=== PATIENT | female | born 1955 | race Caucasian/White ===

== ENCOUNTER 2018-03-28 13:13 | Emergency (ER) | payer OTHER ==
[2018-03-28] MEDS ORDERED: Diphtheria,Pertussis(Acell),Tetanus Vaccine 0.5 ML SDV IM ONE (13:26)
--- NOTE | 2018-03-28 13:30 | EDM.PDOC ---
ED HPI GENERAL MEDICAL PROBLEM - General Chief Complaint: General Stated Complaint: LACERATION Time Seen by Provider: 03/28/18 13:25 Source of Information: Reports: Patient History Limitations: Reports: No Limitations - History of Present Illness INITIAL COMMENTS - FREE TEXT/NARRATIVE: Patient is a 63-year-old female who is seen with lacerations to the left index finger done at work with a utility knife this is a small amount 0.4 mm laceration Onset: Today Duration: Minutes:, Constant Location: Reports: Lower Extremity, Left Severity: Mild Improves with: Reports: None Worsens with: Reports: None Context: Reports: Trauma Associated Symptoms: Reports: No Other Symptoms 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 - Related Data Allergies Allergy/AdvReac Type Severity Reaction Status Date / Time No Known Allergies Allergy Verified 03/28/18 13:14 Home Meds: Home Meds Aspirin [Ecotrin] 81 mg PO DAILY 03/28/18 [History] Cyanocobalamin (Vitamin B12) [Vitamin B12] 1,000 mg PO DAILY 03/28/18 [History] Ibuprofen 200 mg PO Q6HR PRN 03/28/18 [History] Pyridoxine HCl [Vitamin B-6] 1 tab PO DAILY 03/28/18 [History] ED ROS GENERAL - Review of Systems Review Of Systems: See Below Constitutional: Reports: No Symptoms HEENT: Reports: No Symptoms Respiratory: Reports: No Symptoms, Shortness of Breath Cardiovascular: Reports: No Symptoms Endocrine: Reports: No Symptoms GI/Abdominal: Reports: No Symptoms : Reports: No Symptoms Musculoskeletal: Reports: No Symptoms Skin: Reports: No Symptoms, Other (Small laceration) Neurological: Reports: No Symptoms Psychiatric: Reports: No Symptoms Hematologic/Lymphatic: Reports: No Symptoms ED EXAM, GENERAL - Physical Exam Exam: See Below Exam Limited By: No Limitations General Appearance: Alert, WD/WN, No Apparent Distress Ears: Normal External Exam, Normal Canal, Hearing Grossly Normal, Normal TMs Ear Exam: Bilateral Ear: Auricle Normal, Canal Normal, TM normal Nose: Normal Inspection, Normal Mucosa, No Blood Throat/Mouth: Normal Inspection, Normal Lips, Normal Teeth, Normal Gums, Normal Oropharynx, Normal Voice, No Airway Compromise Head: Atraumatic, Normocephalic Neck: Normal Inspection, Supple, Non-Tender, Full Range of Motion Respiratory/Chest: No Respiratory Distress, Lungs Clear, Normal Breath Sounds, No Accessory Muscle Use, Chest Non-Tender Cardiovascular: Normal Peripheral Pulses, Regular Rate, Rhythm, No Edema, No Gallop, No JVD, No Murmur, No Rub GI/Abdominal: Normal Bowel Sounds, Soft, Non-Tender, No Organomegaly, No Distention, No Abnormal Bruit, No Mass Rectal (Female) Exam: Deferred Back Exam: Normal Inspection, Full Range of Motion, NT Extremities: Normal Inspection, Normal Range of Motion, Non-Tender, Normal Capillary Refill, No Pedal Edema Neurological: Alert, Oriented, CN II-XII Intact, Normal Cognition, Normal Gait, Normal Reflexes, No Motor/Sensory Deficits Psychiatric: Normal Affect, Normal Mood Skin Exam: Warm, Dry, Intact, Normal Color, No Rash Lymphatic: No Adenopathy Course - Orders/Labs/Meds Orders: Active Orders 24 hr Category Date Time Status Vaccines to be Administered [RC] PER UNIT ROUTINE Care 03/28/18 13:27 Active Meds: Medications Discontinued Medications Generic Name Dose Route Start Last Admin Trade Name Freq PRN Reason Stop Dose Admin Diphtheria/Tetanus/Acell Pertussis 0.5 ml 03/28/18 13:26 03/28/18 13:52 Adacel IM 03/28/18 13:27 0.5 ml .ONCE ONE Administration Departure - Departure Time of Disposition: 14:03 Disposition: Home, Self-Care 01 Condition: Good Clinical Impression: Laceration Laceration of left index finger Qualifiers: Encounter type: initial encounter Damage to nail status: without damage Foreign body presence: without foreign body Qualified Code(s): S61.211A - Laceration without foreign body of left index finger without damage to nail, initial encounter - Discharge Information Instructions: Stitches, [place], or Adhesive Wound Closure, Nonsutured Laceration Care Referrals: PCP,None [Primary Care Provider] - Forms: ED Department Discharge Care Plan Goals: Laceration repair area was prepped and draped after appropriate cleansing of wound the wound was dried and closed with Dermabond patient tolerated well the procedure sent home in satisfactory condition Patient sent home with instructions to keep it dry return if any concerns - My Orders Last 24 Hours: My Active Orders 03/28/18 13:27 Vaccines to be Administered [RC] PER UNIT ROUTINE - Assessment/Plan Last 24 Hours: My Active Orders 03/28/18 13:27 Vaccines to be Administered [RC] PER UNIT ROUTINE
== END 2018-03-28 14:15 | disposition home or self-care (01) ==
LOC: LL.ED 13:13
DX: S61.211A Laceration without foreign body of left index finger without damage to nail, initial encounter (principal); Z79.82 Long term (current) use of aspirin; Z23 Encounter for immunization; W26.0XXA Contact with knife, initial encounter
CPT/HCPCS: 12001; 90471; 90715; 99283

== ENCOUNTER 2018-05-18 13:28 | Inpatient (IN) | payer MEDICARE, OTHER ==
[2018-05-18] MEDS ORDERED: Lactated Ringers 1,000 ML IV ONE (13:39)
[2018-05-18] MEDS ORDERED: Famotidine 20 MG/2 ML SDV IVPUSH ONE (13:39)
[2018-05-18] MEDS ORDERED: Pantoprazole 40 MG Vial IVPUSH ONE (13:39)
[2018-05-18] MEDS ORDERED: Ondansetron 4 MG/2 ML SDV IVPUSH ONE (13:39)
--- NOTE | 2018-05-18 13:39 | EDM.PDOC ---
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 Priority: Medium Current Visit: Yes Onset Date: 05/18/18 Annotation/Comment:: Consider high-protein Glucerna supplements as snacks depending on her clinical course. - Problem List Review Problem List Initiated/Reviewed/Updated: Yes - My Orders Last 24 Hours: My Active Orders 05/18/18 13:39 Peripheral IV Care [RC] . DIRECTED Abdomen Series w Chest 1V [CR] Stat CULTURE URINE [RM] Stat UA W/MICROSCOPIC [URIN] Stat Sodium Chloride 0.9% [Saline Flush] 10 ml FLUSH ASDIRECTED PRN Blood Culture x2 Reflex Set [OM.PC] Urgent Obtain Past Medical Record [OM.PC] Urgent Peripheral IV Insertion Adult [OM.PC] Stat Resuscitation Status Stat 05/18/18 13:45 cefTRIAXone [Rocephin] 1 gm Sodium Chloride 0.9% [Normal Saline] 100 ml IV Q12H metroNIDAZOLE/Normal Saline [Flagyl 500 MG in NS 100 ML] 500 mg Premix Bag 1 bag IV Q8H 05/18/18 13:50 CULTURE BLOOD [BC] Stat 05/18/18 14:07 CULTURE BLOOD [BC] Stat 05/18/18 14:10 H PYLORI STOOL ANTIGEN [MREF] Urgent OCCULT BLOOD DIAGNOSTIC [OP] Stat 05/18/18 14:53 Cardiac Monitoring [RC] . DIRECTED 05/18/18 Breakfast Nothing Per Oral Diet [DIET] - Assessment/Plan Admission H&P: Please use this note as an admission H&P Last 24 Hours: My Active Orders 05/18/18 13:39 Peripheral IV Care [RC] . DIRECTED Abdomen Series w Chest 1V [CR] Stat CULTURE URINE [RM] Stat UA W/MICROSCOPIC [URIN] Stat Sodium Chloride 0.9% [Saline Flush] 10 ml FLUSH ASDIRECTED PRN Blood Culture x2 Reflex Set [OM.PC] Urgent Obtain Past Medical Record [OM.PC] Urgent Peripheral IV Insertion Adult [OM.PC] Stat Resuscitation Status Stat 05/18/18 13:45 cefTRIAXone [Rocephin] 1 gm Sodium Chloride 0.9% [Normal Saline] 100 ml IV Q12H metroNIDAZOLE/Normal Saline [Flagyl 500 MG in NS 100 ML] 500 mg Premix Bag 1 bag IV Q8H 05/18/18 13:50 CULTURE BLOOD [BC] Stat 05/18/18 14:07 CULTURE BLOOD [BC] Stat 05/18/18 14:10 H PYLORI STOOL ANTIGEN [MREF] Urgent OCCULT BLOOD DIAGNOSTIC [OP] Stat 05/18/18 14:53 Cardiac Monitoring [RC] . DIRECTED 05/18/18 Breakfast Nothing Per Oral Diet [DIET] Assessment:: As above Plan: As above. Extensive precautions were given to the patient, who is in agreement with the treatment plan. The patient will require about 3-4 days of inpatient/ acute care secondary to multiple health problems as above.
[2018-05-18] MEDS: cefTRIAXone 1 GM in Sodium Chloride 0.9% 100 ML IV SCH (14:40)
[2018-05-18] MEDS: metroNIDAZOLE/Normal Saline 500 MG in Premix Bag 1 BAG IV SCH ×2 (14:40→21:24)
[2018-05-18] MEDS: Sodium Chloride 0.9% 10 ML Syringe FLUSH PRN ×3 (14:48→21:24)
[2018-05-18] MEDS: Lactated Ringers 1,000 ML IV SCH (16:00)
[2018-05-18] MEDS: Acetaminophen 325 MG Tab PO PRN (19:43)
[2018-05-18] MEDS: Ondansetron 4 MG/2 ML SDV IVPUSH PRN (19:43)
[2018-05-18] MEDS: fentaNYL 100 MCG/2 ML SDV IVPUSH PRN (19:44)
[2018-05-18] MEDS: Sodium Chloride 0.9% 10 ML Syringe FLUSH SCH (19:44)
[2018-05-18] MEDS ORDERED: Temazepam 15 MG Cap PO PRN (20:00)
[2018-05-19] MEDS: cefTRIAXone 1 GM in Sodium Chloride 0.9% 100 ML IV SCH ×2 (00:58→13:05)
[2018-05-19] MEDS: Sodium Chloride 0.9% 10 ML Syringe FLUSH PRN ×6 (00:58→14:52)
[2018-05-19] MEDS: Pantoprazole 40 MG Vial IVPUSH SCH ×2 (00:58→13:23)
[2018-05-19] MEDS: Lactated Ringers 1,000 ML IV SCH ×2 (01:09→19:31)
[2018-05-19] MEDS: fentaNYL 100 MCG/2 ML SDV IVPUSH PRN (01:40)
[2018-05-19] MEDS: traMADol 50 MG Tab PO PRN ×3 (05:13→20:38)
[2018-05-19] MEDS: metroNIDAZOLE/Normal Saline 500 MG in Premix Bag 1 BAG IV SCH (05:13)
[2018-05-19 07:46] LABS: CHLORIDE,CL 106 mmol/L (98-107); SODIUM,NA 140 mmol/L (136-145)
[2018-05-19] MEDS: Vitamin B6-pyridOXINE 100 MG Tab PO SCH (08:35)
[2018-05-19] MEDS: Sodium Chloride 0.9% 10 ML Syringe FLUSH SCH ×2 (08:35→19:34)
[2018-05-19] MEDS: Cyanocobalamin (Vitamin B12) 1,000 MCG Tab PO SCH (08:35)
--- NOTE | 2018-05-19 08:46 | PCM.PN ---
- General Info Date of Service: 05/19/18 Admission Dx/Problem (Free Text): Diverticulitis Functional Status: Reports: Pain Controlled, Tolerating Diet, Ambulating, Urinating. Denies: New Symptoms, Incentive Spirometry Pain Score: 5 - Review of Systems General: Denies: Fever, Weakness, Fatigue, Malaise, Chills, Night Sweats, Appetite (Appetite adequate) HEENT: Reports: Headaches (Stable bilateral frontal). Denies: Ear Pain, Eye Pain, Post Nasal Drip, Sinus Congestion, Sore Throat, Rhinitis, Visual Changes Pulmonary: Reports: No Symptoms. Denies: Shortness of Breath, Pleuritic Chest Pain, Cough, Sputum, Hemoptysis, Wheezing Cardiovascular: Reports: No Symptoms. Denies: Chest Pain, Palpitations, Dyspnea on Exertion, Orthopnea, PND, Edema, Lightheadedness, Other Gastrointestinal: Reports: Abdominal Pain, Diarrhea (About 10 watery bowel movements yesterday with possible purulent component?). Denies: Constipation, Decreased Appetite, Difficulty Swallowing, Flatus, Hematochezia, Melena, Nausea , Vomiting Genitourinary: Reports: No Symptoms. Denies: Dysuria, Frequency, Burning, Pain , Urgency, Incontinence, Hematuria, Retention, Flank Pain Musculoskeletal: Reports: No Symptoms. Denies: Neck Pain, Shoulder Pain, Arm Pain, Hand Pain, Back Pain, Leg Pain, Foot Pain, Joint Pain, Joint Swelling Skin: Reports: No Symptoms. Denies: Pallor, Diaphoresis, Bruising, Pruritis Neurological: Reports: Headache. Denies: Confusion, Dizziness, Numbness, Paresthesia, Pre-Existing Deficit, Tingling, Weakness Psychiatric: Reports: No Symptoms. Denies: Confusion, Depression, Anxiety, Agitation, Cravings, Hallucinations - Patient Data Vitals - Most Recent: Last Vital Signs Temp 36.4 C 05/19/18 05:22 Pulse 65 05/19/18 05:22 Resp 16 05/19/18 05:22 BP 120/68 05/19/18 05:22 Pulse Ox 95 05/19/18 05:22 Vital Signs - 24 hr 05/18/18 05/18/18 05/18/18 13:35 13:36 14:30 Temperature [ Oral] Temperature [ 36.4 C 36.0 C Temporal] Pulse, 91 95 90 Peripheral [ Left Pulse Oximetry] Respiratory 20 18 18 Rate Blood Pressure 109/64 102/72 108/69 [Left Upper Arm ] O2 Sat by Pulse 97 96 98 Oximetry 05/18/18 05/18/18 05/18/18 15:01 15:32 19:54 Temperature [ Oral] Temperature [ 36.4 C 36.4 C 36.6 C Temporal] Pulse, 82 74 75 Peripheral [ Left Pulse Oximetry] Respiratory 18 16 Rate Blood Pressure 119/70 116/73 108/76 [Left Upper Arm ] O2 Sat by Pulse 97 98 98 Oximetry 05/19/18 05/19/18 01:06 05:22 Temperature [ 36.4 C 36.4 C Oral] Temperature [ Temporal] Pulse, 63 65 Peripheral [ Left Pulse Oximetry] Respiratory 18 16 Rate Blood Pressure 129/67 120/68 [Left Upper Arm ] O2 Sat by Pulse 94 L 95 Oximetry Weight - Most Recent: 72.665 kg I&O - Last 24 Hours: Intake & Output 05/18/18 05/19/18 05/19/18 22:59 06:59 14:59 Intake Total 290 2500 Output Total 200 200 Balance 90 2300 Imaging Impressions - Last 24 Hours: property assessment monitor shows normal sinus rhythm with heart rate in the 60s to 70s with no ectopy or arrhythmia Acute abdominal x-rays shows moderate to severe COPD changes with no cardiomegaly, CHF, pulmonary infiltrates, pneumothorax, etc. with mildly prominent proximal aortic arch and mild aortic valve calcification. Mild to moderate nonspecific increased bowel gaseous pattern including very occasional fluid levels with no evidence of free air, ileus, obstruction, etc. Mild scoliosis and mild to moderate osteophytic changes also noted. Lab Results Last 24 Hours: Laboratory Results - last 24 hr 05/18/18 05/18/18 05/18/18 Range/Units 13:50 13:50 13:50 WBC 14.7 H (4.0-10.2) K/uL RBC 5.27 H (3.77-5.09) M/uL Hgb 16.7 H (11.7-15.5) g/dL Hct 49.5 H (34.0-46.0) % MCV 93.9 (84.0-98.0) fL MCH 31.7 (28.2-33.3) pg MCHC 33.7 (31.7-36.0) g/dL RDW 13.5 (11.2-14.1) % Plt Count 242 (150-350) K/uL Neut % (Auto) 77.3 (45.0-80.0) % Lymph % (Auto) 15.3 (10.0-50.0) % [place] % (Auto) 6.7 (2.0-14.0) % Eos % (Auto) 0.4 (0.0-5.0) % Baso % (Auto) 0.3 (0.0-2.0) % Neut # (Auto) 11.39 H (1.40-7.00) K/uL Lymph # (Auto) 2.25 (0.50-3.50) K/uL [place] # (Auto) 0.99 (0.00-1.00) K/uL Eos # (Auto) 0.06 (0.00-0.50) K/uL Baso # (Auto) 0.04 (0.00-0.20) K/uL PT 10.5 (9.8-11.7) SEC INR 1.0 APTT 24.9 (22.1-29.8) SEC Sodium (136-145) mmol/L Potassium (3.5-5.1) mmol/L Chloride (98-107) mmol/L Carbon Dioxide (21.0-32.0) mmol/L BUN (7-18) mg/dL Creatinine (0.51-1.17) mg/dL Est Cr Clr Drug Dosing mL/min Estimated GFR (MDRD) mL/min Glucose (74-106) mg/dL Hemoglobin A1c (4.3-5.7) % Lactic Acid (0.4-2.0) mmol/L Uric Acid (2.6-7.2) mg/dL Calcium (8.5-10.1) mg/dL Magnesium (1.8-2.4) mg/dL Total Bilirubin (0.2-1.0) mg/dL AST (15-37) U/L ALT (12-78) U/L Alkaline Phosphatase (46-116) IU/L Total Protein (6.4-8.2) g/dL Albumin (3.4-5.0) g/dL Amylase 29 (25-115) U/L Lipase (73-393) U/L Specimen Type Urine Color Urine Appearance Urine pH (5.0-9.0) Ur Specific [place] (1.005-1.030) Urine Protein (NEGATIVE) mg/dL Urine Glucose (UA) (NEGATIVE) mg/dL Urine Ketones (NEGATIVE) mg/dL Urine Occult Blood (NEGATIVE) Urine Nitrite (NEGATIVE) Urine Bilirubin (NEGATIVE) Urine Urobilinogen (0.2-1.0) E.U./dL Ur Leukocyte Esterase (NEGATIVE) Urine RBC /HPF Urine WBC /HPF Ur Epithelial Cells /LPF Urine Bacteria (NONE TO FEW) /HPF Hyaline Casts (NEGATIVE) /LPF Granular Casts (NEGATIVE) /LPF Urine Mucus (NEGATIVE) /LPF 05/18/18 05/18/18 05/18/18 Range/Units 13:50 13:50 18:50 WBC (4.0-10.2) K/uL RBC (3.77-5.09) M/uL Hgb (11.7-15.5) g/dL Hct (34.0-46.0) % MCV (84.0-98.0) fL MCH (28.2-33.3) pg MCHC (31.7-36.0) g/dL RDW (11.2-14.1) % Plt Count (150-350) K/uL Neut % (Auto) (45.0-80.0) % Lymph % (Auto) (10.0-50.0) % [place] % (Auto) (2.0-14.0) % Eos % (Auto) (0.0-5.0) % Baso % (Auto) (0.0-2.0) % Neut # (Auto) (1.40-7.00) K/uL Lymph # (Auto) (0.50-3.50) K/uL [place] # (Auto) (0.00-1.00) K/uL Eos # (Auto) (0.00-0.50) K/uL Baso # (Auto) (0.00-0.20) K/uL PT (9.8-11.7) SEC INR APTT (22.1-29.8) SEC Sodium 139 (136-145) mmol/L Potassium 3.5 (3.5-5.1) mmol/L Chloride 102 (98-107) mmol/L Carbon Dioxide 25.3 (21.0-32.0) mmol/L BUN 19 H (7-18) mg/dL Creatinine 1.14 (0.51-1.17) mg/dL Est Cr Clr Drug Dosing 46.67 mL/min Estimated GFR (MDRD) 48 mL/min Glucose 150 H (74-106) mg/dL Hemoglobin A1c (4.3-5.7) % Lactic Acid 1.5 (0.4-2.0) mmol/L Uric Acid 7.2 (2.6-7.2) mg/dL Calcium 9.1 (8.5-10.1) mg/dL Magnesium 2.0 (1.8-2.4) mg/dL Total Bilirubin 0.4 (0.2-1.0) mg/dL AST 29 (15-37) U/L ALT 46 (12-78) U/L Alkaline Phosphatase 40 L (46-116) IU/L Total Protein 7.7 (6.4-8.2) g/dL Albumin 3.2 L (3.4-5.0) g/dL Amylase (25-115) U/L Lipase 92 (73-393) U/L Specimen Type Urinvoid Urine Color Jessica Urine Appearance Slightly cloudy Urine pH 5.0 (5.0-9.0) Ur Specific [place] >= 1.030 (1.005-1.030) Urine Protein 100 H (NEGATIVE) mg/dL Urine Glucose (UA) Negative (NEGATIVE) mg/dL Urine Ketones Trace H (NEGATIVE) mg/dL Urine Occult Blood Negative (NEGATIVE) Urine Nitrite Negative (NEGATIVE) Urine Bilirubin Small H (NEGATIVE) Urine Urobilinogen 0.2 (0.2-1.0) E.U./dL Ur Leukocyte Esterase Negative (NEGATIVE) Urine RBC 0-5 /HPF Urine WBC 10-20 H /HPF Ur Epithelial Cells Many H /LPF Urine Bacteria Moderate H (NONE TO FEW) /HPF Hyaline Casts Few H (NEGATIVE) /LPF Granular Casts Few H (NEGATIVE) /LPF Urine Mucus Few H (NEGATIVE) /LPF 05/19/18 05/19/18 05/19/18 Range/Units 07:05 07:05 07:05 WBC 8.8 (4.0-10.2) K/uL RBC 4.36 (3.77-5.09) M/uL Hgb 14.0 D (11.7-15.5) g/dL Hct 41.3 (34.0-46.0) % MCV 94.7 (84.0-98.0) fL MCH 32.1 (28.2-33.3) pg MCHC 33.9 (31.7-36.0) g/dL RDW 13.2 (11.2-14.1) % Plt Count 186 (150-350) K/uL Neut % (Auto) 63.7 (45.0-80.0) % Lymph % (Auto) 22.4 (10.0-50.0) % [place] % (Auto) 10.2 (2.0-14.0) % Eos % (Auto) 3.2 (0.0-5.0) % Baso % (Auto) 0.5 (0.0-2.0) % Neut # (Auto) 5.58 (1.40-7.00) K/uL Lymph # (Auto) 1.96 (0.50-3.50) K/uL [place] # (Auto) 0.89 (0.00-1.00) K/uL Eos # (Auto) 0.28 (0.00-0.50) K/uL Baso # (Auto) 0.04 (0.00-0.20) K/uL PT (9.8-11.7) SEC INR APTT (22.1-29.8) SEC Sodium 140 (136-145) mmol/L Potassium 3.4 L (3.5-5.1) mmol/L Chloride 106 (98-107) mmol/L Carbon Dioxide 24.7 (21.0-32.0) mmol/L BUN 14 (7-18) mg/dL Creatinine 0.84 (0.51-1.17) mg/dL Est Cr Clr Drug Dosing 63.34 mL/min Estimated GFR (MDRD) > 60 mL/min Glucose 111 H (74-106) mg/dL Hemoglobin A1c 5.8 H (4.3-5.7) % Lactic Acid (0.4-2.0) mmol/L Uric Acid (2.6-7.2) mg/dL Calcium 8.3 L (8.5-10.1) mg/dL Magnesium 1.8 (1.8-2.4) mg/dL Total Bilirubin 0.2 (0.2-1.0) mg/dL AST 25 (15-37) U/L ALT 33 (12-78) U/L Alkaline Phosphatase 27 L (46-116) IU/L Total Protein 6.0 L (6.4-8.2) g/dL Albumin 2.4 L (3.4-5.0) g/dL Amylase 28 (25-115) U/L Lipase 132 (73-393) U/L Specimen Type Urine Color Urine Appearance Urine pH (5.0-9.0) Ur Specific [place] (1.005-1.030) Urine Protein (NEGATIVE) mg/dL Urine Glucose (UA) (NEGATIVE) mg/dL Urine Ketones (NEGATIVE) mg/dL Urine Occult Blood (NEGATIVE) Urine Nitrite (NEGATIVE) Urine Bilirubin (NEGATIVE) Urine Urobilinogen (0.2-1.0) E.U./dL Ur Leukocyte Esterase (NEGATIVE) Urine RBC /HPF Urine WBC /HPF Ur Epithelial Cells /LPF Urine Bacteria (NONE TO FEW) /HPF Hyaline Casts (NEGATIVE) /LPF Granular Casts (NEGATIVE) /LPF Urine Mucus (NEGATIVE) /LPF Blood cultures 2 collected in the emergency room with results pending Ruben Results Last 24 Hours: Microbiology 05/18/18 14:10 Stool Occult Blood (RUBEN) - Final Stool / Feces Hemoccult of stools positive on admission. Stool specimens collected with stool culture and sensitivity and C. difficile toxin evaluation still pending Urine specimen sent for culture and sensitivity Med Orders - Current: Current Medications Acetaminophen (Tylenol) 650 mg PO Q4H PRN PRN Reason: Pain Last Admin: 05/18/18 19:43 Dose: 650 mg Cyanocobalamin (Vitamin B12) 1,000 mcg PO DAILY ESTER Last Admin: 05/19/18 08:35 Dose: 1,000 mcg Famotidine (Pepcid) 20 mg IVPUSH Q12H ESTER Fentanyl (Sublimaze) 50 mcg IVPUSH Q4H PRN PRN Reason: Pain (severe 7-10) Last Admin: 05/19/18 01:40 Dose: 50 mcg Ceftriaxone Sodium 1 gm/ (Sodium Chloride) 100 mls @ 200 mls/hr IV Q12H ESTER Last Admin: 05/19/18 00:58 Dose: 200 mls/hr Metronidazole 500 mg/ Premix 100 mls @ 100 mls/hr IV Q8H [facility] Last Admin: 05/19/18 05:13 Dose: 100 mls/hr Lactated Ringer's (Ringers, Lactated) 1,000 mls @ 100 mls/hr IV ASDIRECTED [facility] Last Admin: 05/19/18 01:09 Dose: 100 mls/hr Ondansetron HCl (Zofran) 4 mg IVPUSH Q6H PRN PRN Reason: Nausea/Vomiting Last Admin: 05/18/18 19:43 Dose: 4 mg Pantoprazole Sodium (Protonix Iv) 40 mg IVPUSH Q12H [facility] Last Admin: 05/19/18 00:58 Dose: 40 mg Pyridoxine HCl (Vitamin B6-Pyridoxine) 25 mg PO DAILY [facility] Last Admin: 05/19/18 08:35 Dose: 25 mg Sodium Chloride (Saline Flush) 10 ml FLUSH ASDIRECTED PRN PRN Reason: Keep Vein Open Last Admin: 05/19/18 05:14 Dose: 10 ml Sodium Chloride (Saline Flush) 10 ml FLUSH Q12HR [facility] Last Admin: 05/19/18 08:35 Dose: 10 ml Temazepam (Restoril) 15 mg PO DAILY@2000 PRN PRN Reason: Insomnia Tramadol HCl (Ultram) 50 mg PO Q6H PRN PRN Reason: Pain (moderate 4-6) Last Admin: 05/19/18 05:13 Dose: 50 mg Discontinued Medications Famotidine (Pepcid) 40 mg IVPUSH ONETIME ONE Stop: 05/18/18 13:40 Last Admin: 05/18/18 14:39 Dose: 40 mg Famotidine (Pepcid) 20 mg IVPUSH Q12H [facility] Lactated Ringer's (Ringers, Lactated) 1,000 mls @ 999 mls/hr IV .BOLUS ONE Stop: 05/18/18 14:39 Last Admin: 05/18/18 14:40 Dose: 999 mls/hr Ceftriaxone Sodium 1 gm/ (Sodium Chloride) 100 mls @ 200 mls/hr IV Q12H [facility] Ondansetron HCl (Zofran) 4 mg IVPUSH ONETIME ONE Stop: 05/18/18 13:40 Last Admin: 05/18/18 14:40 Dose: 4 mg Pantoprazole Sodium (Protonix Iv) 40 mg IVPUSH ONETIME ONE Stop: 05/18/18 13:40 Last Admin: 05/18/18 14:40 Dose: 40 mg Pantoprazole Sodium (Protonix Iv) 40 mg IVPUSH Q12H ESTER - Exam Quality Assessment: DVT Prophylaxis. No: Supplemental Oxygen, Central Line/PICC , Urine Catheter, Skin Breakdown, Restraints General: Alert, Oriented, Cooperative, No Acute Distress HEENT: Pupils Equal, Pupils Reactive, EOMI, Mucous Membr. Moist/[place]. No: Scleral Icterus Neck: Supple, Trachea Midline, No JVD, No Thyromegaly, +2 Carotid Pulse wo Bruit. No: Lymphadenopathy Lungs: Clear to Auscultation, Normal Respiratory Effort. No: Rub Cardiovascular: Regular Rate, Regular Rhythm, No Murmurs. No: Gallops, Rubs GI/Abdominal Exam: Normal Bowel Sounds, No Organomegaly, No Distention, No Abnormal Bruit, No Mass, Rebound (Mild), Tender (Somewhat increased moderate left lower quadrant palpation pain). No: Guarding, Rigid (Female) Exam: Deferred Back Exam: Normal Inspection, Full Range of Motion, Other (Mild scoliosis). No : CVA Tenderness (L), CVA Tenderness (R), Muscle Spasm Extremities: Normal Inspection, Normal Range of Motion, Non-Tender, No Pedal Edema, Normal Capillary Refill. No: Jeff's Sign Peripheral Pulses: 2+: Radial (L), Radial (R), Dorsalis Pedis (L), Dorsalis Pedis (R) Skin: Warm, Dry, Intact Neurological: No New Focal Deficit, Other (No clinical orthostasis) Psy/Mental Status: Anxious (Mild), Depressed (Mild). No: Agitated, Hallucinations, Withdrawal Symptoms - Problem List & Annotations (1) Diverticulitis SNOMED Code(s): 609862964 Code(s): K57.92 - DVTRCLI OF INTEST, PART UNSP, W/O PERF OR ABSCESS W/O BLEED Status: Acute Priority: High Current Visit: Yes Onset Date: ~05/03 Annotation/Comment:: Resolved leukocytosis with current aggressive antibiotic therapy. Note, however, development of beginning peritoneal signs. Secondary to progressive clinical findings CT scan of the abdomen and pelvis with oral and IV contrast will be conducted HERRERA to rule out possible developing bowel perforation and/or abdominal abscess. Note that patient did complete her Cipro and Flagyl on 05/11/18 with refractory symptoms for previously known diverticulitis as per emergency room note. Stool specimens have been collected for culture and sensitivity and C. difficile toxin with results pending. Note Hemoccult-positive stools on admission. High-dose IV Flagyl and IV Rocephin started in the emergency room with patient started on a 1 L IV bolus of lactated Ringer secondary to borderline sepsis criteria, although note normal lactic acid level on admission. Continue Abdominal assessments with vitals. Further GI workup depending on her clinical course with surgical consultation scheduled for later today. Patient would benefit from a colonoscopy after current infection has resolved. Her HCM is also somewhat behind schedule with update of her mammogram, etc. also advisable. Continue IV fluids and telemetry secondary to borderline sepsis criteria. Blood cultures 2 were collected. (2) COPD (chronic obstructive pulmonary disease) SNOMED Code(s): 34669985 Code(s): J44.9 - CHRONIC OBSTRUCTIVE PULMONARY DISEASE, UNSPECIFIED Status : Chronic Priority: Medium Current Visit: Yes Qualifiers: COPD type: emphysema Emphysema type: panlobular Qualified Code(s): J43.1 - Panlobular emphysema Annotation/Comment:: No recent fever or bronchitic type symptoms. Note history of sarcoidosis as above with no current medical therapy required. PFTs should be conducted on an outpatient basis. Smoking cessation HERRERA as below. (3) Hypertension SNOMED Code(s): 26325611 Code(s): I10 - ESSENTIAL (PRIMARY) HYPERTENSION Status: Chronic Priority : Medium Current Visit: Yes Qualifiers: Hypertension type: essential hypertension Qualified Code(s): I10 - Essential (primary) hypertension Annotation/Comment:: No current medical therapy required. Continue to observe blood pressures closely secondary to her borderline sepsis criteria. Blood Pressures variable during this hospitalization with no significant hypotension for now. (4) Mixed anxiety depressive disorder SNOMED Code(s): 611497092 Code(s): F41.8 - OTHER SPECIFIED ANXIETY DISORDERS Status: Chronic Priority: Medium Current Visit: Yes Annotation/Comment:: Stable by history. Moderate control at this time. Note current nonspecific headache. The patient did receive IV fentanyl yesterday with additional when necessary Ultram use for control of her abdominal pain. Continue to observe closely with no change in medical therapy for now. (5) Osteoarthritis SNOMED Code(s): 214478441 Code(s): M19.90 - UNSPECIFIED OSTEOARTHRITIS, UNSPECIFIED SITE Status: Chronic Priority: Medium Current Visit: Yes Qualifiers: Osteoarthritis location: multiple joints Osteoarthritis type: primary Qualified Code(s): M15.0 - Primary generalized (osteo)arthritis Annotation/Comment:: Stable by history (6) Peptic reflux disease SNOMED Code(s): 661636861 Code(s): K21.9 - GASTRO-ESOPHAGEAL REFLUX DISEASE WITHOUT ESOPHAGITIS Status: Chronic Priority: Medium Current Visit: Yes Annotation/Comment:: Stable by history. High-dose IV Protonix and IV Pepcid given in the emergency room. (7) Sarcoidosis SNOMED Code(s): 72795159 Code(s): D86.9 - SARCOIDOSIS, UNSPECIFIED Status: Chronic Priority: Medium Current Visit: Yes Annotation/Comment:: As above (8) Tobacco abuse counseling SNOMED Code(s): 590609366, 310883102, 258170598 Code(s): Z71.6 - TOBACCO ABUSE COUNSELING Status: Chronic Priority: Medium Current Visit: Yes Annotation/Comment:: Tobacco cessation information to be provided at discharge. She does not need a nicotine patch by her history. (9) Hypoalbuminemia SNOMED Code(s): 001096520 Code(s): E88.09 - OTH DISORDERS OF PLASMA-PROTEIN METABOLISM, NEC Status: Acute Priority: Medium Current Visit: Yes Onset Date: 05/18/18 Annotation/Comment:: Initiate high-protein Glucerna supplements as snacks (10) UTI (urinary tract infection) SNOMED Code(s): 59819021 Code(s): N39.0 - URINARY TRACT INFECTION, SITE NOT SPECIFIED Status: Acute Priority: Medium Current Visit: Yes Onset Date: 05/19/18 Qualifiers: Urinary tract infection type: acute cystitis Hematuria presence: without hematuria Qualified Code(s): N30.00 - Acute cystitis without hematuria Annotation/Comment:: Borderline UTI by yesterday's UA. Urine culture and sensitivity pending. Continue antibiotic therapy as above. - Problem List Review Problem List Initiated/Reviewed/Updated: Yes - My Orders Last 24 Hours: My Active Orders 05/18/18 13:39 Peripheral IV Care [RC] . DIRECTED Abdomen Series w Chest 1V [CR] Stat Sodium Chloride 0.9% [Saline Flush] 10 ml FLUSH ASDIRECTED PRN Blood Culture x2 Reflex Set [OM.PC] Urgent Peripheral IV Insertion Adult [OM.PC] Stat Resuscitation Status Stat 05/18/18 13:45 cefTRIAXone [Rocephin] 1 gm Sodium Chloride 0.9% [Normal Saline] 100 ml IV Q12H metroNIDAZOLE/Normal Saline [Flagyl 500 MG in NS 100 ML] 500 mg Premix Bag 1 bag IV Q8H 05/18/18 13:50 CULTURE BLOOD [BC] Stat 05/18/18 14:07 CULTURE BLOOD [BC] Stat 05/18/18 14:10 H PYLORI STOOL ANTIGEN [MREF] Urgent 05/18/18 14:53 Cardiac Monitoring [RC] Q2HR 05/18/18 15:32 Communication Order [RC] Q4HR Communication Order [RC] ROUTINE Height and Weight [RC] DAILY Intake and Output Strict [RC] ASDIRECTED Oxygen Therapy [RC] PRN Pulse Oximetry [RC] ASDIRECTED Up With Assistance [RC] ASDIRECTED Vital Signs [RC] Q4HR C DIFFICILE TOXIN BY PCR [MREF] Routine Acetaminophen [Tylenol] 650 mg PO Q4H PRN Ondansetron [Zofran] 4 mg IVPUSH Q6H PRN GM Immunization Reflex [OM.PC] Click To Edit 05/18/18 15:34 Communication, Vaccine [RC] PER UNIT ROUTINE 05/18/18 15:36 Notify Provider Consults [RC] ASDIRECTED 05/18/18 15:43 Cardiac Monitoring [RC] . DIRECTED 05/18/18 15:45 Lactated Ringers [Ringers, Lactated] 1,000 ml IV ASDIRECTED 05/18/18 16:05 STOOL CULTURE [MREF] Routine 05/18/18 18:50 CULTURE URINE [RM] Stat UA W/MICROSCOPIC [URIN] Stat 05/18/18 19:10 traMADol [Ultram] 50 mg PO Q6H PRN 05/18/18 19:12 fentaNYL [Sublimaze] 50 mcg IVPUSH Q4H PRN 05/18/18 20:00 Sodium Chloride 0.9% [Saline Flush] 10 ml FLUSH Q12HR Temazepam [Restoril] 15 mg PO DAILY@1999 PRN 05/18/18 Dinner Heart Healthy Diet [DIET] 05/19/18 01:30 Pantoprazole [ProTONIX IV] 40 mg IVPUSH Q12H 05/19/18 05:11 Consult to Physician [CONS] Routine Abdomen Series w Chest 1V [CR] Routine 05/19/18 06:48 Isolation [COMM] Routine 05/19/18 08:00 Cyanocobalamin (Vitamin B12) [Vitamin B12] 1,000 mcg PO DAILY Vitamin B6-pyridOXINE 25 mg PO DAILY 05/19/18 08:44 Abdomen Pelvis w Cont [CT] Urgent 05/19/18 15:30 Famotidine [Pepcid] 20 mg IVPUSH Q12H - Assessment Assessment:: As above - Plan Plan:: As above. Extensive precautions were given to the patient, who is in agreement with the treatment plan. Anticipate an additional 3 days of inpatient/acute care versus possible transfer to [place] for surgery, if abdominal abscesses present.
[2018-05-19] MEDS ORDERED: Iopamidol 612 MG/ML 100 ML Bottle IVPUSH ONE (08:48)
[2018-05-19] MEDS: metroNIDAZOLE 500 MG Tab PO SCH ×2 (13:04→20:46)
[2018-05-19] MEDS ORDERED: Loperamide 2 MG Tab PO ONE (14:43)
[2018-05-19] MEDS ORDERED: Loperamide 2 MG Tab PO PRN (14:43)
[2018-05-19] MEDS: Famotidine 20 MG/2 ML SDV IVPUSH SCH (14:53)
[2018-05-19] MEDS ORDERED: cefTRIAXone 1 GM in Sodium Chloride 0.9% 100 ML IV SCH (15:32)
[2018-05-19] MEDS ORDERED: Pantoprazole 40 MG Vial IVPUSH SCH (21:00)
[2018-05-19] MEDS ORDERED: Famotidine 20 MG/2 ML SDV IVPUSH SCH (21:00)
[2018-05-20] MEDS: cefTRIAXone 1 GM in Sodium Chloride 0.9% 100 ML IV SCH (02:27)
[2018-05-20] MEDS: Pantoprazole 40 MG Vial IVPUSH SCH ×2 (02:27→13:24)
[2018-05-20] MEDS: traMADol 50 MG Tab PO PRN ×2 (02:35→13:21)
[2018-05-20] MEDS: Famotidine 20 MG/2 ML SDV IVPUSH SCH ×2 (03:30→15:30)
[2018-05-20] MEDS: metroNIDAZOLE 500 MG Tab PO SCH ×3 (05:47→21:54)
[2018-05-20 07:58] LABS: CHLORIDE,CL 108 mmol/L (98-107); SODIUM,NA 142 mmol/L (136-145)
[2018-05-20] MEDS: Vitamin B6-pyridOXINE 100 MG Tab PO SCH (08:01)
[2018-05-20] MEDS: Cyanocobalamin (Vitamin B12) 1,000 MCG Tab PO SCH (08:03)
[2018-05-20] MEDS: Sodium Chloride 0.9% 10 ML Syringe FLUSH SCH ×2 (08:04→19:03)
[2018-05-20] MEDS: Acetaminophen 325 MG Tab PO PRN (08:04)
--- NOTE | 2018-05-20 08:18 | OR ---
Date of Procedure: 05/19/2018 HISTORY OF PRESENT ILLNESS: This 63-year-old female was admitted yesterday with complaints of continued abdominal pain and diarrhea. She says she has had these symptoms for about 6 weeks. Approximately 2 weeks ago, she underwent a CT scan for evaluation of her symptoms and was diagnosed with sigmoid diverticulitis. She was placed on oral antibiotics, and she says she seemed to improve slightly, but once she stopped the antibiotics, the symptoms worsened again, which prompted her admission to the hospital yesterday. She describes her pain is being mainly in the lower abdomen and it is crampy in nature. It is associated with diarrhea, and recently she saw some blood in her stool with this. Her appetite has been decreased with this. To further evaluate her symptoms, she underwent a CT scan of the abdomen today and this was interpreted as showing thickening of the bowel wall along most of the left half of the colon, although there did appear to be some improvement in the diverticulitis. These findings were felt to be worrisome for C. difficile colitis. PAST MEDICAL HISTORY: The patient's past medical history shows that she has otherwise been healthy. MEDICATIONS: She does not take any routine medications. PAST SURGICAL HISTORY: She has no previous surgery. ALLERGIES: She is allergic to sulfa. FAMILY HISTORY: Negative for any known gastrointestinal abnormalities. SOCIAL HISTORY: The patient does currently work a few hours every week. She is not currently . REVIEW OF SYSTEMS: On system review, she indicates that before this episode, her bowels worked well. She does not typically have symptoms of heartburn and has been active without shortness of breath or chest pain. She also notes that she has had some urinary discomfort with this abdominal pain. PHYSICAL EXAMINATION: VITAL SIGNS: Temperature of 97.7, pulse 62, blood pressure is 104/73. GENERAL: The patient is an alert, adult female. She is currently in no acute distress. HEENT: Her head is normocephalic. No scleral icterus. GASTROINTESTINAL: Her abdomen is mildly distended. There is tenderness with mild guarding to palpation in the left lower and mid lower abdomen. I do not feel any palpable mass. Her upper abdomen does not demonstrate any tenderness and it is soft and the right lower quadrant shows minimal tenderness. She has no CVA tenderness. EXTREMITIES: No edema. DIAGNOSTIC DATA: Serum white blood cell count this morning is normal at 8.8, which is down from 14.7 upon admission yesterday. Chemistry studies show normal kidney function and no liver enzyme elevation. IMPRESSION: 1. Clostridium difficile colitis. 2. History of sigmoid diverticulitis. RECOMMENDATIONS: Agree with current plan to convert to oral Flagyl for treating the C. difficile. Once the patient's inflammation has resolved in approximately 4 to 6 weeks, the patient will need colonoscopy. This can be scheduled through her local provider. Case was discussed with Dr. Cotter. CHRYSTAL Sebastian MD /[id number]
--- NOTE | 2018-05-20 09:00 | PCM.PN ---
- General Info Date of Service: 05/20/18 Admission Dx/Problem (Free Text): Diverticulitis Functional Status: Reports: Pain Controlled, Tolerating Diet, Ambulating, Urinating, New Symptoms. Denies: Incentive Spirometry Pain Score: 7 - Review of Systems General: Denies: Fever, Weakness, Fatigue, Malaise, Chills, Night Sweats, Appetite (Appetite good) HEENT: Reports: No Symptoms. Denies: Dysphasia, Ear Pain, Eye Pain, Glasses, Headaches, Sinus Congestion, Sore Throat, Rhinitis, Visual Changes Pulmonary: Reports: No Symptoms. Denies: Shortness of Breath, Pleuritic Chest Pain, Cough, Sputum, Wheezing Cardiovascular: Reports: No Symptoms. Denies: Chest Pain, Palpitations, Dyspnea on Exertion, Orthopnea, PND, Edema, Lightheadedness Gastrointestinal: Reports: Abdominal Pain, Diarrhea. Denies: Constipation, Decreased Appetite, Difficulty Swallowing, Flatus, Hematochezia, Melena, Nausea , Vomiting Genitourinary: Reports: No Symptoms. Denies: Dysuria, Frequency, Burning, Pain , Urgency, Incontinence, Hematuria, Retention, Flank Pain Musculoskeletal: Reports: No Symptoms. Denies: Neck Pain, Shoulder Pain, Arm Pain, Back Pain, Leg Pain Skin: Reports: No Symptoms. Denies: Pallor, Diaphoresis, Bruising Neurological: Reports: No Symptoms. Denies: Confusion, Dizziness, Headache, Numbness, Paresthesia, Tingling, Weakness Psychiatric: Reports: No Symptoms. Denies: Confusion, Depression, Agitation, Hallucinations - Patient Data Vitals - Most Recent: Last Vital Signs Temp 36.4 C 05/20/18 08:00 Pulse 65 05/20/18 08:00 Resp 13 05/20/18 08:00 BP 130/73 05/20/18 08:00 Pulse Ox 94 L 05/20/18 08:00 Vital Signs - 24 hr 05/19/18 05/19/18 05/19/18 11:56 16:00 19:04 Temperature [ 36.2 C 36.4 C Oral] Pulse, 73 73 66 Peripheral [ Left Pulse Oximetry] Respiratory 16 18 18 Rate Blood Pressure 110/59 L 113/69 115/63 [Left Upper Arm ] O2 Sat by Pulse 96 95 95 Oximetry 05/20/18 08:00 Temperature [ 36.4 C Oral] Pulse, 65 Peripheral [ Left Pulse Oximetry] Respiratory 13 Rate Blood Pressure 130/73 [Left Upper Arm ] O2 Sat by Pulse 94 L Oximetry Weight - Most Recent: 72.665 kg I&O - Last 24 Hours: Intake & Output 05/19/18 05/20/18 05/20/18 22:59 06:59 14:59 Intake Total 1837 Output Total 700 Balance 1137 Imaging Impressions - Last 24 Hours: CT scan of the abdomen and pelvis with oral and IV contrast conducted on 05/19/18 confirms suspicion of probable C. difficile colitis extending to the transverse colon. Previous sigmoid diverticulitis is actually improving. Additional moderate hiatal hernia noted. No evidence of bowel perforation, abscess, etc. quality assurance consultant shows normal sinus rhythm in the 60s with no ectopy or arrhythmia. Lab Results Last 24 Hours: Laboratory Results - last 24 hr 05/20/18 05/20/18 05/20/18 Range/Units 07:13 07:13 07:13 WBC 5.5 (4.0-10.2) K/uL RBC 4.06 (3.77-5.09) M/uL Hgb 12.8 (11.7-15.5) g/dL Hct 38.7 (34.0-46.0) % MCV 95.3 (84.0-98.0) fL MCH 31.5 (28.2-33.3) pg MCHC 33.1 (31.7-36.0) g/dL RDW 13.2 (11.2-14.1) % Plt Count 186 (150-350) K/uL Neut % (Auto) 55.3 (45.0-80.0) % Lymph % (Auto) 26.1 (10.0-50.0) % [place] % (Auto) 12.7 (2.0-14.0) % Eos % (Auto) 5.5 H (0.0-5.0) % Baso % (Auto) 0.4 (0.0-2.0) % Neut # (Auto) 3.02 (1.40-7.00) K/uL Lymph # (Auto) 1.42 (0.50-3.50) K/uL [place] # (Auto) 0.69 (0.00-1.00) K/uL Eos # (Auto) 0.30 (0.00-0.50) K/uL Baso # (Auto) 0.02 (0.00-0.20) K/uL Sodium 142 (136-145) mmol/L Potassium 3.3 L (3.5-5.1) mmol/L Chloride 108 H (98-107) mmol/L Carbon Dioxide 26.2 (21.0-32.0) mmol/L BUN 8 (7-18) mg/dL Creatinine 0.76 (0.51-1.17) mg/dL Est Cr Clr Drug Dosing 70.01 mL/min Estimated GFR (MDRD) > 60 mL/min Glucose 95 (74-106) mg/dL Lactic Acid 0.8 (0.4-2.0) mmol/L Calcium 7.9 L (8.5-10.1) mg/dL Magnesium 1.6 L (1.8-2.4) mg/dL Total Bilirubin 0.1 L (0.2-1.0) mg/dL AST 26 (15-37) U/L ALT 28 (12-78) U/L Alkaline Phosphatase 24 L (46-116) IU/L Total Protein 5.4 L (6.4-8.2) g/dL Albumin 2.2 L (3.4-5.0) g/dL Ruben Results Last 24 Hours: Microbiology 05/18/18 18:50 Urine Culture - Final Urine, Clean Catch MIXED POSITIVE DIANA DAY 2 05/18/18 14:07 Aerobic Blood Culture - Preliminary Blood - Venous - Lab Draw NO GROWTH AFTER 1 DAY Anaerobic Blood Culture - Preliminary NO GROWTH AFTER 1 DAY 05/18/18 13:50 Aerobic Blood Culture - Preliminary Blood - Venous NO GROWTH AFTER 1 DAY Anaerobic Blood Culture - Preliminary NO GROWTH AFTER 1 DAY Note previous positive Hemoccult. Stool specimens for C. difficile toxin, culture, and sensitivity are still pending. Urine culture and sensitivity still pending. Med Orders - Current: Current Medications Acetaminophen (Tylenol) 650 mg PO Q4H PRN PRN Reason: Pain Last Admin: 05/20/18 08:04 Dose: 650 mg Cyanocobalamin (Vitamin B12) 1,000 mcg PO DAILY ESTER Last Admin: 05/20/18 08:03 Dose: 1,000 mcg Famotidine (Pepcid) 20 mg IVPUSH Q12H ESTER Last Admin: 05/20/18 03:30 Dose: 20 mg Fentanyl (Sublimaze) 50 mcg IVPUSH Q4H PRN PRN Reason: Pain (severe 7-10) Last Admin: 05/19/18 01:40 Dose: 50 mcg Ceftriaxone Sodium 1 gm/ (Sodium Chloride) 100 mls @ 200 mls/hr IV Q12H COUNT INCLUDES THE [facility] Last Admin: 05/20/18 02:27 Dose: 200 mls/hr Lactated Ringer's (Ringers, Lactated) 1,000 mls @ 100 mls/hr IV ASDIRECTED COUNT INCLUDES THE [facility] Last Admin: 05/19/18 19:31 Dose: 100 mls/hr Loperamide HCl (Imodium Ad) 2 mg PO Q4H PRN PRN Reason: Diarrhea Stop: 05/21/18 08:00 Last Admin: 05/20/18 08:12 Dose: 2 mg Metronidazole (Flagyl) 500 mg PO Q8H COUNT INCLUDES THE [facility] Last Admin: 05/20/18 05:47 Dose: 500 mg Ondansetron HCl (Zofran) 4 mg IVPUSH Q6H PRN PRN Reason: Nausea/Vomiting Last Admin: 05/18/18 19:43 Dose: 4 mg Pantoprazole Sodium (Protonix Iv) 40 mg IVPUSH Q12H COUNT INCLUDES THE [facility] Last Admin: 05/20/18 02:27 Dose: 40 mg Pyridoxine HCl (Vitamin B6-Pyridoxine) 25 mg PO DAILY COUNT INCLUDES THE [facility] Last Admin: 05/20/18 08:01 Dose: 25 mg Sodium Chloride (Saline Flush) 10 ml FLUSH ASDIRECTED PRN PRN Reason: Keep Vein Open Last Admin: 05/19/18 14:52 Dose: 10 ml Sodium Chloride (Saline Flush) 10 ml FLUSH Q12HR COUNT INCLUDES THE [facility] Last Admin: 05/20/18 08:04 Dose: Not Given Temazepam (Restoril) 15 mg PO DAILY@2000 PRN PRN Reason: Insomnia Last Admin: 05/19/18 20:47 Dose: 15 mg Tramadol HCl (Ultram) 50 mg PO Q6H PRN PRN Reason: Pain (moderate 4-6) Last Admin: 05/20/18 02:35 Dose: 50 mg Discontinued Medications Famotidine (Pepcid) 40 mg IVPUSH ONETIME ONE Stop: 05/18/18 13:40 Last Admin: 05/18/18 14:39 Dose: 40 mg Famotidine (Pepcid) 20 mg IVPUSH Q12H COUNT INCLUDES THE [facility] Lactated Ringer's (Ringers, Lactated) 1,000 mls @ 999 mls/hr IV .BOLUS ONE Stop: 05/18/18 14:39 Last Admin: 05/18/18 14:40 Dose: 999 mls/hr Metronidazole 500 mg/ Premix 100 mls @ 100 mls/hr IV Q8H COUNT INCLUDES THE [facility] Last Admin: 05/19/18 05:13 Dose: 100 mls/hr Ceftriaxone Sodium 1 gm/ (Sodium Chloride) 100 mls @ 200 mls/hr IV Q12H COUNT INCLUDES THE [facility] Iopamidol (Isovue-300 (61%)) 100 ml IVPUSH ONETIME ONE Stop: 05/19/18 08:49 Last Admin: 05/19/18 10:16 Dose: 100 ml Loperamide HCl (Imodium Ad) 4 mg PO ONETIME ONE Stop: 05/19/18 14:44 Last Admin: 05/19/18 14:53 Dose: 4 mg Ondansetron HCl (Zofran) 4 mg IVPUSH ONETIME ONE Stop: 05/18/18 13:40 Last Admin: 05/18/18 14:40 Dose: 4 mg Pantoprazole Sodium (Protonix Iv) 40 mg IVPUSH ONETIME ONE Stop: 05/18/18 13:40 Last Admin: 05/18/18 14:40 Dose: 40 mg Pantoprazole Sodium (Protonix Iv) 40 mg IVPUSH Q12H COUNT INCLUDES THE [facility] - Exam Quality Assessment: DVT Prophylaxis. No: Supplemental Oxygen, Central Line/PICC , Urine Catheter, Skin Breakdown, Restraints General: Alert, Oriented, Cooperative, No Acute Distress HEENT: Pupils Equal, Pupils Reactive, EOMI, Mucous Membr. Moist/[place] Neck: Supple, Trachea Midline, No JVD, No Thyromegaly. No: Lymphadenopathy Lungs: Clear to Auscultation, Normal Respiratory Effort. No: Rub Cardiovascular: Regular Rate, Regular Rhythm, No Murmurs. No: Gallops, Rubs GI/Abdominal Exam: Normal Bowel Sounds, No Organomegaly, No Distention, No Abnormal Bruit, No Mass, Rebound (Borderline rebound much improved from yesterday), Tender (Credit Director moderate left lower quadrant palpation pain). No : Guarding (Female) Exam: Deferred Back Exam: Normal Inspection, Full Range of Motion. No: CVA Tenderness (L), CVA Tenderness (R), Muscle Spasm Extremities: Normal Inspection, Normal Range of Motion, Non-Tender, No Pedal Edema, Normal Capillary Refill Peripheral Pulses: 2+: Radial (L), Radial (R), Dorsalis Pedis (L), Dorsalis Pedis (R) Skin: Warm, Dry, Intact. No: Ecchymosis Psy/Mental Status: Alert, Normal Affect, Normal Mood. No: Agitated, Hallucinations, Withdrawal Symptoms - Problem List & Annotations (1) Diverticulitis SNOMED Code(s): 404066324 Code(s): K57.92 - DVTRCLI OF INTEST, PART UNSP, W/O PERF OR ABSCESS W/O BLEED Status: Acute Priority: High Current Visit: Yes Onset Date: ~05/03 Annotation/Comment:: WBCs continue to remain normal despite change of IV Flagyl to oral regimen for her suspected C. difficile colitis, although stool cultures are still pending as above.. IV Rocephin will be discontinued. Surgical consultation report from yesterday was reviewed. Note CT scan of the abdomen and pelvis results as above. The patient does not have any insurance with various treatment options for probable C. difficile colitis discussed. Continue oral Flagyl regimen for now with additional 2 week regimen after hospital discharge. Follow-up C. difficile toxin specimen should be collected after completion of the above therapy. The patient's sister will be provided information concerning thorough disinfection of the patient's home with bleach, including clothing, bed sheets, bathroom, and all surfaces of the home including doorknobs, etc.. This disinfection should also be repeated after completion of the Flagyl regimen as above. Probiotic intestinal support was initiated today with this to be continued until C. difficile infection has been successfully completely treated. If follow-up C. difficile toxin remains positive consideration should be given to oral vancomycin in compounded form through [facility] pharmacy, which would run about $50$80 per day for the 4 times a day regimen. Oral Dificid therapy is cost prohibitive with cost of about $5000. Follow-up colonoscopy recommended about 4 weeks after successful completion of her current infection as above. Dr. Almeida assumes care of the patient tomorrow with possible discharge to home. Borderline peritonitis today, however significantly improved from yesterday. Note that patient did complete her Cipro and Flagyl on 05/11/18 with refractory symptoms for previously known diverticulitis as per emergency room note. Note Hemoccult- positive stools on admission with iron studies to be conducted tomorrow. High- dose IV Flagyl and IV Rocephin were started in the emergency room with patient also started on a 1 L IV bolus of lactated Ringer's secondary to borderline sepsis criteria, although note normal lactic acid levels during this hospitalization. Continue Abdominal assessments with vitals. Her HCM is also somewhat behind schedule with update of her mammogram, etc. also advisable. Continue IV fluids. Telemetry to be discontinued today with previous borderline sepsis criteria. Blood cultures 2 are negative to this point. (2) COPD (chronic obstructive pulmonary disease) SNOMED Code(s): 72327873 Code(s): J44.9 - CHRONIC OBSTRUCTIVE PULMONARY DISEASE, UNSPECIFIED Status : Chronic Priority: Medium Current Visit: Yes Qualifiers: COPD type: emphysema Emphysema type: panlobular Qualified Code(s): J43.1 - Panlobular emphysema Annotation/Comment:: No recent fever or bronchitic type symptoms. Note history of sarcoidosis as above with no current medical therapy required. PFTs should be conducted on an outpatient basis. Smoking cessation HERRERA as below. (3) Hypertension SNOMED Code(s): 11247544 Code(s): I10 - ESSENTIAL (PRIMARY) HYPERTENSION Status: Chronic Priority : Medium Current Visit: Yes Qualifiers: Hypertension type: essential hypertension Qualified Code(s): I10 - Essential (primary) hypertension Annotation/Comment:: Blood pressures under good control. No current medical therapy required. Continue to observe blood pressures closely secondary to her borderline sepsis criteria. Blood Pressures variable during this hospitalization with no significant hypotension for now. (4) Mixed anxiety depressive disorder SNOMED Code(s): 841092770 Code(s): F41.8 - OTHER SPECIFIED ANXIETY DISORDERS Status: Chronic Priority: Medium Current Visit: Yes Annotation/Comment:: Stable by history. Moderate control on admission, however improved at this time. Note nonspecific headache resolved this morning. The patient did receive IV fentanyl on 05/18 with additional when necessary Ultram use for control of her abdominal pain. Continue to observe closely with no change in medical therapy for now. (5) Osteoarthritis SNOMED Code(s): 866729044 Code(s): M19.90 - UNSPECIFIED OSTEOARTHRITIS, UNSPECIFIED SITE Status: Chronic Priority: Medium Current Visit: Yes Qualifiers: Osteoarthritis location: multiple joints Osteoarthritis type: primary Qualified Code(s): M15.0 - Primary generalized (osteo)arthritis Annotation/Comment:: Stable by history (6) Peptic reflux disease SNOMED Code(s): 936584403 Code(s): K21.9 - GASTRO-ESOPHAGEAL REFLUX DISEASE WITHOUT ESOPHAGITIS Status: Chronic Priority: Medium Current Visit: Yes Annotation/Comment:: Stable by history. High-dose IV Protonix and IV Pepcid started in the emergency room and continued during this hospitalization. (7) Sarcoidosis SNOMED Code(s): 76608725 Code(s): D86.9 - SARCOIDOSIS, UNSPECIFIED Status: Chronic Priority: Medium Current Visit: Yes Annotation/Comment:: As above (8) Tobacco abuse counseling SNOMED Code(s): 270053205, 963991038, 953534617 Code(s): Z71.6 - TOBACCO ABUSE COUNSELING Status: Chronic Priority: Medium Current Visit: Yes Annotation/Comment:: Tobacco cessation information to be provided at discharge. She does not want a nicotine patch during this hospitalization. (9) Hypoalbuminemia SNOMED Code(s): 079354754 Code(s): E88.09 - OTH DISORDERS OF PLASMA-PROTEIN METABOLISM, NEC Status: Acute Priority: Medium Current Visit: Yes Onset Date: 05/18/18 Annotation/Comment:: Initiated high-protein Glucerna supplements as snacks on 05/19 with this to be continued at discharge. Close follow-up by regular provider. (10) UTI (urinary tract infection) SNOMED Code(s): 94347101 Code(s): N39.0 - URINARY TRACT INFECTION, SITE NOT SPECIFIED Status: Acute Priority: Medium Current Visit: Yes Onset Date: 05/19/18 Qualifiers: Urinary tract infection type: acute cystitis Hematuria presence: without hematuria Qualified Code(s): N30.00 - Acute cystitis without hematuria Annotation/Comment:: Borderline UTI by yesterday's UA. Urine culture and sensitivity pending. Continue antibiotic therapy as above. Additional antibiotic therapy with caution secondary to current C. difficile colitis with IV Rocephin given during this hospitalization. (11) Hypokalemia SNOMED Code(s): 99883950 Code(s): E87.6 - HYPOKALEMIA Status: Acute Priority: High Current Visit : Yes Onset Date: 05/20/18 Annotation/Comment:: Hypokalemia secondary to her diarrhea. Imodium started yesterday with improved diarrhea and only 3 stools yesterday evening. Initiate potassium chloride oral supplement. Close follow-up by regular providers. Blood work to be repeated in the a.m. (12) Hypomagnesemia SNOMED Code(s): 048174483 Code(s): E83.42 - HYPOMAGNESEMIA Status: Acute Priority: Medium Current Visit: Yes Onset Date: ~05/20/18 Annotation/Comment:: Persistent decreased magnesium levels today. IV magnesium supplementation secondary to her current diarrhea. Repeat magnesium level in the a.m. with close follow-up by her regular provider. - Problem List Review Problem List Initiated/Reviewed/Updated: Yes - My Orders Last 24 Hours: My Active Orders 05/19/18 08:00 Cyanocobalamin (Vitamin B12) [Vitamin B12] 1,000 mcg PO DAILY Vitamin B6-pyridOXINE 25 mg PO DAILY 05/19/18 08:44 Abdomen Pelvis w Cont [CT] Urgent 05/19/18 09:08 Communication Order [RC] ROUTINE 05/19/18 13:30 metroNIDAZOLE [Flagyl] 500 mg PO Q8H 05/19/18 14:43 Loperamide [Imodium AD] 2 mg PO Q4H PRN 05/19/18 15:30 Famotidine [Pepcid] 20 mg IVPUSH Q12H - Assessment Assessment:: As above - Plan Plan:: As above. Extensive precautions were given to the patient, who is in agreement with the treatment plan. Anticipate an additional 1-2 days of inpatient/acute care.
[2018-05-20] MEDS ORDERED: Magnesium Sulfate/Water 4 GM in Premix Bag 1 BAG IV ONE (09:31)
[2018-05-20] MEDS: Lactobacillus Rhamnosus GG (Probiotic) Cap PO SCH ×3 (10:16→17:49)
[2018-05-20] MEDS: Potassium Chloride 20 MEQ Tab.ER PO SCH ×2 (10:17→17:50)
[2018-05-20] MEDS: Lactated Ringers 1,000 ML IV SCH ×2 (11:11→21:54)
[2018-05-20] MEDS: fentaNYL 100 MCG/2 ML SDV IVPUSH PRN (15:48)
[2018-05-20] MEDS: Sodium Chloride 0.9% 10 ML Syringe FLUSH PRN (15:50)
[2018-05-20] MEDS: Ondansetron 4 MG/2 ML SDV IVPUSH PRN (15:51)
[2018-05-21] MEDS: Pantoprazole 40 MG Vial IVPUSH SCH (02:25)
[2018-05-21] MEDS: Sodium Chloride 0.9% 10 ML Syringe FLUSH PRN ×2 (02:25→02:30)
[2018-05-21] MEDS: Famotidine 20 MG/2 ML SDV IVPUSH SCH (02:29)
[2018-05-21] MEDS: metroNIDAZOLE 500 MG Tab PO SCH (05:53)
[2018-05-21] MEDS: Cyanocobalamin (Vitamin B12) 1,000 MCG Tab PO SCH (07:45)
[2018-05-21] MEDS: Vitamin B6-pyridOXINE 100 MG Tab PO SCH (07:45)
[2018-05-21] MEDS: Potassium Chloride 20 MEQ Tab.ER PO SCH (07:45)
[2018-05-21] MEDS: Lactobacillus Rhamnosus GG (Probiotic) Cap PO SCH (07:45)
[2018-05-21] MEDS: Sodium Chloride 0.9% 10 ML Syringe FLUSH SCH (07:46)
[2018-05-21 08:04] LABS: CHLORIDE,CL 108 mmol/L (98-107); SODIUM,NA 144 mmol/L (136-145)
--- NOTE | 2018-05-21 11:06 | PCM.DCSUM1 ---
Discharge Summary - Hospital Course Free Text/Narrative:: Patient is a 63-year-old who was admitted with abdominal pain, dehydration and diarrhea. Was diagnosed with C. difficile and started on Flagyl doing better would like to go home today. Patient will be sent home on 8 days of Flagyl 500 3 times a day for 8days Modified Ita Scale: No Signif.Disability Despite Sympt.Able to Carry Out Usual Act./Duties Modified Ita Scale Score: 1 - Discharge Data Discharge Date: 05/21/18 Discharge Disposition: Home, Self-Care 01 Condition: Good - Patient Summary/Data Consults: Consultations 05/19/18 05:11 Consult to Physician [CONS] Routine - Patient Instructions Diet: Usual Diet as Tolerated Activity: As Tolerated Driving: May Drive Today Showering/Bathing: May Shower Notify Provider of: Fever, Nausea and/or Vomiting Other/Special Instructions: Follow-up with M.D. of choice is diarrhea continue - Discharge Plan Home Medications: Home Meds Aspirin [Ecotrin] 81 mg PO DAILY 03/28/18 [History] Cyanocobalamin (Vitamin B12) [Vitamin B12] 1,000 mg PO DAILY 03/28/18 [History] Ibuprofen 200 mg PO Q6HR PRN 03/28/18 [History] Pyridoxine HCl [Vitamin B-6] 1 tab PO DAILY 03/28/18 [History] Patient Handouts: Ondansetron injection, Ceftriaxone injection, Pantoprazole injection, Diverticulitis, Famotidine injection, Metronidazole injection Forms: ED Department Discharge Referrals: PCP,None [Primary Care Provider] - - Discharge Summary/Plan Comment DC Time >30 min.: No - General Info Date of Service: 05/21/18 Admission Dx/Problem (Free Text: Diarrhea abdominal pain dehydration Functional Status: Reports: Tolerating Diet, Ambulating - Review of Systems General: Reports: Weakness HEENT: Reports: No Symptoms Pulmonary: Reports: No Symptoms Cardiovascular: Reports: No Symptoms Gastrointestinal: Reports: Diarrhea (Improving) Genitourinary: Reports: No Symptoms Musculoskeletal: Reports: No Symptoms Skin: Reports: No Symptoms Neurological: Reports: No Symptoms Psychiatric: Reports: No Symptoms - Patient Data Vitals - Most Recent: Last Vital Signs Temp 98.1 F 05/21/18 06:00 Pulse 65 05/21/18 06:00 Resp 16 05/21/18 06:00 BP 152/93 H 05/21/18 06:00 Pulse Ox 95 05/21/18 06:00 Weight - Most Recent: 146 lb 12.8 oz I&O - Last 24 hours: Intake & Output 05/20/18 05/21/18 05/21/18 22:59 06:59 14:59 Intake Total 240 2614 300 Output Total 700 600 Balance -460 2013 300 Lab Results - Last 24 hrs: Laboratory Results - last 24 hr 05/21/18 05/21/18 05/21/18 Range/Units 07:40 07:40 07:40 WBC 5.7 (4.0-10.2) K/uL RBC 4.24 (3.77-5.09) M/uL Hgb 13.4 (11.7-15.5) g/dL Hct 39.9 (34.0-46.0) % MCV 94.1 (84.0-98.0) fL MCH 31.6 (28.2-33.3) pg MCHC 33.6 (31.7-36.0) g/dL RDW 13.0 (11.2-14.1) % Plt Count 211 (150-350) K/uL Neut % (Auto) 54.7 (45.0-80.0) % Lymph % (Auto) 26.1 (10.0-50.0) % [place] % (Auto) 12.7 (2.0-14.0) % Eos % (Auto) 6.3 H (0.0-5.0) % Baso % (Auto) 0.2 (0.0-2.0) % Neut # (Auto) 3.10 (1.40-7.00) K/uL Lymph # (Auto) 1.48 (0.50-3.50) K/uL [place] # (Auto) 0.72 (0.00-1.00) K/uL Eos # (Auto) 0.36 (0.00-0.50) K/uL Baso # (Auto) 0.01 (0.00-0.20) K/uL Sodium 144 (136-145) mmol/L Potassium 3.7 (3.5-5.1) mmol/L Chloride 108 H (98-107) mmol/L Carbon Dioxide 28.0 (21.0-32.0) mmol/L BUN 5 L (7-18) mg/dL Creatinine 0.72 (0.51-1.17) mg/dL Est Cr Clr Drug Dosing 73.90 mL/min Estimated GFR (MDRD) > 60 mL/min Glucose 104 (74-106) mg/dL Calcium 8.3 L (8.5-10.1) mg/dL Magnesium 1.6 L (1.8-2.4) mg/dL Iron 78 (50-175) ug/dL TIBC 195 L (250-450) ug/dL % Saturation [id number] AARON Results - Last 24 hrs: Microbiology 05/18/18 16:05 Stool Aerobic Culture - Preliminary Stool / Feces 05/18/18 14:07 Aerobic Blood Culture - Preliminary Blood - Venous - Lab Draw NO GROWTH AFTER 2 DAYS Anaerobic Blood Culture - Preliminary NO GROWTH AFTER 2 DAYS 05/18/18 13:50 Aerobic Blood Culture - Preliminary Blood - Venous NO GROWTH AFTER 2 DAYS Anaerobic Blood Culture - Preliminary NO GROWTH AFTER 2 DAYS 05/18/18 15:32 Clostridium difficile (PCR) - Final Stool / Feces 05/18/18 14:10 Helicobacter pylori Antigen - Final Stool / Feces 05/18/18 18:50 Urine Culture - Final Urine, Clean Catch MIXED POSITIVE DIANA DAY 2 Med Orders - Current: Current Medications Acetaminophen (Tylenol) 650 mg PO Q4H PRN PRN Reason: Pain Last Admin: 05/20/18 08:04 Dose: 650 mg Cyanocobalamin (Vitamin B12) 1,000 mcg PO DAILY [facility] Last Admin: 05/21/18 07:45 Dose: 1,000 mcg Famotidine (Pepcid) 20 mg IVPUSH Q12H [facility] Last Admin: 05/21/18 02:29 Dose: 20 mg Fentanyl (Sublimaze) 50 mcg IVPUSH Q4H PRN PRN Reason: Pain (severe 7-10) Last Admin: 05/20/18 15:48 Dose: 50 mcg Lactated Ringer's (Ringers, Lactated) 1,000 mls @ 100 mls/hr IV ASDIRECTED [facility] Last Admin: 05/20/18 21:54 Dose: 100 mls/hr Lactobacillus Rhamnosus (Culturelle) 2 cap PO TID [facility] Last Admin: 05/21/18 07:45 Dose: 2 cap Metronidazole (Flagyl) 500 mg PO Q8H [facility] Last Admin: 05/21/18 05:53 Dose: 500 mg Ondansetron HCl (Zofran) 4 mg IVPUSH Q6H PRN PRN Reason: Nausea/Vomiting Last Admin: 05/20/18 15:51 Dose: 4 mg Pantoprazole Sodium (Protonix Iv) 40 mg IVPUSH Q12H [facility] Last Admin: 05/21/18 02:25 Dose: 40 mg Potassium Chloride (Klor-Con M20) 20 meq PO BID [facility] Last Admin: 05/21/18 07:45 Dose: 20 meq Pyridoxine HCl (Vitamin B6-Pyridoxine) 25 mg PO DAILY [facility] Last Admin: 05/21/18 07:45 Dose: 25 mg Sodium Chloride (Saline Flush) 10 ml FLUSH ASDIRECTED PRN PRN Reason: Keep Vein Open Last Admin: 05/21/18 02:30 Dose: 10 ml Sodium Chloride (Saline Flush) 10 ml FLUSH Q12HR [facility] Last Admin: 05/21/18 07:46 Dose: Not Given Temazepam (Restoril) 15 mg PO DAILY@2000 PRN PRN Reason: Insomnia Last Admin: 05/19/18 20:47 Dose: 15 mg Tramadol HCl (Ultram) 50 mg PO Q6H PRN PRN Reason: Pain (moderate 4-6) Last Admin: 05/20/18 13:21 Dose: 50 mg Discontinued Medications Famotidine (Pepcid) 40 mg IVPUSH ONETIME ONE Stop: 05/18/18 13:40 Last Admin: 05/18/18 14:39 Dose: 40 mg Famotidine (Pepcid) 20 mg IVPUSH Q12H [facility] Ceftriaxone Sodium 1 gm/ (Sodium Chloride) 100 mls @ 200 mls/hr IV Q12H [facility] Last Admin: 05/20/18 02:27 Dose: 200 mls/hr Lactated Ringer's (Ringers, Lactated) 1,000 mls @ 999 mls/hr IV .BOLUS ONE Stop: 05/18/18 14:39 Last Admin: 05/18/18 14:40 Dose: 999 mls/hr Metronidazole 500 mg/ Premix 100 mls @ 100 mls/hr IV Q8H [facility] Last Admin: 05/19/18 05:13 Dose: 100 mls/hr Ceftriaxone Sodium 1 gm/ (Sodium Chloride) 100 mls @ 200 mls/hr IV Q12H [facility] Magnesium Sulfate 4 gm/ Premix 100 mls @ 200 mls/hr IV ONETIME ONE Stop: 05/20/18 10:00 Last Admin: 05/20/18 10:18 Dose: 200 mls/hr Iopamidol (Isovue-300 (61%)) 100 ml IVPUSH ONETIME ONE Stop: 05/19/18 08:49 Last Admin: 05/19/18 10:16 Dose: 100 ml Loperamide HCl (Imodium Ad) 4 mg PO ONETIME ONE Stop: 05/19/18 14:44 Last Admin: 05/19/18 14:53 Dose: 4 mg Loperamide HCl (Imodium Ad) 2 mg PO Q4H PRN PRN Reason: Diarrhea Stop: 05/21/18 08:00 Last Admin: 05/20/18 08:12 Dose: 2 mg Ondansetron HCl (Zofran) 4 mg IVPUSH ONETIME ONE Stop: 05/18/18 13:40 Last Admin: 05/18/18 14:40 Dose: 4 mg Pantoprazole Sodium (Protonix Iv) 40 mg IVPUSH ONETIME ONE Stop: 05/18/18 13:40 Last Admin: 05/18/18 14:40 Dose: 40 mg Pantoprazole Sodium (Protonix Iv) 40 mg IVPUSH Q12H [facility] - Exam General: Reports: Alert, Oriented HEENT: Reports: Pupils Equal, Pupils Reactive, EOMI, Mucous Membr. Moist/[place] Neck: Reports: Supple Lungs: Reports: Clear to Auscultation, Normal Respiratory Effort Cardiovascular: Reports: Regular Rate, Regular Rhythm GI/Abdominal Exam: Normal Bowel Sounds, Other (Female) Exam: Deferred Rectal (Female) Exam: Deferred Back Exam: Reports: Normal Inspection, Full Range of Motion Extremities: Normal Inspection, Normal Range of Motion, Non-Tender, No Pedal Edema, Normal Capillary Refill Skin: Reports: Warm Neurological: Reports: No New Focal Deficit Psy/Mental Status: Reports: Alert
== END 2018-05-21 11:27 | disposition home or self-care (01) | DRG 372 ==
LOC: LL.ED 13:28 → LL.MS 15:00
PROVIDERS: ADMIT Family Medicine; ATTEND Family Medicine
DX: K57.92 Diverticulitis of intestine, part unspecified, without perforation or abscess without bleeding (principal); A04.72 Enterocolitis due to Clostridium difficile, not specified as recurrent; K57.32 Diverticulitis of large intestine without perforation or abscess without bleeding; K57.90 Diverticulosis of intestine, part unspecified, without perforation or abscess without bleeding; N30.00 Acute cystitis without hematuria; I10 Essential (primary) hypertension; J44.9 Chronic obstructive pulmonary disease, unspecified; E86.0 Dehydration; E87.6 Hypokalemia; E83.42 Hypomagnesemia; K21.9 Gastro-esophageal reflux disease without esophagitis; G89.29 Other chronic pain; M54.9 Dorsalgia, unspecified; D86.1 Sarcoidosis of lymph nodes; H54.7 Unspecified visual loss; M41.9 Scoliosis, unspecified; G43.909 Migraine, unspecified, not intractable, without status migrainosus; F43.10 Post-traumatic stress disorder, unspecified; F17.210 Nicotine dependence, cigarettes, uncomplicated; F41.8 Other specified anxiety disorders; R10.32 Left lower quadrant pain; R31.9 Hematuria, unspecified; R51 Headache; R11.2 Nausea with vomiting, unspecified; M15.9 Polyosteoarthritis, unspecified; E88.09 Other disorders of plasma-protein metabolism, not elsewhere classified; Z88.2 Allergy status to sulfonamides; Z78.0 Asymptomatic menopausal state; Z79.82 Long term (current) use of aspirin; Z79.899 Other long term (current) drug therapy
CPT/HCPCS: 36415; 74022; 80053; 82150; 82272; 83605; 83690; 83735; 84550; 85025; 85610; 85730; 87040 ×2; 87338; 96365; 96375; 99285; C9113; J0696; J2405; J7050 ×2; J7120; 74177; 80048; 81001; 83036; 83540; 83550; 87045; 87046; 87086; 87493; A9270-GY; J3010; J3475; Q9967; S0028

== ENCOUNTER → 2019-09-07 | Outpatient (CLI) | payer MEDICARE, OTHER | LOC: LL.CLIN 15:05 | PROVIDERS: ATTEND Nurse Practitioner | DX: R10.32 Left lower quadrant pain (principal); F17.200 Nicotine dependence, unspecified, uncomplicated | CPT/HCPCS: 99213 ==

== ENCOUNTER 2019-10-23 01:15 | Emergency (ER) | payer MEDICARE, OTHER ==
[2019-10-23] MEDS ORDERED: Tenecteplase 50 MG Kit ONE ×2 (01:38→02:00)
[2019-10-23] MEDS ORDERED: Ticagrelor 90 MG Tab PO ONE (01:38)
[2019-10-23] MEDS ORDERED: Ondansetron 4 MG/2 ML SDV ONE (01:38)
[2019-10-23] MEDS ORDERED: Clopidogrel 75 MG Tab ONE (01:38)
[2019-10-23] MEDS ORDERED: Heparin Sodium 5,000 Units/ML Vial ONE (01:38)
[2019-10-23] MEDS ORDERED: Nitroglycerin 0.4 MG Tab.SL ONE ×2 (01:38)
[2019-10-23] MEDS ORDERED: Morphine 2 MG/ML Syringe ONE (01:38)
[2019-10-23] MEDS ORDERED: Sodium Chloride 0.9% 1,000 ML IV ONE (01:52)
[2019-10-23] MEDS ORDERED: Tenecteplase 50 MG Kit IV ONE (02:00)
[2019-10-23] MEDS ORDERED: Sodium Chloride 0.9% 10 ML Syringe FLUSH PRN (02:03)
[2019-10-23] MEDS ORDERED: Clopidogrel 75 MG Tab PO ONE (02:06)
[2019-10-23] MEDS ORDERED: Heparin Sodium 5,000 Units/ML Vial IVPUSH ONE (02:07)
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
[2019-10-23 02:27] LABS: CHLORIDE,CL 105 mmol/L (98-107); SODIUM,NA 143 mmol/L (136-145)
[2019-10-23] MEDS ORDERED: Heparin Sodium/D5W 25,000 UNITS/500 ML BAG IV SCH (02:30)
--- OUTSIDE RECORDS SUMMARY | 2019-10-26 11:35 | XMSREPORT ---
:1955 Author Organization [facility] Address [address] [place] [address] Care Team Providers Name Role Phone Provider, No Attributed RESOURCE Attributed Provider Unavailable Neda Kuhn APRN-STUDENT WORKER Primary Care Provider Reason for Visit Auth/Cert Status Reason Specialty Diagnoses / Procedures Referred By Contact Referred To Contact Encounter Details Date Type Department Care Team Description 10/23/2019 - Hospital Encounter [facility] Provider, Generic Hosp Procedure STEMI (ST elevation 10/25/2019 CENTER 6CD [facility] Eric Harvey MD [address] [place] [address] [phone] myocardial 5225 23 Rosetta Montoya, DO [address] [place] [id number] infarction) ([facility] [place] [address] Allergies Active Allergy Reactions Severity Noted Date Comments Sulfa Drugs Unknown/Not Verified 10/23/2019 documented as of this encounter (statuses as of 10/25/2019) Medications Medication Sig Dispensed Refills Start Date End Date Status pyridoxine (VITAMIN Take 100 mg by 0 Active B-6) 100 MG tablet mouth 1 time per day cyanocobalamin Take 500 mcg by 0 Active (VITAMIN B-12) 500 mouth 1 time per mcg tablet day VITAMIN A PO Take 1 capsule 0 Active by mouth 1 time per day calcium carbonate Take 1,000 mg by 0 Active (TUMS) 500 MG mouth 4 times a chewable tablet day as needed for heartburn aspirin 81 mg Take 1 tablet 90 tablet 4 10/26/2019 Active chewable (81 mg) by mouth tabletIndications: ST 1 time per day elevation myocardial infarction (STEMI), unspecified artery (HCC) atorvaSTATin calcium Take 1 tablet 90 tablet 4 10/25/2019 10/29/2020 Active (LIPITOR) 80 mg (80 mg) by mouth tabletIndications: ST every night at elevation myocardial bedtime infarction (STEMI), unspecified artery (HCC) carVEDilol (COREG) Take 1 tablet 180 tablet 4 10/25/2019 10/29/2020 Active 3.125 mg (3.125 mg) by tabletIndications: ST mouth 2 times a elevation myocardial day after meals infarction (STEMI), unspecified artery (HCC) colchicine 0.6 mg Take 1 tablet 30 tablet 0 10/26/2019 11/25/2019 Active TABS (0.6 mg) by tabletIndications: ST mouth 1 time per elevation myocardial day infarction (STEMI), unspecified artery (HCC) ramipril (ALTACE) 5 Take 1 capsule 90 capsule 4 10/25/2019 10/29/2020 Active mg (5 mg) by mouth capsuleIndications: 1 time a day in ST elevation the evening myocardial infarction (STEMI), unspecified artery (HCC) ticagrelor (BRILINTA) Take 1 tablet 60 tablet 11 10/25/2019 Active 90 mg (90 mg) by mouth tabletIndications: ST 2 times a day elevation myocardial infarction (STEMI), unspecified artery (HCC) furosemide (LASIX) 40 Take 1 tablet 30 tablet 0 10/25/2019 10/29/2020 Active mg tabletIndications: (40 mg) by mouth ST elevation 1 time per day myocardial infarction (STEMI), unspecified artery (HCC) nicotine (NICODERM) Apply 1 patch 30 patch 1 10/26/2019 11/25/2019 Active 21 mg/24hr (21 mg) to the [id number]: ST skin 1 time per elevation myocardial day infarction (STEMI), unspecified artery (HCC) documented as of this encounter (statuses as of 10/25/2019) Active Problems Problem Noted Date Ischemic cardiomyopathy 10/24/2019 Tobacco use 10/24/2019 STEMI (ST elevation myocardial infarction) 10/23/2019 documented as of this encounter (statuses as of 10/25/2019) Social History Tobacco Use Types Packs/Day Years Used Date Current Every Day Smoker Cigarettes 0.5 Smokeless Tobacco: Never Used Tobacco Cessation: Ready to Quit: Yes; Counseling Given: Yes Alcohol Use Drinks/Week oz/Week Comments Yes Alcohol Habits Answer Date Recorded How often do you have a drink containing alcohol? 2-4 times a month 2018 How many drinks containing alcohol do you have on a 1 or 2 10/23/2019 typical day when you are drinking? How often do you have six or more drinks on one Never 10/23/2019 occasion? Sexually Active Control Partners Comments Not Currently Sex Assigned at Date Recorded Not on file Job Start Date Occupation Industry Not on file Not on file Not on file Travel History Travel Start Travel End No recent travel history available. documented as of this encounter Last Filed Vital Signs Vital Sign Reading Time Taken Comments Blood Pressure 127/78 10/25/2019 11:45 AM CEREAL MAKER Pulse 74 10/25/2019 11:45 AM CEREAL MAKER Temperature 37.1 C (98.7 F) 10/25/2019 11:45 AM CEREAL MAKER Respiratory Rate 16 10/25/2019 11:45 AM CEREAL MAKER Oxygen Saturation 99% 10/25/2019 11:45 AM CEREAL MAKER Inhaled Oxygen Concentration - - Weight 71.8 kg (158 lb 4.6 oz) 10/23/2019 6:00 AM CEREAL MAKER Height 162.6 cm (5' 4") 10/23/2019 6:00 AM CEREAL MAKER Body Mass Index 27.17 10/23/2019 6:00 AM CEREAL MAKER documented in this encounter Functional Status Functional Status Response Date of Assessment Is the person deaf or does he/she have serious difficulty No 10/23/2019 hearing? Is this person blind or does he/she have difficulty No 10/23/2019 seeing even when wearing glasses? Do you have difficulty with walking, balance, climbing No 10/23/2019 stairs, or had a fall in the last 3 months? Does the patient have difficulty dressing or bathing? No 10/23/2019 Because of a physical, mental, or emotional condition; No 10/23/2019 does this person have difficulty doing errands alone such as visiting a doctor's office or shopping? Cognitive Status Response Date of Assessment Because of a physical, mental, or emotional condition; No 10/23/2019 does this person have serious difficulty concentrating, remembering, or making decisions? documented as of this encounter Discharge Summaries Jenna Gannon PA-C - 10/25/2019 9:53 AM CST Cardiology Discharge Summary Discharging Physician: Dr. Yoshi Wood Admit Date: 10/23/2019 Discharge Date: 10/25/2019 Primary Care Physician: Neda Kuhn, LAUNCH STEWARD-STUDENT WORKER Discharge Diagnoses Patient Active Problem List Diagnosis STEMI (ST elevation myocardial infarction) (HCC) Ischemic cardiomyopathy Tobacco use Hospital Course Nithya Lewsi is a 64yr old female who was admitted for STEMI. After experiencing significant chest pain off and on she went to her local ER to be evaluated, it had progressively gotten worse. Her initial EKG showed ST elevation in the anterior leads, she was transferred to [place] for further management. She underwent an angiogram and received stenting to her first diagonal. She has residual disease (50%) in her RCA. Her EF was thought to be about 40% during her angiogram, she was started on Brilinta and transferred to the floor. She had post-operative chest pain, she was treated with colchicine as well as one dose of Tordal anddid have relief. Today she denies any significant chest pain. Her troponins have started to come down. Should follow up with cardiology in 4-6 weeks. She was started on GDMT as well as furosemide (LASIX) due to her decreased EF. She should continue colchicine for 1 month. Patient is stable for discharge. Discussed the importance of continuing DAP; she should continue ASA indefinitely and Brilinta for atleast 1 year. Missing of doses could lead to possible stent closure. Patient is agreeable with continuing medications. We also discussed the importance of routine exercise, heart healthy diet, maintaining adequate BP/blood sugars and limiting/avoiding substances such as alcohol and tobacco. Preliminary Discharge Medications This list of medications is preliminary and tentative. Please see the After Visit Summary for the final and accurate medication list. Discharge Medication List START taking these medications START: aspirin 81 mg chewable tablet Dose: 81 mg Take 1 tablet (81 mg) by mouth 1 time per day Start taking on: 10/26/2019 START: atorvaSTATin calcium 80 mg tablet Commonly known as: LIPITOR Dose: 80 mg Take 1 tablet (80 mg) by mouth every night at bedtime START: carVEDilol 3.125 mg tablet Commonly known as: COREG Dose: 3.125 mg Take 1 tablet (3.125 mg) by mouth 2 times a day after meals START: colchicine 0.6 mg Tabs tablet Dose: 0.6 mg Take 1 tablet (0.6 mg) by mouth 1 time per day Start taking on: 10/26/2019 START: furosemide 40 mg tablet Commonly known as: LASIX Dose: 40 mg Take 1 tablet (40 mg) by mouth 1 time per day START: nicotine 21 mg/24hr Pt24 Commonly known as: NICODERM Dose: 1 patch Apply 1 patch (21 mg) to the skin 1 time per day Start taking on: 10/26/2019 START: ramipril 5 mg capsule Commonly known as: ALTACE Dose: 5 mg Take 1 capsule (5 mg) by mouth 1 time a day in the evening START: ticagrelor 90 mg tablet Commonly known as: BRILINTA Dose: 90 mg Take 1 tablet (90 mg) by mouth 2 times a day CONTINUE taking these medications which have NOT CHANGED CONTINUE: calcium carbonate 500 MG chewable tablet Commonly known as: TUMS Dose: 1,000 mg Take 1,000 mg by mouth 4 times a day as needed for heartburn CONTINUE: cyanocobalamin 500 mcg tablet Commonly known as: Vitamin B-12 Dose: 500 mcg Take 500 mcg by mouth 1 time per day CONTINUE: pyridoxine 100 MG tablet Commonly known as: vitamin B-6 Dose: 100 mg Take 100 mg by mouth 1 time per day CONTINUE: VITAMIN A PO Dose: 1 capsule Take 1 capsule by mouth 1 time per day You might also be taking other medications not listed above. If you have questions about any of your other medications, talk to the person who prescribed them or your Primary Care Provider. Where to Get Your Medications These medications were sent to [facility] [address] [place] [id number] Hours: M-F 8am-9pm, Sat-Sun 9am-9pm aspirin 81 mg chewable tablet atorvaSTATin calcium 80 mg tablet carVEDilol 3.125 mg tablet colchicine 0.6 mg Tabs tablet furosemide 40 mg tablet nicotine 21 mg/24hr Pt24 ramipril 5 mg capsule ticagrelor 90 mg tablet Procedures Performed and Findings * No surgery found * 10/23/2019: angiogram - Selective left coronary angiogram - Selective right coronary angiogram - Left heart cath - Left ventriculogram - Succesful PCI of proximal 1st Diagonal coronary artery with 2.75 by 22mm Resolute Aryan MARY LOU postdilated with 3.0 NC balloon - Application of radial compression device Consultations Obtained TOBACCO CESSATION REFERRAL HEART FAILURE REFERRAL Discharge Disposition ADULT Discharge Planning: Home (1, 2) Activity on Discharge Limit strenuous activity for 1 week Recommend cardiac rehab Discharge Instructions: Discharge Instructions Discharge Instructions Radial Cardiac Cath/Angioplasty Discharge Instructions ? Do not subject your hand/or arm to any forceful movements for 24 hours. This would include thingslike supporting your weight when rising from a chair or bed. ? For two days following discharge: o Do not operate a motor vehicle, tractor, lawnmower, motorcycle or all terrain vehicles. o Do not life anything heavier than one pound with affected arm. o Avoid a lot of wrist movement (extension/flexion). ? Avoid lifting heavy items with your affected arm for three days after your discharge. ? Do not take part in brisk exercise (i.e. Tennis) using your affected arm for five days after your discharge. ? If bleeding should occur while in the hospital, apply firm pressure to the site and call your nurse. ? If bleeding should occur after your discharge: o Sit down and apply firm pressure to site with your fingers for 10 minutes. o If the bleeding stops, continue to sit quietly, keeping your wrist straight for two hours. Call your doctor as soon as possible o If bleeding does not stop after 10 minutes or if there is a large amount of bleeding or spurting, call [address] yourself to the hospital. ? Remove band-aid 24 hours following application. ? You may shower on the day following your procedure. Do not take a tub bath for three days after your discharge. ? Expect mild tingling of hand and tenderness at the puncture site for up to three days. If this persists or other symptoms develop, please call your nurse or doctor. Heart Failure Discharge Instructions Diet: Low sodium (low salt) diet Fluid intake 2-3 liters daily unless otherwise advised Follow instructions from our dietitian if one visited you Activity: Plan time every day for walking or other activity. If you feel tired and short of breath, stop and rest. Continue activity when ready. Follow guidelines given by cardiac rehab and nursing staff. Treatments/Self Care: Weigh yourself daily at the same time of the day and with the same amount of clothing. Write down your weight every day and keep this record. Avoid NSAIDs or Non-Steroidal Anti-Inflammatory Drugs (ie: Advil, Ibuprofen, Motrin, etc.) Contact Your Doctor If You Have Any of These Symptoms: Sudden weight gain of 2 to 3 pounds in a day or 5 pounds in a week. This is a sign of fluid build-up. Swelling in feet , ankles, legs, or stomach area Shortness of breath or trouble breathing at rest Having to sleep with more pillows or sitting up Frequent or worsening cough A decrease in amount of urination Chest pain Confusion Questions about medications or other problems Review the Living Well with Heart Failure booklet for more information on caring for yourself or your loved one at home. Tests Pending at Discharge Follow-Up Scheduled PCP In 1-2 weeks Cardiology 4-6 weeks Cardiac rehab recommended documented in this encounter Discharge Instructions Heather Melgoza RN - 10/25/2019For any of the following symptoms of heart failure: Rapid weight gain of 2 or more pounds overnight or 5 pounds in a week Extreme fatigue or weakness Swelling of the legs, ankles, abdomen, and/or neck Rapid or irregular heartbeat Shortness of breath Please call the Heart Failure Program nurse navigator line at: [phone] during clinic hours Radial Cardiac Cath/Angioplasty Discharge Instructions ? Do not subject your hand/or arm to any forceful movements for 24 hours. This would include thingslike supporting your weight when rising from a chair or bed. ? For two days following discharge: o Do not operate a motor vehicle, tractor, lawnmower, motorcycle or all terrain vehicles. o Do not life anything heavier than one pound with affected arm. o Avoid a lot of wrist movement (extension/flexion). ? Avoid lifting heavy items with your affected arm for three days after your discharge. ? Do not take part in brisk exercise (i.e. Tennis) using your affected arm for five days after your discharge. ? If bleeding should occur while in the hospital, apply firm pressure to the site and call your nurse. ? If bleeding should occur after your discharge: o Sit down and apply firm pressure to site with your fingers for 10 minutes. o If the bleeding stops, continue to sit quietly, keeping your wrist straight for two hours. Call your doctor as soon as possible o If bleeding does not stop after 10 minutes or if there is a large amount of bleeding or spurting, call [address] not [address] yourself to the hospital. ? Remove band-aid 24 hours following application. ? You may shower on the day following your procedure. Do not take a tub bath for three days after your discharge. ? Expect mild tingling of hand and tenderness at the puncture site for up to three days. If this persists or other symptoms develop, please call your nurse or doctor. Radial Cardiac Cath/Angioplasty Discharge Instructions ? Do not subject your hand/or arm to any forceful movements for 24 hours. This would include thingslike supporting your weight when rising from a chair or bed. ? For two days following discharge: o Do not operate a motor vehicle, tractor, lawnmower, motorcycle or all terrain vehicles. o Do not life anything heavier than one pound with affected arm. o Avoid a lot of wrist movement (extension/flexion). ? Avoid lifting heavy items with your affected arm for three days after your discharge. ? Do not take part in brisk exercise (i.e. Tennis) using your affected arm for five days after your discharge. ? If bleeding should occur while in the hospital, apply firm pressure to the site and call your nurse. ? If bleeding should occur after your discharge: o Sit down and apply firm pressure to site with your fingers for 10 minutes. o If the bleeding stops, continue to sit quietly, keeping your wrist straight for two hours. Call your doctor as soon as possible o If bleeding does not stop after 10 minutes or if there is a large amount of bleeding or spurting, call [address] not [address] yourself to the hospital. ? Remove band-aid 24 hours following application. ? You may shower on the day following your procedure. Do not take a tub bath for three days after your discharge. ? Expect mild tingling of hand and tenderness at the puncture site for up to three days. If this persists or other symptoms develop, please call your nurse or doctor. Heart Failure Discharge Instructions Diet: Low sodium (low salt) diet Fluid intake 2-3 liters daily unless otherwise advised Follow instructions from our dietitian if one visited you Activity: Plan time every day for walking or other activity. If you feel tired and short of breath, stop and rest. Continue activity when ready. Follow guidelines given by cardiac rehab and nursing staff. Treatments/Self Care: Weigh yourself daily at the same time of the day and with the same amount of clothing. Write down your weight every day and keep this record. Avoid NSAIDs or Non-Steroidal Anti-Inflammatory Drugs (ie: Advil, Ibuprofen, Motrin, etc.) Contact Your Doctor If You Have Any of These Symptoms: Sudden weight gain of 2 to 3 pounds in a day or 5 pounds in a week. This is a sign of fluid build-up. Swelling in feet , ankles, legs, or stomach area Shortness of breath or trouble breathing at rest Having to sleep with more pillows or sitting up Frequent or worsening cough A decrease in amount of urination Chest pain Confusion Questions about medications or other problems Review the Living Well with Heart Failure booklet for more information on caring for yourself or your loved one at home. documented in this encounter Medications at Time of Discharge Medication Sig Dispensed Refills Start Date End Date aspirin 81 mg chewable Take 1 tablet (81 90 tablet 4 10/26/2019 tabletIndications: ST mg) by mouth 1 time elevation myocardial per day infarction (STEMI), unspecified artery (HCC) atorvaSTATin calcium Take 1 tablet (80 90 tablet 4 10/25/2019 10/29/2020 (LIPITOR) 80 mg mg) by mouth every tabletIndications: ST night at bedtime elevation myocardial infarction (STEMI), unspecified artery (HCC) carVEDilol (COREG) 3.125 Take 1 tablet 180 tablet 4 10/25/2019 10/29/2020 mg tabletIndications: ST (3.125 mg) by mouth elevation myocardial 2 times a day after infarction (STEMI), meals unspecified artery (HCC) colchicine 0.6 mg TABS Take 1 tablet (0.6 30 tablet 0 10/26/20192019 tabletIndications: ST mg) by mouth 1 time elevation myocardial per day infarction (STEMI), unspecified artery (HCC) ramipril (ALTACE) 5 mg Take 1 capsule (5 90 capsule 4 10/25/20192019 capsuleIndications: ST mg) by mouth 1 time elevation myocardial a day in the infarction (STEMI), evening unspecified artery (HCC) ticagrelor (BRILINTA) 90 Take 1 tablet (90 60 tablet 11 10/25/2019 mg tabletIndications: ST mg) by mouth 2 elevation myocardial times a day infarction (STEMI), unspecified artery (HCC) nicotine (NICODERM) 21 Apply 1 patch (21 30 patch 1 10/26/2019 11/25/2019 mg/24hr [id number]: mg) to the skin 1 ST elevation myocardial time per day infarction (STEMI), unspecified artery (HCC) pyridoxine (VITAMIN B-6) Take 100 mg by 0 100 MG tablet mouth 1 time per day cyanocobalamin (VITAMIN Take 500 mcg by 0 B-12) 500 mcg tablet mouth 1 time per day VITAMIN A PO Take 1 capsule by 0 mouth 1 time per day calcium carbonate (TUMS) Take 1,000 mg by 0 500 MG chewable tablet mouth 4 times a day as needed for heartburn furosemide (LASIX) 40 mg Take 1 tablet (40 30 tablet 0 10/25/20192019 tabletIndications: ST mg) by mouth 1 time elevation myocardial per day infarction (STEMI), unspecified artery (HCC) documented as of this encounter Progress Notes Jenna Gannon PA-C - 10/24/2019 1:08 PM CST Cardiology Progress Note Patient Name: Nithya Issa- Admit Date: 10/23/2019 CSN: [id number] Assessment and Plan Active Problems: STEMI (ST elevation myocardial infarction) (HCC) Ischemic cardiomyopathy Tobacco use Resolved Problems: * No resolved hospital problems. * Plan: Pt was interviewed/examined and a plan was developed along with Dr. Wood . Coronary artery disease/STEMI 10/23/2019: angiogram (NSTEMI), MARY LOU to the 1st diagonal, EF 40% with negro- lateral hypokinesis Troponins: 436.275-->128.445; will continue to trend EKG: ST elevation in the anterolateral leads On: ASA, ticagrelor (BRILINTA), beta krupa and statin Cardiomyopathy - ischemic asymptomatic; appears euvolemic on exam 10/24/2019: echocardiogram, EF 30% (preliminary report) On beta krupa. Will add low dose ramipril (ALTACE) in the evening due to lower BP's Order placed for HF nurse edna Probable pericarditis On colchicine Tobacco dependence Tobacco cessation encouraged -Cardiac Medications (continue): ASA 81 mg/day Ticagrelor (BRILINTA) 90 mg/BID Carvedilol (COREG) 3.125 mg/BID Atorvastatin calcium (LIPITOR) 80 mg/day PRN nitroglycerin (NITROSTAT) Will start: Ramipril (ALTACE) 2.5 mg/evening Code Status: Full Code I appreciate the opportunity to be involved in this patient's care. Cardiology will continue to follow. Jenna Gannon PA-C Cardiology Pager #: [phone] [facility], [place] 10/24/2019 Interval History Nithya Lewis is a [id number] patient admitted for STEMI. After experiencing significant chest pain off and on she went to her local ER to be evaluated, it had progressively gotten worse. Her initial EKG showed ST elevation in the anterior leads, she was transferred to [place] for further management. She underwent an angiogram and received stenting to her first diagonal. She has residual disease (50%) in her RCA. Her EF was thought to be about 40% during her angiogram, she was started on Brilinta and transferred to the floor. She had post-operative chest pain, she was treated with colchicine as well as one dose of Tordal anddid have relief. Today she denies any significant chest pain. Her troponins are still markedly elevated, will plan on trending this. Earliest discharge would be 10/25, however, will wait to see her troponins normalize and see how she tolerates GDMT. She denies any chest pain or shortness of breath with rest or activity. She denies palpitations, fatigue, orthopnea or lower extremity swelling. She denies any significant dizziness, pre-syncope or syncope. ROS All pertinent ROS reviewed in the HPI. Current Vital Signs Temp: 98.1 F (36.7 C) BP: 104/67 Pulse: 75 O2 Device: Room Air Resp: 16 Pain Ratin (out of 10) Weight: 71.8 kg (158 lb 4.6 oz) SpO2: 96 % Physical Exam General Appearance: alert, well appearing, and in no distress Mental Status: alert, oriented to person, place, and time Neck: supple, no bruits heard on exam Chest: clear to auscultation, no wheezes, rales or rhonchi, symmetric air entry Heart: normal rate, regular rhythm, normal S1, S2, no murmurs, rubs, clicks or gallops Neurological: alert, oriented, normal speech Extremities: no lower extremity edema bilaterally Skin: warm, dry Telemetry reviewed: NSR Labs I have reviewed all labs, and pertinent positives and negatives are discussed in the Assessment and Plan. Jacqueline Mike PHARM D - 10/23/2019 8:32 PM CST10/23/2019 20:32 Patient was seen by pharmacy for medication reconciliation. Home medications have been reconciled and updated on the home medication list to match the patient's home usage. Jacqueline Santizo PharmD, BCCCP documented in this encounter Plan of Treatment Date Type Specialty Care Team Description 11/02/2019 Office Visit CARDIOLOGY Kelly Jorgensen, LAUNCH STEWARD-STUDENT WORKER [address] [place] [id number] [phone] Name Type Priority Associated Diagnoses Date/Time EKG CVS STAT 10/23/2019 7:14 AM CEREAL MAKER EKG to be done 3 hours post CVS Routine 10/23/2019 10:19 AM CEREAL MAKER coronary intervention ECHO ADULT COMPLETE CVS Routine 10/23/2019 8:00 PM CEREAL MAKER EKG CVS Routine 10/23/2019 8:39 AM CEREAL MAKER documented as of this encounter Procedures Procedure Name Priority Date/Time Associated Comments Diagnosis LAB ONLY-COMPLETE Routine 10/25/2019 6:43 Results for this BLOOD COUNT WITH AM CEREAL MAKER procedure are in DIFFERENTIAL the results section. TROPONIN I Routine 10/25/2019 6:43 Results for this AM CEREAL MAKER procedure are in the results section. BASIC METABOLIC PANEL Routine 10/25/2019 6:43 Results for this AM CEREAL MAKER procedure are in the results section. LAB ONLY-COMPLETE Routine 10/25/2019 6:43 Results for this BLOOD COUNT WITH AM CEREAL MAKER procedure are in DIFFERENTIAL the results section. TROPONIN I Routine 10/24/2019 6:41 Results for this AM CEREAL MAKER procedure are in the results section. CREATININE Routine 10/24/2019 6:41 Results for this AM CEREAL MAKER procedure are in the results section. BASIC METABOLIC PANEL Routine 10/24/2019 6:41 Results for this AM CEREAL MAKER procedure are in the results section. LIPID PANEL Routine 10/23/2019 8:18 Results for this AM CEREAL MAKER procedure are in the results section. TROPONIN I Routine 10/23/2019 8:18 Results for this AM CEREAL MAKER procedure are in the results section. COMPREHENSIVE Routine 10/23/2019 8:18 Results for this METABOLIC PANEL AM CEREAL MAKER procedure are in the results section. ACTIVATED CLOTTING Routine 10/23/2019 5:57 Results for this TIME POCT AM CEREAL MAKER procedure are in the results section. documented in this encounter Results LAB ONLY-COMPLETE BLOOD COUNT WITH DIFFERENTIAL (10/25/2019 6:43 AM CEREAL MAKER) WBC 8.5 4.0 - 11.0 K/uL [address] RBC 4.30 3.80 - 5.30 M/uL [address] Hemoglobin 13.1 11.5 - 15.8 g/dL [address] Hematocrit 39.7 35.0 - 45.0 % [address] MCV 92.3 80.0 - 98.[address] MCH 30.5 25.5 - 34.[address] MCHC 33.0 31.5 - 36.5 g/dL [address] RDW-CV 13.4 11.5 - 15.5 % [address] RDW-SD 45.4 35.5 - 50.[address] Platelet Count 228 140 - 400 K/uL [address] MPV 10.5 8.5 - 12.[address] Seg Neut Absolute 4.0 1.8 - 8.0 K/uL [address] Lymphocytes Absolute 3.4 0.8 - 4.1 K/uL [place] [address] [facility] Monocytes Absolute 0.8 0.0 - 1.0 K/uL [place] [address] [facility] Eosinophils Absolute 0.2 0.0 - 0.7 K/uL [place] [facility] [address] [facility] Basophil Absolute 0.1 0.0 - 0.2 K/uL [address] Immature Granulocyte 0.04 0.00 - 0.06 K/uL [address] Absolute Neutrophils Abs. (Segs 4,000 /uL [place] [address] [facility] and Bands) Neutrophils Percent 46.7 % [address] Lymphocytes Percent 40.1 % [address] Monocytes Percent 9.1 % [address] Immature Granulocyte 0.5 % [place] [address] [facility] Percent Eosinophils Percent 2.7 % [place] [facility] [address] [facility] Basophil Percent 0.9 % [place] [address] [facility] Nucleated RBC 0 /[address] Specimen Blood Performing Organization Address [facility] Phone Number [address] [place] [address] BASIC METABOLIC PANEL WITH GFR (10/25/2019 6:43 AM CEREAL MAKER) Glucose 105 (H) 70 - 100 mg/dL [address] BUN 13 6 - 22 mg/dL [address] Creatinine 0.76 0.60 - 1.[address] mg/dL BUN/Creatinine Ratio 17.1 10.0 - 25.[address] Sodium 142 135 - 145 meq/L [address] Potassium 3.8 3.5 - 5.3 meq/L [address] Chloride 110 99 - 110 meq/L [address] CO2 23 20 - 29 meq/L [address] Anion Gap with K 13 6 - 20 meq/L [address] Calcium 9.2 8.5 - 10.5 mg/dL [address] Age [address] eGFR Non- 76 >=[address] [place] mL/min/1.73m2 eGFR >90 >=[address] mL/min/1.73m2 Specimen Blood Performing Organization Address [facility] Phone Number [address] [place] [address], [place] [address] TROPONIN I (10/25/2019 6:43 AM CEREAL MAKER) Troponin I 36.275 (H) 0.000 - 0.028 ng/mL [place] [address] [facility] Specimen Blood Performing Organization Address [facility] Phone Number [place] [address] [facility] [address] [place] [address] BASIC METABOLIC PANEL WITH GFR (10/24/2019 6:41 AM CEREAL MAKER) Glucose 125 (H) 70 - 100 mg/dL [address] BUN 12 6 - 22 mg/dL [address] Creatinine 0.85 0.60 - 1.[address] mg/dL BUN/Creatinine Ratio 14.1 10.0 - 25.[address] Sodium 142 135 - 145 meq/L [address] Potassium 3.8 3.5 - 5.3 meq/L [address] Chloride 111 (H) 99 - 110 meq/L [address] CO2 21 20 - 29 meq/L [address] Anion Gap with K 14 6 - 20 meq/L [address] Calcium 9.9 8.5 - 10.5 mg/dL [address] Age [address] eGFR Non- 67 >=[address] [place] mL/min/1.73m2 eGFR 81 >=[address] mL/min/1.73m2 Specimen Blood Performing Organization Address [facility] Phone Number [address] [place] [phone] TROPONIN I (10/24/2019 6:41 AM CEREAL MAKER) Troponin I 128.445 (H) 0.000 - 0.028 ng/mL [address] Specimen Blood Performing Organization Address [facility] Phone Number [address] [place] [address] CREATININE (10/24/2019 6:41 AM CEREAL MAKER) Creatinine 0.84 0.60 - 1.[address] mg/dL Age [address] eGFR Non- 68 >=[address] [place] mL/min/1.73m2 eGFR 82 >=[address] mL/min/1.73m2 Specimen Blood Performing Organization Address [facility] Phone Number [address], [place] [address] COMPREHENSIVE METABOLIC PANEL (10/23/2019 8:18 AM CEREAL MAKER) Glucose 152 (H) 70 - 100 mg/dL [address] BUN 14 6 - 22 mg/dL [address] Creatinine 0.84 0.60 - 1.[address] mg/dL BUN/Creatinine Ratio 16.7 10.0 - 25.[address] Sodium 139 135 - 145 meq/L [address] Potassium 4.2 3.5 - 5.3 meq/L [address] Chloride 108 99 - 110 meq/L [address] CO2 23 20 - 29 meq/L [address] Anion Gap with K 12 6 - 20 meq/L [address] Calcium 8.8 8.5 - 10.[address] mg/dL Protein Total 6.7 6.0 - 8.2 g/dL [address] Albumin 3.6 3.5 - 5.0 g/dL [address] Alkaline Phosphatase 46 30 - 150 U/L [address] AST - SGOT 470 (H) 0 - 35 U/L [address] ALT - SGPT 107 (H) 0 - 55 U/L [address] Bilirubin Total 0.5 0.2 - 1.2 mg/dL [address] Corrected Calcium 9.1 8.5 - 10.[address] mg/dL Age [address] eGFR Non- 68 >=[address] [place] mL/min/1.73m2 eGFR 82 >=[address] mL/min/1.73m2 Specimen Blood Performing Organization Address [facility]/Zipcode Phone Number [address] [place] [phone] LIPID PANEL (10/23/2019 8:18 AM CEREAL MAKER) Cholesterol 198 100 - 200 mg/dL [facility] Triglyceride 80 50 - 150 mg/dL [facility] HDL 48 40 - 80 mg/dL [facility] LDL 134 (H) 0 - 129 mg/dL [facility] Specimen Blood Performing Organization Address City/[facility] Phone Number [facility] [address] [place] [address] TROPONIN I (10/23/2019 8:18 AM CEREAL MAKER) Troponin I 436.275 (H) 0.000 - 0.028 ng/mL [address] Specimen Blood Performing Organization Address [facility] Phone Number [facility] [address] [place] [address] ACTIVATED CLOTTING TIME POCT (10/23/2019 5:57 AM CEREAL MAKER) Activated Clotting 230 (H) 100 - 150 Secs [facility] POINT OF CARE TESTING Specimen Blood Narrative Performed At DEVICE: [email or web address] [facility] POINT OF CARE TESTING Performing Organization Address [facility] Phone Number [facility] POINT OF [address] [place] [phone] CARE TESTING documented in this encounter Visit Diagnoses Diagnosis ST elevation myocardial infarction (STEMI), unspecified artery (HCC) Ischemic cardiomyopathy Other specified forms of chronic ischemic heart disease Tobacco use Tobacco use disorder documented in this encounter Discharge Diagnoses Not on filedocumented in this encounter Administered Medications Medication Order MAR Action Action Date Dose Rate Site acetaminophen (TYLENOL) tablet Given 10/25/2019 5:02 AM CEREAL MAKER 650 mg 650 mg 650 mg, Oral, Every four hours prn, Starting Wed10/23/19 at 0629, Until Discontinued, mild pain, fever, for pain Scale 3 or less, Given 10/24/2019 7:23 PM CEREAL MAKER 650 mg Given 10/24/2019 1:19 PM CEREAL MAKER 650 mg aspirin chewable tablet 81 mg Given 10/25/2019 9:19 AM CEREAL MAKER 81 mg 81 mg, Oral, Daily, First dose on Wed10/24/19 at 0900, Until Discontinued, Post-Procedure (Cath) Given 10/24/2019 8:40 AM CEREAL MAKER 81 mg atorvaSTATin (LIPITOR) tablet 80 mg Given 10/24/2019 7:22 PM CEREAL MAKER 80 mg 80 mg, Oral, Bedtime, First dose on Wed10/23/19 at 2100, Until Discontinued, Post-Procedure (Cath) Given 10/23/2019 8:51 PM CEREAL MAKER 80 mg carVEDilol (COREG) tablet 3.125 mg Given 10/25/2019 9:19 AM CEREAL MAKER 3.125 mg 3.125 mg, Oral, Two times a day after meals, First dose on Wed10/23/19 at 0700, Until Discontinued, Post-Procedure (Cath), Take with food., , , Given 10/24/2019 5:13 PM CEREAL MAKER 3.125 mg Given 10/24/2019 8:40 AM CEREAL MAKER 3.125 mg colchicine tablet 0.6 mg Given 10/25/2019 9:19 AM CEREAL MAKER 0.6 mg 0.6 mg, Oral, Daily, 14 doses, First dose on Wed10/23/19 at 0900, Last dose on Wed11/05/19 at 0900, This medication is a low risk cytotoxic drug. Wear 2 pairs of chemo gloves for administration. If unable to administer dose intact - contact pharmacy for other administration options. Dispose of empty packages in the yellow cytotoxic waste. Dispose of unused or partial packages in the black waste containers., Given 10/24/2019 8:42 AM CEREAL MAKER 0.6 mg Given 10/23/2019 9:48 AM CEREAL MAKER 0.6 mg haloperidol lactate (HALDOL) injection solution 2.5 mg 2.5 mg, IV, Every six hours prn, Starting Wed10/23/19 at 0629, Until Discontinued, other (Specify), nausea/vomiting, 1 mL, Use SECOND for nausea/vomiting. If ineffective and ondansetron used, call physician for alternative Do not further dilute with 0.9% sodium chloride. If preference is to further dilute for IV administration: first draw up patient-specific dose, then dilute to 10ml with dextrose 5% water. Ok to flush with 0.9% Sodium Chloride., heparin (porcine) injection solution Given 10/25/2019 5:02 AM CEREAL MAKER 5,000 Units 5,000 Units 5,000 Units, Subcutaneous, Every eight hours, First dose on Wed10/23/19 at 0635, Until Discontinued, 1 mL Given 10/24/2019 10:10 PM CEREAL MAKER 5,000 Units Given 10/24/2019 1:16 PM CEREAL MAKER 5,000 Units hydrALAZINE (APRESOLINE) injection solution Given 10/23/2019 11:00 AM CEREAL MAKER 10 mg 10 mg 10 mg, IV, Every six hours prn, Starting Wed10/23/19 at 0657, Until Discontinued, specified parameter, to keep SBP less than 150 mmHg, 1 mL, Post-Procedure (Cath), Repeat in 20 minutes if needed. If not successful after two doses, contact the interventional cardiology team., morphine injection solution (conc: 2 mg/mL) 2 Given 10/23/2019 9:10 AM CEREAL MAKER 2 mg mg 2 mg, IV, Every twelve hours prn, Starting Wed10/23/19 at 0830, Until Discontinued, chest pain, 1 mL nicotine (NICODERM) Applied 10/25/2019 9:24 AM CEREAL MAKER 21 mg Arm Right Right 21mg/24hr patch Upper TD 21 mg (1 patch), Transdermal, Daily, First dose on Wed10/23/19 at 1310, Until Discontinued, Administer over 24 Hours Applied 10/24/2019 8:42 AM CEREAL MAKER 21 mg Arm Left Upper TD Applied 10/23/2019 2:48 PM CEREAL MAKER 21 mg Right Arm nicotine polacrilex (COMMIT) lozenge 2 mg 2 mg (1 lozenge), Mouth/Throat, Every one hour prn, Starting Wed10/23/19 at 1307, Until Discontinued, smoking cessation, tobacco cravings, Should not be crushed or chewed, nitroglycerin (NITRO-DUR) Applied 10/25/2019 9:24 AM CEREAL MAKER 0.4 mg Chest Upper Left 0.4mg/hr patch TD 0.4 mg (1 patch), Transdermal, Daily, First dose on Wed10/23/19 at 0900, Until Discontinued, Administer over 12 Hours Applied 10/24/2019 8:42 AM CEREAL MAKER 0.4 mg Chest Upper Left TD Applied 10/23/2019 9:49 AM CEREAL MAKER 0.4 mg Right Shoulder nitroglycerin (NITROSTAT) sublingual tablet 0.4 mg 0.4 mg, Sublingual, Every five minutes prn, Starting Wed10/23/19 at 0657, Until Discontinued, chest pain, Post-Procedure (Cath), At onset of chest pain, dissolve one tablet under tongue. May repeat every 5 minutes for 3 doses. Do not crush or chew., ondansetron (ZOFRAN) injection solution 4 mg Given 10/23/2019 12:06 PM CEREAL MAKER 4 mg 4 mg, IV, Every four hours prn, Starting Wed10/23/19 at 0629, Until Discontinued, nausea, vomiting, 2 mL, Use FIRST. If ineffective after 15 minutes use haloperidol if ordered for nausea/vomiting If preference is to further dilute for IV administration: First draw up patient-specific dose, then dilute to 10 mL with 0.9% sodium chloride., ramipril (ALTACE) capsule 5 mg 5 mg, Oral, Every evening, First dose on Wed10/25/19 at 2100, Until Discontinued sodium chloride 0.9% flush (adult) 10 mL Given 10/25/2019 9:19 AM CEREAL MAKER 10 mL 10 mL, IV, Two times a day and prn, First dose on Wed10/23/19 at 0900, Until Discontinued, 10 mL, Flush IV line as scheduled and as often as necessary before and after meds., Given 10/24/2019 7:25 PM CEREAL MAKER 10 mL Given 10/24/2019 8:43 AM CEREAL MAKER 10 mL ticagrelor (BRILINTA) tablet 90 mg Given 10/25/2019 9:19 AM CEREAL MAKER 90 mg 90 mg, Oral, Two times a day, 730 doses, First dose on Wed10/23/19 at 0900, Last dose on Wed10/21/20 at 2100, Post-Procedure (Cath), If medication is crushed, must be mixed with water for administration., Given 10/24/2019 7:23 PM CEREAL MAKER 90 mg Given 10/24/2019 8:40 AM CEREAL MAKER 90 mg Medication Order MAR Action Action Date Dose Rate Site fentaNYL 100 mcg/2 mL Given 10/23/2019 5:46 AM CEREAL MAKER 25 mcg preservative free injection solution 12.5-300 mcg 12.5-300 mcg, IV, Administer in Cardiac Program Schedule Clerk, 1 dose, Wed10/23/19 at 0540, 6 mL, Under the direction of the provider in CCL. Do not give on the floor. For cardiac catheterization sedation under direction provider privileged to perform sedation., Given 10/23/2019 5:35 AM CEREAL MAKER 25 mcg Given 10/23/2019 5:32 AM CEREAL MAKER 25 mcg heparin (porcine) injection solution Given 10/23/2019 6:02 AM CEREAL MAKER 2,000 Units 0-12,000 Units 0-12,000 Units, IV, Administer in Cardiac Program Schedule Clerk, 1 dose, Wed10/23/19 at 0540, 12 mL, Under the direction of the provider in CCL. Do not give on the floor., iohexol (OMNIPAQUE) 350 mg/mL solution 120 Given 10/23/2019 6:32 AM CEREAL MAKER 120 mL mL 120 mL, Intra-arterial, One time, 1 dose, Wed10/23/19 at 0635, 150 mL ketorolac (TORADOL) intravenous injection 30 Given 10/23/2019 4:26 PM CEREAL MAKER 30 mg mg 30 mg, IV, One time, 1 dose, Wed10/23/19 at 1705, 1 mL, If preference is to further dilute for IV administration: First draw up patient-specific dose, then dilute to 10 mL with 0.9% sodium chloride., lidocaine PF (XYLOCAINE-MPF) 1 % preservative Given 10/23/2019 5:31 AM CEREAL MAKER 1 mL free injection solution 0-40 mL 0-40 mL, Subcutaneous, Administer in Cardiac Program Schedule Clerk, 1 dose, Wed10/23/19 at 0540, 60 mL, Given by provider in CCL. Do not give on the floor., midazolam (VERSED) injection solution 0.5-10 Given 10/23/2019 5:46 AM CEREAL MAKER 1 mg mg 0.5-10 mg, IV, Administer in Cardiac Program Schedule Clerk, 1 dose, Wed10/23/19 at 0540, 10 mL, For cardiac catheterization sedation under direction provider privileged to perform sedation. Do not give on the floor., Given 10/23/2019 5:35 AM CEREAL MAKER 1 mg Given 10/23/2019 5:32 AM CEREAL MAKER 1 mg nitroglycerin (100 mcg/mL) in NS Given 10/23/2019 5:52 AM CEREAL MAKER 4 mL 0-6 mL (0-600 mcg), Intra-arterial, Administer in Cardiac Program Schedule Clerk, 1 dose, Wed10/23/19 at 0555, 10 mL, Given by provider in CCL. Do not give on the floor., nitroglycerin (100 mcg/mL) in NS Given 10/23/2019 6:22 AM CEREAL MAKER 5 mL 0-6 mL (0-600 mcg), Intra-arterial, Administer in Cardiac Program Schedule Clerk, 1 dose, Wed10/23/19 at 0625, 10 mL, Given by provider in CCL. Do not give on the floor., ramipril (ALTACE) capsule 2.5 mg Given 10/24/2019 11:27 PM CEREAL MAKER 2.5 mg 2.5 mg, Oral, Every evening, First dose on Wed10/24/19 at 2100, Until Discontinued sodium chloride 0.9% IV solution New Bag 10/23/2019 9:20 AM CEREAL MAKER 100 mL/hr IV, at 100 mL/hr, Continuous, Starting Wed10/23/19 at 0735, Until Wed10/23/19 at 1534, 1,000 mL, Post-Procedure (Cath) verapamil-hEParin in normal saline (radial Given 10/23/2019 5:32 AM CEREAL MAKER cocktail) Intra-arterial, Administer in Cardiac Program Schedule Clerk, 1 dose, Wed10/23/19 at 0540, 10 mL, Under the direction of the provider in CCL. Do not give on the floor., documented in this encounter
== END 2019-10-23 03:05 ==
LOC: LL.ED 01:15
DX: I21.3 ST elevation (STEMI) myocardial infarction of unspecified site (principal); E87.6 Hypokalemia; I10 Essential (primary) hypertension; J44.9 Chronic obstructive pulmonary disease, unspecified; F17.200 Nicotine dependence, unspecified, uncomplicated; Z88.2 Allergy status to sulfonamides
CPT/HCPCS: 36415; 71045; 80053; 83735; 83880; 84484; 85025; 85379; 85610; 93005; 96374; 96375; 96376; 99284; 99285-25; A9270-GY; J1644; J2270; J2405; J3101; J7030

== ENCOUNTER 2019-11-16 11:02 | Emergency (ER) | payer MEDICARE, OTHER ==
[2019-11-16] MEDS ORDERED: Nitroglycerin 0.4 MG Tab.SL ONE (11:05)
[2019-11-16] MEDS ORDERED: Sodium Chloride 0.9% 10 ML Syringe FLUSH PRN (11:27)
[2019-11-16] MEDS ORDERED: Aspirin 81 MG Tab.Chew PO ONE (11:29)
[2019-11-16] MEDS ORDERED: Sodium Chloride 0.9% 1,000 ML IV SCH (11:30)
[2019-11-16] MEDS ORDERED: Nitroglycerin/D5W 25 MG/250 ML BOTTLE IV SCH (11:30)
[2019-11-16 11:44] LABS: CHLORIDE,CL 105 mmol/L (98-107); SODIUM,NA 142 mmol/L (136-145)
[2019-11-16] MEDS ORDERED: Heparin Sodium 5,000 Units/ML Vial IVPUSH ONE (11:54)
[2019-11-16] MEDS ORDERED: Heparin Sodium/D5W 25,000 UNITS/500 ML BAG IV SCH (12:00)
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
== END 2019-11-16 13:50 ==
LOC: LL.ED 11:02
DX: I25.110 Atherosclerotic heart disease of native coronary artery with unstable angina pectoris (principal); I10 Essential (primary) hypertension; M19.90 Unspecified osteoarthritis, unspecified site; Z88.2 Allergy status to sulfonamides; Z79.899 Other long term (current) drug therapy
CPT/HCPCS: 36415; 71045; 80053; 84484; 85025; 85730; 93005; 96365; 96366; 96368; 99285-25; A9270-GY; J1644; J3490; J7030

== ENCOUNTER 2019-11-23 16:51 | Emergency (ER) | payer MEDICARE, OTHER ==
--- NOTE | 2019-11-23 17:11 | EDM.PDOC ---
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 (primary) hypertension (9) Mixed anxiety depressive disorder SNOMED Code(s): 882819588 Code(s): F41.8 - OTHER SPECIFIED ANXIETY DISORDERS Status: Chronic Priority: Medium Current Visit: Yes Annotation/Comment:: Stable by history. Continue to observe closely with no current medical therapy. (10) Osteoarthritis SNOMED Code(s): 404400482 Code(s): M19.90 - UNSPECIFIED OSTEOARTHRITIS, UNSPECIFIED SITE Status: Chronic Priority: Medium Current Visit: Yes Annotation/Comment:: Stable by history Qualifiers: Osteoarthritis location: multiple joints Osteoarthritis type: primary Qualified Code(s): M15.0 - Primary generalized (osteo)arthritis (11) Peptic reflux disease SNOMED Code(s): 055424088 Code(s): K21.9 - GASTRO-ESOPHAGEAL REFLUX DISEASE WITHOUT ESOPHAGITIS Status: Chronic Priority: Medium Current Visit: Yes Annotation/Comment:: Stable by history with no current medical therapy required and only very occasional Tums use (12) Right middle lobe pulmonary nodule SNOMED Code(s): 010375730 Code(s): R91.1 - SOLITARY PULMONARY NODULE Status: Acute Priority: Medium Current Visit: Yes Onset Date: ~11/23/19 Annotation/Comment:: 3 mm right middle lobe pulmonary nodule with history of sarcoidosis. Observe for now with follow-up by her regular providers - Problem List Review Problem List Initiated/Reviewed/Updated: Yes - My Orders Last 24 Hours: My Active Orders 11/23/19 17:05 CULTURE BLOOD [BC] Stat 11/23/19 17:11 Blood Culture x2 Reflex Set [OM.PC] Urgent 11/23/19 17:12 CULTURE BLOOD [BC] Stat 11/23/19 17:13 Obtain Past Medical Record [OM.PC] Routine 11/23/19 17:14 EKG Documentation Completion [RC] ASDIRECTED 11/23/19 17:15 Cardiac Monitoring [RC] . DIRECTED 11/23/19 17:30 Lactated Ringers [Ringers, Lactated] 1,000 ml IV ASDIRECTED - Assessment/Plan Last 24 Hours: My Active Orders 11/23/19 17:05 CULTURE BLOOD [BC] Stat 11/23/19 17:11 Blood Culture x2 Reflex Set [OM.PC] Urgent 11/23/19 17:12 CULTURE BLOOD [BC] Stat 11/23/19 17:13 Obtain Past Medical Record [OM.PC] Routine 11/23/19 17:14 EKG Documentation Completion [RC] ASDIRECTED 11/23/19 17:15 Cardiac Monitoring [RC] . DIRECTED 11/23/19 17:30 Lactated Ringers [Ringers, Lactated] 1,000 ml IV ASDIRECTED Assessment:: As above. Plan: As above. Extensive precautions were given to the patient and her sister, who are in agreement with the treatment plan. Ambulance transfer to [facility] via ambulance with train system operator accompaniment.
[2019-11-23] MEDS ORDERED: cefTRIAXone 2 GM Vial IVPUSH ONE (17:18)
[2019-11-23] MEDS ORDERED: Lactated Ringers 1,000 ML IV SCH (17:30)
== END 2019-11-23 18:30 ==
LOC: LL.ED 16:51
DX: K65.9 Peritonitis, unspecified (principal); K21.9 Gastro-esophageal reflux disease without esophagitis; I25.10 Atherosclerotic heart disease of native coronary artery without angina pectoris; I11.0 Hypertensive heart disease with heart failure; I50.9 Heart failure, unspecified; E78.00 Pure hypercholesterolemia, unspecified; J44.9 Chronic obstructive pulmonary disease, unspecified; E83.42 Hypomagnesemia; F41.8 Other specified anxiety disorders; M19.90 Unspecified osteoarthritis, unspecified site; E88.09 Other disorders of plasma-protein metabolism, not elsewhere classified; R58 Hemorrhage, not elsewhere classified; Z88.2 Allergy status to sulfonamides; Z79.82 Long term (current) use of aspirin; Z79.899 Other long term (current) drug therapy; Z79.02 Long term (current) use of antithrombotics/antiplatelets; Z95.5 Presence of coronary angioplasty implant and graft; Z87.891 Personal history of nicotine dependence
CPT/HCPCS: 36415; 82550; 82553; 83880; 84484; 85610; 85730; 87040; 93005; 96361; 96374; 99285-25; J0696; J7120

== ENCOUNTER 2020-01-04 12:29 | Observation (INO) | payer MEDICARE, OTHER ==
[2020-01-04] MEDS ORDERED: Ticagrelor 90 MG Tab PO ONE (12:32)
[2020-01-04] MEDS ORDERED: Aspirin 81 MG Tab.Chew CHEW ONE (12:32)
[2020-01-04] MEDS ORDERED: Famotidine 20 MG/2 ML SDV IVPUSH ONE (12:32)
--- NOTE | 2020-01-04 12:32 | EDM.PDOC ---
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 rehabilitation program at this time. Chest pain protocol was initiated in the emergency room with almost complete resolution of patient's chest pain with aggressive treatment as above. Possible GI component. Note recent PTCA/ stent on 10/23/19 and 11/16/18 as above. EKG is persistent probable lateral wall artery ischemia somewhat increased from last EKG on 11/23/19, although improved anterior wall ischemia. Low threshold for cardiology consultation and/or transfer. Note complications from last heart catheterization including right- sided retroperitoneal hematoma, which is improving by last CT scan of the abdomen and pelvis on 11/30/19. No evidence of significant hematoma, ecchymosis, etc. by today's clinical exam. Cardiac enzymes are normal with exception of mild change in troponin I and elevated BNP. D-dimer is normal with no clinical evidence of PE or DVT. Qualifiers: Coronary Disease-Associated Artery/Lesion type: [place] artery [place] vs. transplanted heart: [place] heart Associated angina: without angina Qualified Code(s): I25.10 - Atherosclerotic heart disease of [place] coronary artery without angina pectoris (2) CHF (congestive heart failure) SNOMED Code(s): 99181880 Code(s): I50.9 - HEART FAILURE, UNSPECIFIED Status: Acute Priority: Medium Current Visit: No Onset Date: ~11/23/19 Annotation/Comment:: Initiate IV Lasix therapy with caution. Note recent echocardiogram on 11/16/19 did show some ischemic cardiomyopathy with consideration of ADOLPH inhibitor therapy at discharge and/or shortly thereafter, however no initial aggressive treatment secondary to newly initiated Imdur as above. By patient history her electrician manager is apparently considering possible pacemaker as cardiac augmentation. Close follow-up by electrician manager and regular provider. Qualifiers: Heart failure type: unspecified Heart failure chronicity: acute Qualified Code(s): I50.9 - Heart failure, unspecified (3) Hypertension SNOMED Code(s): 56245646 Code(s): I10 - ESSENTIAL (PRIMARY) HYPERTENSION Status: Chronic Priority : Medium Current Visit: Yes Annotation/Comment:: Blood pressures have been somewhat elevated recently as above, including in the emergency room today. Blood pressures improved with sublingual nitroglycerin tablet 2. Initiate Imdur therapy both for treatment of her hypertension and as cardiac prophylaxis. Sublingual nitroglycerin tablets should also be prescribed at discharge with the patient not having a prescription for this medication at this time. Previous Coreg therapy has been reinitiated by her electrician manager and regular provider. Continue to observe blood pressures closely. Qualifiers: Hypertension type: essential hypertension Qualified Code(s): I10 - Essential (primary) hypertension (4) Elevated LFTs SNOMED Code(s): 007916377, 988849279 Code(s): R94.5 - ABNORMAL RESULTS OF LIVER FUNCTION STUDIES Status: Acute Priority: High Current Visit: Yes Onset Date: 01/04/20 Annotation/ Comment:: Possibly secondary to CHF and/or fatty liver. Consider abdominal ultrasound depending on her clinical course. Note current Lipitor therapy. (5) COPD (chronic obstructive pulmonary disease) SNOMED Code(s): 16046579 Code(s): J44.9 - CHRONIC OBSTRUCTIVE PULMONARY DISEASE, UNSPECIFIED Status : Chronic Priority: Medium Current Visit: Yes Annotation/Comment:: No recent bronchitic type symptoms, fever, etc.. Note history of sarcoidosis as above with no current medical therapy required. PFTs should be conducted on an outpatient basis. Patient was congratulated about her tobacco cessation after her recent LA on 10/23/19. Qualifiers: COPD type: emphysema Emphysema type: panlobular Qualified Code(s): J43.1 - Panlobular emphysema (6) Mixed anxiety depressive disorder SNOMED Code(s): 080757423 Code(s): F41.8 - OTHER SPECIFIED ANXIETY DISORDERS Status: Chronic Priority: Medium Current Visit: Yes Annotation/Comment:: Stable by history. Continue to observe closely with no current medical therapy. (7) Osteoarthritis SNOMED Code(s): 432127269 Code(s): M19.90 - UNSPECIFIED OSTEOARTHRITIS, UNSPECIFIED SITE Status: Chronic Priority: Medium Current Visit: Yes Annotation/Comment:: Stable by history Qualifiers: Osteoarthritis location: multiple joints Osteoarthritis type: primary Qualified Code(s): M15.0 - Primary generalized (osteo)arthritis (8) Peptic reflux disease SNOMED Code(s): 368110986 Code(s): K21.9 - GASTRO-ESOPHAGEAL REFLUX DISEASE WITHOUT ESOPHAGITIS Status: Chronic Priority: Medium Current Visit: Yes Annotation/Comment:: Frequent recent heartburn requiring OTC antacids as above. High-dose IV Pepcid given in the emergency room with continuation of high-dose oral Pepcid recommended at discharge. Attempt to obtain H. pylori stool antigen. Possible GI component to her cardiac symptoms as above. Consider EGD and/or colonoscopy once her cardiac status has stabilized. Note history of diverticulitis in the past with no other current symptoms. - Problem List Review Problem List Initiated/Reviewed/Updated: Yes - My Orders Last 24 Hours: My Active Orders 01/04/20 12:32 Sodium Chloride 0.9% [Saline Flush] 10 ml FLUSH ASDIRECTED PRN Resuscitation Status Stat 01/04/20 12:33 Cardiac Monitoring [RC] . DIRECTED EKG Documentation Completion [RC] ASDIRECTED Oxygen Therapy, ED [RC] PRN Peripheral IV Care [RC] . DIRECTED Pulse Oximetry [RC] CONTINUOUS Up With Assistance [RC] PFP Vital Signs [RC] PFP Chest 1V Frontal [CR] Stat Obtain Past Medical Record [OM.PC] Urgent Peripheral IV Insertion Adult [OM.PC] Stat 01/04/20 12:37 Nitroglycerin [Nitrostat] 0.4 mg SL ONETIME STA 01/04/20 13:06 Nitroglycerin [Nitrostat] 0.4 mg SL ONETIME STA 01/04/20 Breakfast Nothing per Oral Now Diet [DIET] - Assessment/Plan Admission H&P: Please use this note as an admission H&P Last 24 Hours: My Active Orders 01/04/20 12:32 Sodium Chloride 0.9% [Saline Flush] 10 ml FLUSH ASDIRECTED PRN Resuscitation Status Stat 01/04/20 12:33 Cardiac Monitoring [RC] . DIRECTED EKG Documentation Completion [RC] ASDIRECTED Oxygen Therapy, ED [RC] PRN Peripheral IV Care [RC] . DIRECTED Pulse Oximetry [RC] CONTINUOUS Up With Assistance [RC] PFP Vital Signs [RC] PFP Chest 1V Frontal [CR] Stat Obtain Past Medical Record [OM.PC] Urgent Peripheral IV Insertion Adult [OM.PC] Stat 01/04/20 12:37 Nitroglycerin [Nitrostat] 0.4 mg SL ONETIME STA 01/04/20 13:06 Nitroglycerin [Nitrostat] 0.4 mg SL ONETIME STA 01/04/20 Breakfast Nothing per Oral Now Diet [DIET] Assessment:: As above Plan: As above. Extensive precautions were given to the patient, who is in agreement with the treatment plan. The patient's condition is stable enough for observation status and general supervision. Dr. Wallis assumes care in the a.m.
[2020-01-04] MEDS ORDERED: Nitroglycerin 0.4 MG Tab.SL SL STA ×2 (12:37→13:06)
[2020-01-04] MEDS: Sodium Chloride 0.9% 10 ML Syringe FLUSH PRN ×3 (12:48→23:15)
[2020-01-04] MEDS ORDERED: Ondansetron 4 MG/2 ML SDV IVPUSH ONE (13:06)
[2020-01-04] MEDS ORDERED: Morphine 2 MG/ML Syringe IVPUSH ONE (13:07)
[2020-01-04 13:09] LABS: CHLORIDE,CL 107 mmol/L (98-107); SODIUM,NA 144 mmol/L (136-145)
[2020-01-04] MEDS ORDERED: Acetaminophen 325 MG Tab PO PRN (14:34)
[2020-01-04] MEDS ORDERED: Temazepam 15 MG Cap PO PRN (14:34)
[2020-01-04] MEDS ORDERED: GI Cocktail Oral Solution 30 ML PO ONE (15:12)
[2020-01-04] MEDS: Furosemide 40 MG/4 ML VIAL IVPUSH SCH ×2 (15:42→23:14)
[2020-01-04] MEDS ORDERED: Ondansetron 4 MG/2 ML SDV IVPUSH PRN (17:27)
[2020-01-04] MEDS ORDERED: Morphine 2 MG/ML Syringe IVPUSH PRN (17:27)
[2020-01-04] MEDS ORDERED: Nitroglycerin/D5W 25 MG/250 ML BOTTLE IV SCH (17:30)
[2020-01-04] MEDS ORDERED: Sodium Chloride 0.9% 1,000 ML IV SCH (17:45)
[2020-01-04] MEDS ORDERED: Potassium Chloride 20 MEQ Tab.ER PO SCH (18:00)
[2020-01-04] MEDS ORDERED: Metoprolol Tartrate 50 MG Tab PO SCH (18:00)
[2020-01-04] MEDS ORDERED: Isosorbide Mononitrate 30 MG Tab.ER PO SCH (18:00)
[2020-01-04] MEDS ORDERED: atorvaSTATin 40 MG Tab PO SCH (20:00)
[2020-01-05] MEDS: Sodium Chloride 0.9% 10 ML Syringe FLUSH PRN (04:11)
[2020-01-05 05:37] LABS: HEMOGLOBIN A1C 5.2 % (4.3-5.7)
--- NOTE | 2020-01-05 05:52 | PCM.DCSUM1 ---
Discharge Summary - Hospital Course HPI Initial Comments: See emergency room note/admission H&P Brief History: See emergency room note/admission H&P Diagnosis: Stroke: No Modified Cedar Scale: No Symptoms at All Modified Cedar Scale Score: 0 - Discharge Data Discharge Date: 01/05/20 Discharge Disposition: Home, Self-Care 01 Condition: Good - Referral to Home Health Primary Care Physician: Cate Ma PA-C - Discharge Diagnosis/Problem(s) (1) CAD (coronary artery disease) SNOMED Code(s): 80120698 ICD Code: I25.10 - ATHSCL HEART DISEASE OF [place] CORONARY ARTERY W/O ANG PCTRS Status: Acute Priority: High Current Visit: Yes Problem Details: Patient with breakthrough nonspecific chest pain at about 16:30 hours on 01/04 with actual improvement of her EKG at that time. IV nitroglycerin infusion was started with overall improvement of her symptoms. At about 02:45 hours this morning the patient became hypotensive and diaphoretic with systolic blood pressures in the 70s with moderate dizziness and blurred vision bilaterally, however no fall, injury, etc.. Her chest pain had actually improved with no other anginal-type symptoms. Hypotension likely secondary to her aggressive IV Lasix therapy and IV nitroglycerin infusion, which were discontinued. Patient was given a total of three 250 mL IV boluses of normal saline with improvement of her systolic blood pressures in the 90s and complete resolution of her symptoms. She did continue to have 2/10 nonspecific sharp left-sided discomfort , which has been present since 11/16/19 as per emergency room note, with no worsening chest discomfort since discontinuation of her nitroglycerin infusion. Telephone consultation at 05:[address] Garcia, hospitalist at [facility], who does accept the patient for direct admission. Per his recommendations we did start IV heparin non-STEMI protocol, including initial 4000 unit IV bolus and subsequent 1000 unit per hour infusion. Ambulance transfer with plaster mechanic accompaniment. Patient is in our cardiac rehabilitation program at this time. Chest pain protocol was initiated in the emergency room with almost complete resolution of patient's chest pain with aggressive treatment as per that now. Possible GI component. Note recent PTCA/ stent on 10/23/19 and 11/16/18. EKG on admission showed persistent probable lateral wall artery ischemia somewhat increased from last EKG on 11/23/19, although improved anterior wall ischemia. EKG this morning showed increased/ returned lateral wall cardiac ischemia since EKG taken at the [facility] in [place] shortly prior to transfer to our emergency room. She will likely need further cardiac workup, including repeat echocardiogram, probable Cardiolite evaluation, etc. Note complications from last heart catheterization, including right-sided retroperitoneal hematoma, which is improving by last CT scan of the abdomen and pelvis on 11/30/19. No evidence of significant hematoma, ecchymosis, etc. by clinical exam. Serial cardiac enzymes 4 have been normal with exception of mild change in troponin I and elevated BNP. D-dimer was normal on admission with no clinical evidence of PE or DVT. Qualifiers: Coronary Disease-Associated Artery/Lesion type: [place] artery [place] vs. transplanted heart: [place] heart Associated angina: without angina Qualified Code(s): I25.10 - Atherosclerotic heart disease of [place] coronary artery without angina pectoris (2) CHF (congestive heart failure) SNOMED Code(s): 74903077 ICD Code: I50.9 - HEART FAILURE, UNSPECIFIED Status: Acute Priority: Medium Current Visit: No Onset Date: ~11/23/19 Problem Details: Initiated IV Lasix therapy with caution shortly after admission, however note hypotensive episode as above. Note recent echocardiogram on 11/16/19 did show some ischemic cardiomyopathy with consideration of ADOLPH inhibitor therapy, however no initial aggressive treatment secondary to previously planned Imdur and sensitivity to nitroglycerin infusion as above. By patient history her dairy store manager is apparently considering possible pacemaker as cardiac augmentation. Close follow- up by dairy store manager and regular provider after discharge from [facility]. Qualifiers: Heart failure type: unspecified Heart failure chronicity: acute Qualified Code(s): I50.9 - Heart failure, unspecified (3) Hypertension SNOMED Code(s): 85886281 ICD Code: I10 - ESSENTIAL (PRIMARY) HYPERTENSION Status: Chronic Priority : Medium Current Visit: Yes Problem Details: Hypotensive episode above. Previous to that blood pressures had improved significantly after admission. Blood pressures have been somewhat elevated recently, including in the emergency room. Blood pressures improved with sublingual nitroglycerin tablet 2 in the emergency room. Sublingual nitroglycerin tablets should also be prescribed at discharge with the patient not having a prescription for this medication at this time. Previous Coreg therapy has been reinitiated by her dairy store manager and regular provider prior to admission, however note sensitivity to this medication in the past. Low-dose Lopressor was initiated on 11/03 p.m.. Continue to observe blood pressures closely. Qualifiers: Hypertension type: essential hypertension Qualified Code(s): I10 - Essential (primary) hypertension (4) Elevated LFTs SNOMED Code(s): 367368510, 814250210 ICD Code: R94.5 - ABNORMAL RESULTS OF LIVER FUNCTION STUDIES Status: Acute Priority: High Current Visit: Yes Onset Date: 01/04/20 Problem Details : Possibly secondary to CHF and/or fatty liver. Consider abdominal ultrasound depending on her clinical course. Note current Lipitor therapy. (5) COPD (chronic obstructive pulmonary disease) SNOMED Code(s): 06897714 ICD Code: J44.9 - CHRONIC OBSTRUCTIVE PULMONARY DISEASE, UNSPECIFIED Status : Chronic Priority: Medium Current Visit: Yes Problem Details: No recent bronchitic type symptoms, fever, etc.. Note history of sarcoidosis as above with no current medical therapy required. PFTs should be conducted on an outpatient basis. Patient was congratulated about her tobacco cessation after her recent PA on 10/23/19. Qualifiers: COPD type: emphysema Emphysema type: panlobular Qualified Code(s): J43.1 - Panlobular emphysema (6) Mixed anxiety depressive disorder SNOMED Code(s): 950113335 ICD Code: F41.8 - OTHER SPECIFIED ANXIETY DISORDERS Status: Chronic Priority: Medium Current Visit: Yes Problem Details: Stable by history. Continue to observe closely with no current medical therapy. (7) Osteoarthritis SNOMED Code(s): 551439872 ICD Code: M19.90 - UNSPECIFIED OSTEOARTHRITIS, UNSPECIFIED SITE Status: Chronic Priority: Medium Current Visit: Yes Problem Details: Stable by history Qualifiers: Osteoarthritis location: multiple joints Osteoarthritis type: primary Qualified Code(s): M15.0 - Primary generalized (osteo)arthritis (8) Peptic reflux disease SNOMED Code(s): 940917683 ICD Code: K21.9 - GASTRO-ESOPHAGEAL REFLUX DISEASE WITHOUT ESOPHAGITIS Status: Chronic Priority: Medium Current Visit: Yes Problem Details: Frequent recent heartburn requiring OTC antacids as above. High-dose IV Pepcid given in the emergency room with continuation of high-dose oral Pepcid recommended at discharge. Unable to obtain H. pylori stool antigen. Possible GI component to her cardiac symptoms as above. Consider EGD and/or colonoscopy once her cardiac status has stabilized. Note history of diverticulitis in the past with no other current symptoms. (9) Hypoalbuminemia SNOMED Code(s): 166230010 ICD Code: E88.09 - OTH DISORDERS OF PLASMA-PROTEIN METABOLISM, NEC Status: Chronic Priority: Medium Current Visit: No Onset Date: 05/18/18 Problem Details: She has been noncompliant with her high-protein Glucerna supplements. Consider reinitiation by accepting providers. Close follow-up by regular provider. - Patient Summary/Data Operative Procedure(s) Performed: None Complications: None Consults: Hospitalist as above Labs Pending at D/C: None Recommended Follow-up Testing/Procedures: As above Planned Operative Procedure(s) after DC: Per accepting provider and/or dairy store manager Hospital Course: The patient was placed in observation status on telemetry with negative workup for acute PA, however evidence of labile lateral wall cardiac ischemia by serial EKGs as above. Aggressive treatment of her chest pain, including IV nitroglycerin infusion and IV Lasix for her CHF with secondary hypotension, however no significant sequelae. Further cardiac workup is needed with hospital transfer required as above. - Patient Instructions Diet: NPO Activity: Bedrest Driving: Do Not Drive Showering/Bathing: No Showering Notify Provider of: Increased Pain, Nausea and/or Vomiting Other/Special Instructions: Ambulance transfer to [place] - Discharge Plan *PRESCRIPTION DRUG MONITORING PROGRAM REVIEWED*: Not Applicable *COPY OF PRESCRIPTION DRUG MONITORING REPORT IN PATIENT PANCHO: Not Applicable Home Medications: Home Meds Aspirin 81 mg PO DAILY 11/16/19 [History] Calcium Carbonate [Tums] 1,000 mg PO QID PRN 11/16/19 [History] Clopidogrel [Plavix] 75 mg PO DAILY 11/16/19 [History] Cyanocobalamin (Vitamin B-12) [B-12] 500 mcg PO DAILY 11/16/19 [History] Pyridoxine HCl (Vitamin B6) [Vitamin B-6] 100 mg PO DAILY 11/16/19 [History] Vitamin A 8,000 unit PO DAILY 11/16/19 [History] atorvaSTATin Calcium [Lipitor] 80 mg PO BEDTIME 11/16/19 [History] Calcium Carb/Magnesium Hydrox [Rolaids Chewable Tablet] 1 tab PO ASDIRECTED [History] Oxygen Therapy Mode: Room Air Forms: ED Department Discharge, Interfacility Transfer EMTALA Referrals: Cate Ma PA-C [Primary Care Provider] - - Discharge Summary/Plan Comment DC Time >30 min.: Yes (Coordination of care ) Discharge Summary/Plan Comment: As above. Extensive precautions were given to the patient, who is in agreement with the treatment plan. - General Info Date of Service: 01/05/20 Admission Dx/Problem (Free Text: 1. Chest pain 2. Coronary artery disease with ischemic cardiomyopathy 3. CHF 4. Hypertension Functional Status: Reports: Pain Controlled, Tolerating Diet, Ambulating, Urinating, New Symptoms (Hypotension as above) Numeric/FACES Score: 2 - Review of Systems General: Reports: No Symptoms. Denies: Fever, Weakness, Chills, Night Sweats, Appetite (Good) HEENT: Reports: Glasses. Denies: Ear Pain, Eye Pain, Post Nasal Drip, Sinus Congestion, Sore Throat, Rhinitis, Visual Changes (Resolved at transfer) Pulmonary: Reports: No Symptoms. Denies: Shortness of Breath, Pleuritic Chest Pain, Cough, Sputum, Hemoptysis Cardiovascular: Reports: Chest Pain, Dyspnea on Exertion. Denies: Palpitations , Orthopnea, PND, Edema, Lightheadedness Gastrointestinal: Reports: No Symptoms, Other (No bowel movement since admission ). Denies: Abdominal Pain, Constipation, Decreased Appetite, Diarrhea, Difficulty Swallowing, Flatus, Hematochezia, Melena, Nausea, Vomiting Genitourinary: Reports: No Symptoms. Denies: Dysuria, Frequency, Burning, Urgency, Incontinence, Hematuria, Retention, Flank Pain Musculoskeletal: Reports: No Symptoms. Denies: Neck Pain, Shoulder Pain, Arm Pain, Back Pain, Leg Pain Skin: Reports: No Symptoms. Denies: Diaphoresis (Resolved at transfer), Bruising Neurological: Reports: No Symptoms. Denies: Confusion, Dizziness, Paresthesia, Syncope, Tingling, Weakness Psychiatric: Reports: No Symptoms. Denies: Confusion, Depression, Anxiety, Agitation, Hallucinations - Patient Data Vitals - Most Recent: Last Vital Signs Temp 36.4 C 01/05/20 00:00 Pulse 60 01/05/20 04:41 Resp 16 01/05/20 04:00 BP 91/45 L 01/05/20 04:41 Pulse Ox 96 01/05/20 04:00 Vital Signs - 24 hr 01/04/20 01/04/20 01/04/20 12:30 12:33 12:41 Temperature [ 36.1 C Temporal] Pulse, Peripheral Pulse, 71 Peripheral [ Pulse Oximetry] Respiratory 16 Rate Blood Pressure 142/102 H Blood Pressure 142/102 H [Right Upper Arm] O2 Sat by Pulse 100 Oximetry O2 Sat by Pulse 100 Oximetry [Room Air] 01/04/20 01/04/20 01/04/20 12:42 13:00 13:08 Temperature [ Temporal] Pulse, Peripheral Pulse, 68 69 Peripheral [ Pulse Oximetry] Respiratory 24 H 24 H Rate Blood Pressure 149/88 H Blood Pressure 146/96 H 149/88 H [Right Upper Arm] O2 Sat by Pulse 100 100 Oximetry O2 Sat by Pulse Oximetry [Room Air] 01/04/20 01/04/20 01/04/20 13:12 13:27 13:45 Temperature [ Temporal] Pulse, Peripheral Pulse, 72 67 68 Peripheral [ Pulse Oximetry] Respiratory 16 16 Rate Blood Pressure Blood Pressure 133/87 148/80 H 155/90 H [Right Upper Arm] O2 Sat by Pulse 97 98 98 Oximetry O2 Sat by Pulse Oximetry [Room Air] 01/04/20 01/04/20 01/04/20 16:00 17:46 20:00 Temperature [ 36.2 C 36.6 C Temporal] Pulse, 73 Peripheral Pulse, 72 70 Peripheral [ Pulse Oximetry] Respiratory 16 16 Rate Blood Pressure 144/82 H Blood Pressure 158/93 H 111/63 [Right Upper Arm] O2 Sat by Pulse 94 L 95 Oximetry O2 Sat by Pulse Oximetry [Room Air] 01/04/20 01/05/20 01/05/20 21:43 00:00 02:50 Temperature [ 36.4 C 36.4 C Temporal] Pulse, Peripheral Pulse, 60 66 Peripheral [ Pulse Oximetry] Respiratory 16 16 Rate Blood Pressure Blood Pressure 113/59 L 103/56 L 75/50 L [Right Upper Arm] O2 Sat by Pulse 96 97 Oximetry O2 Sat by Pulse Oximetry [Room Air] 01/05/20 01/05/20 01/05/20 03:22 04:00 04:41 Temperature [ Temporal] Pulse, Peripheral Pulse, 64 60 Peripheral [ Pulse Oximetry] Respiratory 16 Rate Blood Pressure Blood Pressure 92/44 L 84/46 L 91/45 L [Right Upper Arm] O2 Sat by Pulse 96 Oximetry O2 Sat by Pulse Oximetry [Room Air] Weight - Most Recent: 70.307 kg I&O - Last 24 hours: Intake & Output 01/04/20 01/04/20 01/05/20 14:59 22:59 06:59 Intake Total 120 38 Output Total 1100 300 Balance -980 -262 Imaging Impressions - Last 24 hrs: Personal Care Aide showed normal sinus rhythm with heart rate in the 60s with no ectopy or arrhythmia. Chest x-ray, portable, on 01/04/20 shows moderate COPD changes with mild pulmonary hypertension and/or centralized CHF. No pulmonary infiltrates, pneumothorax, cardiomegaly, etc. Lab Results - Last 24 hrs: Laboratory Results - last 24 hr 01/04/20 01/04/20 01/04/20 Range/Units 12:39 12:39 12:39 WBC 6.8 (4.0-10.2) K/uL RBC 4.28 (3.77-5.09) M/uL Hgb 13.4 D (11.7-15.5) g/dL Hct 41.0 (34.0-46.0) % MCV 95.8 (84.0-98.0) fL MCH 31.3 (28.2-33.3) pg MCHC 32.7 (31.7-36.0) g/dL RDW 14.0 (11.2-14.1) % Plt Count 269 (150-350) K/uL Neut % (Auto) 38.3 L (45.0-80.0) % Lymph % (Auto) 46.5 (10.0-50.0) % [place] % (Auto) 9.7 (2.0-14.0) % Eos % (Auto) 4.9 (0.0-5.0) % Baso % (Auto) 0.6 (0.0-2.0) % Neut # (Auto) 2.60 (1.40-7.00) K/uL Lymph # (Auto) 3.16 (0.50-3.50) K/uL [place] # (Auto) 0.66 (0.00-1.00) K/uL Eos # (Auto) 0.33 (0.00-0.50) K/uL Baso # (Auto) 0.04 (0.00-0.20) K/uL PT 10.6 (9.5-12.0) SEC INR 1.0 APTT 25.3 (21.0-31.3) SEC D-Dimer, Quantitative 298 (0-400) ng/mL Sodium (136-145) mmol/L Potassium (3.5-5.1) mmol/L Chloride (98-107) mmol/L Carbon Dioxide (21.0-32.0) mmol/L BUN (7-18) mg/dL Creatinine (0.51-1.17) mg/dL Est Cr Clr Drug Dosing mL/min Estimated GFR (MDRD) mL/min Glucose (74-106) mg/dL Hemoglobin A1c (4.3-5.7) % Lactic Acid (0.4-2.0) mmol/L Uric Acid (2.6-7.2) mg/dL Calcium (8.5-10.1) mg/dL Magnesium (1.8-2.4) mg/dL Total Bilirubin (0.2-1.0) mg/dL AST (15-37) U/L ALT (12-78) U/L Alkaline Phosphatase (46-116) IU/L Creatine Kinase (26-308) U/L Creatine Kinase Index (0.0-2.5) % CK-MB (CK-2) (0.00-3.60) ng/mL Troponin I (0.000-0.056) ng/mL NT-Pro-B Natriuret Pep (0-125) pg/mL Total Protein (6.4-8.2) g/dL Albumin (3.4-5.0) g/dL Triglycerides (30-150) mg/dL Cholesterol (100-200) mg/dL LDL Cholesterol, Calc (0-100) mg/dL HDL Cholesterol (40-60) mg/dL TSH, Ultra Sensitive (0.358-3.740) mIU/mL 01/04/20 01/04/20 01/04/20 Range/Units 12:39 12:39 16:55 WBC (4.0-10.2) K/uL RBC (3.77-5.09) M/uL Hgb (11.7-15.5) g/dL Hct (34.0-46.0) % MCV (84.0-98.0) fL MCH (28.2-33.3) pg MCHC (31.7-36.0) g/dL RDW (11.2-14.1) % Plt Count (150-350) K/uL Neut % (Auto) (45.0-80.0) % Lymph % (Auto) (10.0-50.0) % [place] % (Auto) (2.0-14.0) % Eos % (Auto) (0.0-5.0) % Baso % (Auto) (0.0-2.0) % Neut # (Auto) (1.40-7.00) K/uL Lymph # (Auto) (0.50-3.50) K/uL [place] # (Auto) (0.00-1.00) K/uL Eos # (Auto) (0.00-0.50) K/uL Baso # (Auto) (0.00-0.20) K/uL PT (9.5-12.0) SEC INR APTT (21.0-31.3) SEC D-Dimer, Quantitative (0-400) ng/mL Sodium 144 (136-145) mmol/L Potassium 4.0 (3.5-5.1) mmol/L Chloride 107 (98-107) mmol/L Carbon Dioxide 28.6 (21.0-32.0) mmol/L BUN 14 (7-18) mg/dL Creatinine 0.75 (0.51-1.17) mg/dL Est Cr Clr Drug Dosing 70.01 mL/min Estimated GFR (MDRD) > 60 mL/min Glucose 91 (74-106) mg/dL Hemoglobin A1c (4.3-5.7) % Lactic Acid 1.1 (0.4-2.0) mmol/L Uric Acid 5.9 (2.6-7.2) mg/dL Calcium 9.3 (8.5-10.1) mg/dL Magnesium 1.8 (1.8-2.4) mg/dL Total Bilirubin 0.4 (0.2-1.0) mg/dL AST 62 H (15-37) U/L ALT 99 H (12-78) U/L Alkaline Phosphatase 55 (46-116) IU/L Creatine Kinase 51 53 (26-308) U/L Creatine Kinase Index 1.8 2.1 (0.0-2.5) % CK-MB (CK-2) 0.90 1.10 (0.00-3.60) ng/mL Troponin I 0.004 0.005 (0.000-0.056) ng/mL NT-Pro-B Natriuret Pep 2124 H (0-125) pg/mL Total Protein 7.7 (6.4-8.2) g/dL Albumin 3.8 (3.4-5.0) g/dL Triglycerides (30-150) mg/dL Cholesterol (100-200) mg/dL LDL Cholesterol, Calc (0-100) mg/dL HDL Cholesterol (40-60) mg/dL TSH, Ultra Sensitive 1.669 (0.358-3.740) mIU/mL 01/04/20 01/05/20 01/05/20 Range/Units 22:55 04:45 04:45 WBC 6.1 (4.0-10.2) K/uL RBC 3.89 (3.77-5.09) M/uL Hgb 12.2 (11.7-15.5) g/dL Hct 37.1 (34.0-46.0) % MCV 95.4 (84.0-98.0) fL MCH 31.4 (28.2-33.3) pg MCHC 32.9 (31.7-36.0) g/dL RDW 14.0 (11.2-14.1) % Plt Count 247 (150-350) K/uL Neut % (Auto) 58.6 (45.0-80.0) % Lymph % (Auto) 28.2 (10.0-50.0) % [place] % (Auto) 9.4 (2.0-14.0) % Eos % (Auto) 3.1 (0.0-5.0) % Baso % (Auto) 0.7 (0.0-2.0) % Neut # (Auto) 3.57 (1.40-7.00) K/uL Lymph # (Auto) 1.72 (0.50-3.50) K/uL [place] # (Auto) 0.57 (0.00-1.00) K/uL Eos # (Auto) 0.19 (0.00-0.50) K/uL Baso # (Auto) 0.04 (0.00-0.20) K/uL PT (9.5-12.0) SEC INR APTT (21.0-31.3) SEC D-Dimer, Quantitative (0-400) ng/mL Sodium 146 H (136-145) mmol/L Potassium 4.2 (3.5-5.1) mmol/L Chloride 109 H (98-107) mmol/L Carbon Dioxide 26.6 (21.0-32.0) mmol/L BUN 15 (7-18) mg/dL Creatinine 0.97 (0.51-1.17) mg/dL Est Cr Clr Drug Dosing 54.13 mL/min Estimated GFR (MDRD) 58 mL/min Glucose 117 H (74-106) mg/dL Hemoglobin A1c (4.3-5.7) % Lactic Acid (0.4-2.0) mmol/L Uric Acid (2.6-7.2) mg/dL Calcium 8.8 (8.5-10.1) mg/dL Magnesium (1.8-2.4) mg/dL Total Bilirubin 0.5 (0.2-1.0) mg/dL AST 56 H (15-37) U/L ALT 86 H (12-78) U/L Alkaline Phosphatase 45 L (46-116) IU/L Creatine Kinase 42 36 (26-308) U/L Creatine Kinase Index 1.7 1.9 (0.0-2.5) % CK-MB (CK-2) 0.70 0.70 (0.00-3.60) ng/mL Troponin I 0.006 0.002 (0.000-0.056) ng/mL NT-Pro-B Natriuret Pep 1942 H (0-125) pg/mL Total Protein 6.7 (6.4-8.2) g/dL Albumin 3.3 L (3.4-5.0) g/dL Triglycerides 90 (30-150) mg/dL Cholesterol 152 (100-200) mg/dL LDL Cholesterol, Calc 87 (0-100) mg/dL HDL Cholesterol 47 (40-60) mg/dL TSH, Ultra Sensitive (0.358-3.740) mIU/mL 01/05/20 Range/Units 04:45 WBC (4.0-10.2) K/uL RBC (3.77-5.09) M/uL Hgb (11.7-15.5) g/dL Hct (34.0-46.0) % MCV (84.0-98.0) fL MCH (28.2-33.3) pg MCHC (31.7-36.0) g/dL RDW (11.2-14.1) % Plt Count (150-350) K/uL Neut % (Auto) (45.0-80.0) % Lymph % (Auto) (10.0-50.0) % [place] % (Auto) (2.0-14.0) % Eos % (Auto) (0.0-5.0) % Baso % (Auto) (0.0-2.0) % Neut # (Auto) (1.40-7.00) K/uL Lymph # (Auto) (0.50-3.50) K/uL [place] # (Auto) (0.00-1.00) K/uL Eos # (Auto) (0.00-0.50) K/uL Baso # (Auto) (0.00-0.20) K/uL PT (9.5-12.0) SEC INR APTT (21.0-31.3) SEC D-Dimer, Quantitative (0-400) ng/mL Sodium (136-145) mmol/L Potassium (3.5-5.1) mmol/L Chloride (98-107) mmol/L Carbon Dioxide (21.0-32.0) mmol/L BUN (7-18) mg/dL Creatinine (0.51-1.17) mg/dL Est Cr Clr Drug Dosing mL/min Estimated GFR (MDRD) mL/min Glucose (74-106) mg/dL Hemoglobin A1c 5.2 (4.3-5.7) % Lactic Acid (0.4-2.0) mmol/L Uric Acid (2.6-7.2) mg/dL Calcium (8.5-10.1) mg/dL Magnesium (1.8-2.4) mg/dL Total Bilirubin (0.2-1.0) mg/dL AST (15-37) U/L ALT (12-78) U/L Alkaline Phosphatase (46-116) IU/L Creatine Kinase (26-308) U/L Creatine Kinase Index (0.0-2.5) % CK-MB (CK-2) (0.00-3.60) ng/mL Troponin I (0.000-0.056) ng/mL NT-Pro-B Natriuret Pep (0-125) pg/mL Total Protein (6.4-8.2) g/dL Albumin (3.4-5.0) g/dL Triglycerides (30-150) mg/dL Cholesterol (100-200) mg/dL LDL Cholesterol, Calc (0-100) mg/dL HDL Cholesterol (40-60) mg/dL TSH, Ultra Sensitive (0.358-3.740) mIU/mL Laboratory Tests 01/04/20 01/04/20 01/04/20 Range/Units 12:39 12:39 12:39 WBC 6.8 (4.0-10.2) K/uL RBC 4.28 (3.77-5.09) M/uL Hgb 13.4 D (11.7-15.5) g/dL Hct 41.0 (34.0-46.0) % MCV 95.8 (84.0-98.0) fL MCH 31.3 (28.2-33.3) pg MCHC 32.7 (31.7-36.0) g/dL RDW 14.0 (11.2-14.1) % Plt Count 269 (150-350) K/uL Neut % (Auto) 38.3 L (45.0-80.0) % Lymph % (Auto) 46.5 (10.0-50.0) % [place] % (Auto) 9.7 (2.0-14.0) % Eos % (Auto) 4.9 (0.0-5.0) % Baso % (Auto) 0.6 (0.0-2.0) % Neut # (Auto) 2.60 (1.40-7.00) K/uL Lymph # (Auto) 3.16 (0.50-3.50) K/uL [place] # (Auto) 0.66 (0.00-1.00) K/uL Eos # (Auto) 0.33 (0.00-0.50) K/uL Baso # (Auto) 0.04 (0.00-0.20) K/uL PT 10.6 (9.5-12.0) SEC INR 1.0 APTT 25.3 (21.0-31.3) SEC D-Dimer, Quantitative 298 (0-400) ng/mL Sodium (136-145) mmol/L Potassium (3.5-5.1) mmol/L Chloride (98-107) mmol/L Carbon Dioxide (21.0-32.0) mmol/L BUN (7-18) mg/dL Creatinine (0.51-1.17) mg/dL Est Cr Clr Drug Dosing mL/min Estimated GFR (MDRD) mL/min Glucose (74-106) mg/dL Hemoglobin A1c (4.3-5.7) % Lactic Acid (0.4-2.0) mmol/L Uric Acid (2.6-7.2) mg/dL Calcium (8.5-10.1) mg/dL Magnesium (1.8-2.4) mg/dL Total Bilirubin (0.2-1.0) mg/dL AST (15-37) U/L ALT (12-78) U/L Alkaline Phosphatase (46-116) IU/L Creatine Kinase (26-308) U/L Creatine Kinase Index (0.0-2.5) % CK-MB (CK-2) (0.00-3.60) ng/mL Troponin I (0.000-0.056) ng/mL NT-Pro-B Natriuret Pep (0-125) pg/mL Total Protein (6.4-8.2) g/dL Albumin (3.4-5.0) g/dL Triglycerides (30-150) mg/dL Cholesterol (100-200) mg/dL LDL Cholesterol, Calc (0-100) mg/dL HDL Cholesterol (40-60) mg/dL TSH, Ultra Sensitive (0.358-3.740) mIU/mL 02/20/20 02/20/20 02/20/20 Range/Units 12:39 12:39 16:55 WBC (4.0-10.2) K/uL RBC (3.77-5.09) M/uL Hgb (11.7-15.5) g/dL Hct (34.0-46.0) % MCV (84.0-98.0) fL MCH (28.2-33.3) pg MCHC (31.7-36.0) g/dL RDW (11.2-14.1) % Plt Count (150-350) K/uL Neut % (Auto) (45.0-80.0) % Lymph % (Auto) (10.0-50.0) % [place] % (Auto) (2.0-14.0) % Eos % (Auto) (0.0-5.0) % Baso % (Auto) (0.0-2.0) % Neut # (Auto) (1.40-7.00) K/uL Lymph # (Auto) (0.50-3.50) K/uL [place] # (Auto) (0.00-1.00) K/uL Eos # (Auto) (0.00-0.50) K/uL Baso # (Auto) (0.00-0.20) K/uL PT (9.5-12.0) SEC INR APTT (21.0-31.3) SEC D-Dimer, Quantitative (0-400) ng/mL Sodium 144 (136-145) mmol/L Potassium 4.0 (3.5-5.1) mmol/L Chloride 107 (98-107) mmol/L Carbon Dioxide 28.6 (21.0-32.0) mmol/L BUN 14 (7-18) mg/dL Creatinine 0.75 (0.51-1.17) mg/dL Est Cr Clr Drug Dosing 70.01 mL/min Estimated GFR (MDRD) > 60 mL/min Glucose 91 (74-106) mg/dL Hemoglobin A1c (4.3-5.7) % Lactic Acid 1.1 (0.4-2.0) mmol/L Uric Acid 5.9 (2.6-7.2) mg/dL Calcium 9.3 (8.5-10.1) mg/dL Magnesium 1.8 (1.8-2.4) mg/dL Total Bilirubin 0.4 (0.2-1.0) mg/dL AST 62 H (15-37) U/L ALT 99 H (12-78) U/L Alkaline Phosphatase 55 (46-116) IU/L Creatine Kinase 51 53 (26-308) U/L Creatine Kinase Index 1.8 2.1 (0.0-2.5) % CK-MB (CK-2) 0.90 1.10 (0.00-3.60) ng/mL Troponin I 0.004 0.005 (0.000-0.056) ng/mL NT-Pro-B Natriuret Pep 2124 H (0-125) pg/mL Total Protein 7.7 (6.4-8.2) g/dL Albumin 3.8 (3.4-5.0) g/dL Triglycerides (30-150) mg/dL Cholesterol (100-200) mg/dL LDL Cholesterol, Calc (0-100) mg/dL HDL Cholesterol (40-60) mg/dL TSH, Ultra Sensitive 1.669 (0.358-3.740) mIU/mL 01/04/20 01/05/20 01/05/20 Range/Units 22:55 04:45 04:45 WBC 6.1 (4.0-10.2) K/uL RBC 3.89 (3.77-5.09) M/uL Hgb 12.2 (11.7-15.5) g/dL Hct 37.1 (34.0-46.0) % MCV 95.4 (84.0-98.0) fL MCH 31.4 (28.2-33.3) pg MCHC 32.9 (31.7-36.0) g/dL RDW 14.0 (11.2-14.1) % Plt Count 247 (150-350) K/uL Neut % (Auto) 58.6 (45.0-80.0) % Lymph % (Auto) 28.2 (10.0-50.0) % [place] % (Auto) 9.4 (2.0-14.0) % Eos % (Auto) 3.1 (0.0-5.0) % Baso % (Auto) 0.7 (0.0-2.0) % Neut # (Auto) 3.57 (1.40-7.00) K/uL Lymph # (Auto) 1.72 (0.50-3.50) K/uL [place] # (Auto) 0.57 (0.00-1.00) K/uL Eos # (Auto) 0.19 (0.00-0.50) K/uL Baso # (Auto) 0.04 (0.00-0.20) K/uL PT (9.5-12.0) SEC INR APTT (21.0-31.3) SEC D-Dimer, Quantitative (0-400) ng/mL Sodium 146 H (136-145) mmol/L Potassium 4.2 (3.5-5.1) mmol/L Chloride 109 H (98-107) mmol/L Carbon Dioxide 26.6 (21.0-32.0) mmol/L BUN 15 (7-18) mg/dL Creatinine 0.97 (0.51-1.17) mg/dL Est Cr Clr Drug Dosing 54.13 mL/min Estimated GFR (MDRD) 58 mL/min Glucose 117 H (74-106) mg/dL Hemoglobin A1c (4.3-5.7) % Lactic Acid (0.4-2.0) mmol/L Uric Acid (2.6-7.2) mg/dL Calcium 8.8 (8.5-10.1) mg/dL Magnesium (1.8-2.4) mg/dL Total Bilirubin 0.5 (0.2-1.0) mg/dL AST 56 H (15-37) U/L ALT 86 H (12-78) U/L Alkaline Phosphatase 45 L (46-116) IU/L Creatine Kinase 42 36 (26-308) U/L Creatine Kinase Index 1.7 1.9 (0.0-2.5) % CK-MB (CK-2) 0.70 0.70 (0.00-3.60) ng/mL Troponin I 0.006 0.002 (0.000-0.056) ng/mL NT-Pro-B Natriuret Pep 1942 H (0-125) pg/mL Total Protein 6.7 (6.4-8.2) g/dL Albumin 3.3 L (3.4-5.0) g/dL Triglycerides 90 (30-150) mg/dL Cholesterol 152 (100-200) mg/dL LDL Cholesterol, Calc 87 (0-100) mg/dL HDL Cholesterol 47 (40-60) mg/dL TSH, Ultra Sensitive (0.358-3.740) mIU/mL 01/05/20 Range/Units 04:45 WBC (4.0-10.2) K/uL RBC (3.77-5.09) M/uL Hgb (11.7-15.5) g/dL Hct (34.0-46.0) % MCV (84.0-98.0) fL MCH (28.2-33.3) pg MCHC (31.7-36.0) g/dL RDW (11.2-14.1) % Plt Count (150-350) K/uL Neut % (Auto) (45.0-80.0) % Lymph % (Auto) (10.0-50.0) % [place] % (Auto) (2.0-14.0) % Eos % (Auto) (0.0-5.0) % Baso % (Auto) (0.0-2.0) % Neut # (Auto) (1.40-7.00) K/uL Lymph # (Auto) (0.50-3.50) K/uL [place] # (Auto) (0.00-1.00) K/uL Eos # (Auto) (0.00-0.50) K/uL Baso # (Auto) (0.00-0.20) K/uL PT (9.5-12.0) SEC INR APTT (21.0-31.3) SEC D-Dimer, Quantitative (0-400) ng/mL Sodium (136-145) mmol/L Potassium (3.5-5.1) mmol/L Chloride (98-107) mmol/L Carbon Dioxide (21.0-32.0) mmol/L BUN (7-18) mg/dL Creatinine (0.51-1.17) mg/dL Est Cr Clr Drug Dosing mL/min Estimated GFR (MDRD) mL/min Glucose (74-106) mg/dL Hemoglobin A1c 5.2 (4.3-5.7) % Lactic Acid (0.4-2.0) mmol/L Uric Acid (2.6-7.2) mg/dL Calcium (8.5-10.1) mg/dL Magnesium (1.8-2.4) mg/dL Total Bilirubin (0.2-1.0) mg/dL AST (15-37) U/L ALT (12-78) U/L Alkaline Phosphatase (46-116) IU/L Creatine Kinase (26-308) U/L Creatine Kinase Index (0.0-2.5) % CK-MB (CK-2) (0.00-3.60) ng/mL Troponin I (0.000-0.056) ng/mL NT-Pro-B Natriuret Pep (0-125) pg/mL Total Protein (6.4-8.2) g/dL Albumin (3.4-5.0) g/dL Triglycerides (30-150) mg/dL Cholesterol (100-200) mg/dL LDL Cholesterol, Calc (0-100) mg/dL HDL Cholesterol (40-60) mg/dL TSH, Ultra Sensitive (0.358-3.740) mIU/mL AARON Results - Last 24 hrs: None Med Orders - Current: Current Medications Acetaminophen (Tylenol) 650 mg PO Q4H PRN PRN Reason: Pain Aspirin (Aspirin) 81 mg PO DAILY [facility] Atorvastatin Calcium (Lipitor) 80 mg PO BEDTIME [facility] Last Admin: 01/04/20 19:27 Dose: 80 mg Clopidogrel Bisulfate (Plavix) 75 mg PO DAILY [facility] Furosemide (Lasix) 40 mg IVPUSH Q8H [facility] Last Admin: 01/04/20 23:14 Dose: 40 mg Sodium Chloride (Normal Saline) 1,000 mls @ 999 mls/hr IV ASDIRECTED [facility] Last Admin: 01/04/20 17:52 Dose: 30 mls/hr Metoprolol Tartrate (Lopressor) 12.5 mg PO BID [facility] Last Admin: 01/04/20 17:46 Dose: 12.5 mg Morphine Sulfate (Morphine) 2 mg IVPUSH Q4H PRN PRN Reason: Chest Pain Last Admin: 01/04/20 17:49 Dose: 2 mg Nitroglycerin (Nitrostat) 0.4 mg SL ONETIME STA Stop: 01/05/20 12:38 Last Admin: 01/04/20 12:41 Dose: 0.4 mg Nitroglycerin (Nitrostat) 0.4 mg SL ONETIME STA Stop: 01/05/20 13:07 Last Admin: 01/04/20 13:08 Dose: 0.4 mg Ondansetron HCl (Zofran) 4 mg IVPUSH Q6H PRN PRN Reason: Nausea/Vomiting Potassium Chloride (Klor-Con M20) 20 meq PO TID [facility] Last Admin: 01/04/20 17:49 Dose: 20 meq Sodium Chloride (Saline Flush) 10 ml FLUSH Q12HR PRN PRN Reason: Keep Vein Open Last Admin: 01/05/20 04:11 Dose: 10 ml Temazepam (Restoril) 15 mg PO BEDTIME PRN PRN Reason: Insomnia Discontinued Medications Al Hydroxide/Mg Hydroxide (Gi Cocktail) 30 ml PO ONETIME ONE Stop: 01/04/20 15:13 Last Admin: 01/04/20 15:41 Dose: 30 ml Aspirin (Aspirin) 324 mg CHEW ONETIME ONE Stop: 01/04/20 12:33 Last Admin: 01/04/20 12:44 Dose: 324 mg Famotidine (Pepcid) 40 mg IVPUSH ONETIME ONE Stop: 01/04/20 12:33 Last Admin: 01/04/20 12:48 Dose: 40 mg Nitroglycerin/Dextrose (Nitroglycerin 25 Mg/D5w 250 Ml) 25 mg in 250 mls @ 3 mls/hr IV TITRATE [facility] Last Infusion: 01/04/20 23:12 Dose: 5 mcg/min, 3 mls/hr Isosorbide Mononitrate (Imdur) 30 mg PO QPM [facility] Morphine Sulfate (Morphine) 2 mg IVPUSH ONETIME ONE Stop: 01/04/20 13:08 Last Admin: 01/04/20 13:11 Dose: 2 mg Ondansetron HCl (Zofran) 4 mg IVPUSH ONETIME ONE Stop: 01/04/20 13:07 Last Admin: 01/04/20 13:10 Dose: 4 mg Sodium Chloride (Saline Flush) 10 ml FLUSH ASDIRECTED PRN PRN Reason: Keep Vein Open Last Admin: 01/04/20 13:12 Dose: 10 ml Ticagrelor (Brilinta) 180 mg PO ONETIME ONE Stop: 01/04/20 12:33 Last Admin: 01/04/20 12:45 Dose: 180 mg - Exam Quality Assessment: Reports: DVT Prophylaxis. Denies: Supplemental Oxygen, Central Line/PICC, Urine Catheter, Skin Breakdown, Restraints General: Reports: Alert, Oriented, Cooperative, No Acute Distress HEENT: Reports: Pupils Equal, Pupils Reactive, EOMI, Mucous Membr. Moist/[place], Other (She is wearing glasses) Neck: Reports: Supple, Trachea Midline, No JVD, No Thyromegaly, +2 Carotid Pulse wo Bruit. Denies: Lymphadenopathy Lungs: Reports: Normal Respiratory Effort, Rales (Mild bilateral basilar). Denies: Rhonchi, Rub, Wheezing Cardiovascular: Reports: Regular Rate, Regular Rhythm, No Murmurs. Denies: Gallops, Rubs GI/Abdominal Exam: Normal Bowel Sounds, Soft, Non-Tender, No Organomegaly, No Distention, No Abnormal Bruit, No Mass, Pelvis Stable. No: Guarding (Female) Exam: Deferred Rectal (Female) Exam: Deferred Back Exam: Reports: Normal Inspection, Full Range of Motion. Denies: CVA Tenderness (L), CVA Tenderness (R), Muscle Spasm Extremities: Normal Inspection, Normal Range of Motion, Non-Tender, No Pedal Edema, Normal Capillary Refill. No: Jeff's Sign Skin: Reports: Warm, Dry, Intact. Denies: Ecchymosis Neurological: Reports: No New Focal Deficit Psy/Mental Status: Reports: Alert, Normal Affect, Normal Mood. Denies: Agitated , Hallucinations, Withdrawal Symptoms EKG INTERPRETATION EKG Date: 01/05/20 Time: 04:26 Rhythm: NSR (Mild bradycardia) Rate (Beats/Min): 57 [place]: Normal (Neutral) P-Wave: Enlarged (Mild diffuse biphasic P waves and poor R-wave progression in the anterior leads) QRS: Normal (0.07 seconds) ST-T: Other (Stable T-wave inversion in leads 1 and aVL with returned T-wave inversions in leads V4 through V6 and new T wave inversion in lead V3 since last EKG on 01/04/20 at 16:49 hours) QT: Prolonged RI/PQ Interval: 0.16 seconds Comparison: Change From Previous EKG (As above) EKG Interpretation Comments: 1. Variable lateral wall cardiac ischemia 2. Sinus bradycardia
[2020-01-05] MEDS ORDERED: Heparin Sodium 5,000 Units/ML Vial IVPUSH ONE (05:57)
[2020-01-05] MEDS ORDERED: Heparin Sodium/D5W 25,000 UNITS/500 ML BAG IV SCH (06:00)
[2020-01-05] MEDS ORDERED: Aspirin 81 MG Tab.Chew PO SCH (08:00)
[2020-01-05] MEDS ORDERED: Clopidogrel 75 MG Tab PO SCH (08:00)
== END 2020-01-05 06:35 ==
LOC: LL.ED 12:29 → LL.MS 14:07 → UNDOADMOB 14:07 → LL.MS 14:41
PROVIDERS: ADMIT Family Medicine; ATTEND Family Medicine
DX: I25.10 Atherosclerotic heart disease of native coronary artery without angina pectoris (principal); I11.0 Hypertensive heart disease with heart failure; I50.9 Heart failure, unspecified; I25.5 Ischemic cardiomyopathy; R94.5 Abnormal results of liver function studies; J43.1 Panlobular emphysema; M15.0 Primary generalized (osteo)arthritis; K21.9 Gastro-esophageal reflux disease without esophagitis; E78.00 Pure hypercholesterolemia, unspecified; I25.2 Old myocardial infarction; K44.9 Diaphragmatic hernia without obstruction or gangrene; F41.8 Other specified anxiety disorders; E53.8 Deficiency of other specified B group vitamins; Z87.891 Personal history of nicotine dependence; Z79.82 Long term (current) use of aspirin; Z79.899 Other long term (current) drug therapy; Z98.61 Coronary angioplasty status; I95.9 Hypotension, unspecified
CPT/HCPCS: 36415; 71045; 80053; 80061; 82550; 82553; 83036; 83605; 83735; 83880; 84443; 84484; 84550; 85025; 85379; 85610; 85730; 93005; 96365; 96366; 96374; 96375; 96376; 99285-25; A9270-GY; G0378; J1644; J1940; J2270; J2405; J3490; J7030

== ENCOUNTER 2020-04-25 11:38 | Emergency (ER) | payer MEDICARE, OTHER ==
[2020-04-25] MEDS ORDERED: Nitroglycerin 0.4 MG Tab.SL SL PRN (11:47)
[2020-04-25 12:14] LABS: CHLORIDE,CL 106 mmol/L (98-107); SODIUM,NA 145 mmol/L (136-145)
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
== END 2020-04-25 13:07 | disposition home or self-care (01) ==
LOC: LL.ED 11:38
DX: I25.118 Atherosclerotic heart disease of native coronary artery with other forms of angina pectoris (principal); I25.10 Atherosclerotic heart disease of native coronary artery without angina pectoris; E78.00 Pure hypercholesterolemia, unspecified; I11.0 Hypertensive heart disease with heart failure; I50.9 Heart failure, unspecified; Z95.5 Presence of coronary angioplasty implant and graft; J44.9 Chronic obstructive pulmonary disease, unspecified; K21.9 Gastro-esophageal reflux disease without esophagitis; M19.90 Unspecified osteoarthritis, unspecified site; M41.9 Scoliosis, unspecified; F41.9 Anxiety disorder, unspecified; F32.9 Major depressive disorder, single episode, unspecified; Z88.2 Allergy status to sulfonamides; Z88.8 Allergy status to other drugs, medicaments and biological substances; Z79.82 Long term (current) use of aspirin; Z79.02 Long term (current) use of antithrombotics/antiplatelets; Z79.899 Other long term (current) drug therapy
CPT/HCPCS: 36415; 71045; 80053; 84484; 85025; 93005; 99285; A9270

== ENCOUNTER 2020-08-07 15:05 | Emergency (ER) | payer MEDICARE, OTHER ==
[2020-08-07] MEDS ORDERED: Nitroglycerin 0.4 MG Tab.SL SL ONE (15:10)
[2020-08-07] MEDS ORDERED: Nitroglycerin 0.4 MG Tab.SL ONE (15:12)
[2020-08-07] MEDS ORDERED: Sodium Chloride 0.9% 10 ML Syringe FLUSH PRN (15:14)
[2020-08-07 15:37] LABS: CHLORIDE,CL 103 mmol/L (98-107); SODIUM,NA 139 mmol/L (136-145)
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
== END 2020-08-07 17:05 | disposition home or self-care (01) ==
LOC: LL.ED 15:05
DX: I25.119 Atherosclerotic heart disease of native coronary artery with unspecified angina pectoris (principal); I25.10 Atherosclerotic heart disease of native coronary artery without angina pectoris; E78.00 Pure hypercholesterolemia, unspecified; I11.0 Hypertensive heart disease with heart failure; I50.9 Heart failure, unspecified; J44.9 Chronic obstructive pulmonary disease, unspecified; M19.90 Unspecified osteoarthritis, unspecified site; F41.9 Anxiety disorder, unspecified; F32.9 Major depressive disorder, single episode, unspecified; Z87.891 Personal history of nicotine dependence; Z88.2 Allergy status to sulfonamides; Z88.8 Allergy status to other drugs, medicaments and biological substances; Z79.82 Long term (current) use of aspirin; Z79.02 Long term (current) use of antithrombotics/antiplatelets; Z79.899 Other long term (current) drug therapy; Z95.5 Presence of coronary angioplasty implant and graft
CPT/HCPCS: 36415; 80053; 84484; 85025; 93005; 99283; 99285-25; A9270-GY

== ENCOUNTER 2020-12-27 07:10 | Emergency (ER) | payer MEDICARE, OTHER ==
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
== END 2020-12-27 08:40 | disposition home or self-care (01) ==
LOC: LL.ED 07:10
DX: R04.2 Hemoptysis (principal); I25.10 Atherosclerotic heart disease of native coronary artery without angina pectoris; E78.00 Pure hypercholesterolemia, unspecified; I11.0 Hypertensive heart disease with heart failure; I50.9 Heart failure, unspecified; J44.9 Chronic obstructive pulmonary disease, unspecified; K21.9 Gastro-esophageal reflux disease without esophagitis; M19.90 Unspecified osteoarthritis, unspecified site; M41.9 Scoliosis, unspecified; Z87.891 Personal history of nicotine dependence; Z95.5 Presence of coronary angioplasty implant and graft; Z79.899 Other long term (current) drug therapy; Z79.82 Long term (current) use of aspirin; Z98.890 Other specified postprocedural states; Z91.030 Bee allergy status; Z88.2 Allergy status to sulfonamides; Z88.8 Allergy status to other drugs, medicaments and biological substances; Z79.02 Long term (current) use of antithrombotics/antiplatelets
CPT/HCPCS: 36415; 71045; 85025; 99283; 99283-25

== ENCOUNTER 2021-05-10 11:28 | Observation (INO) | payer MEDICARE, OTHER ==
[2021-05-10] MEDS ORDERED: Aspirin 81 MG Tab.Chew ONE (11:32)
[2021-05-10] MEDS ORDERED: Nitroglycerin 0.4 MG Tab.SL ONE (11:33)
[2021-05-10] MEDS: Nitroglycerin 0.4 MG Tab.SL SL PRN ×3 (11:35→12:31)
[2021-05-10] MEDS ORDERED: Aspirin 81 MG Tab.Chew PO ONE (11:47)
[2021-05-10] MEDS ORDERED: Sodium Chloride 0.9% 10 ML Syringe FLUSH PRN (11:48)
[2021-05-10] MEDS ORDERED: Morphine 2 MG/ML SYRINGE IVPUSH ONE (13:24)
[2021-05-10] MEDS ORDERED: Ondansetron 4 MG/2 ML SDV IVPUSH ONE (13:25)
[2021-05-10] MEDS ORDERED: Acetaminophen 325 MG Tab PO PRN (14:55)
[2021-05-10] MEDS ORDERED: Gabapentin 100 MG Cap PO PRN (14:58)
[2021-05-10] MEDS ORDERED: Nitroglycerin 0.4 MG Tab.SL SL PRN (14:58)
[2021-05-10] MEDS ORDERED: oxyCODONE 5 MG Tab PO PRN (14:58)
[2021-05-10] MEDS ORDERED: Ketorolac 15 MG/ML SDV IM ONE (15:02)
[2021-05-10] MEDS ORDERED: Ketorolac 15 MG/ML SDV IVPUSH ONE (15:50)
[2021-05-10] MEDS ORDERED: LORazepam 2 MG/ML SDV IVPUSH ONE (15:59)
--- NOTE | 2021-05-10 16:15 | EDM.PDOC ---
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 Follow up with [facility] Cardiology [phone] needed if there [id number]
[2021-05-10] MEDS ORDERED: Non-Formulary Medication 1 Each (Losartan [Cozaar] 25 MG Tablet) PO SCH (20:00)
[2021-05-10] MEDS: atorvaSTATin 40 MG Tab PO SCH (20:11)
[2021-05-10] MEDS: Losartan 50 MG Tab PO SCH (20:12)
[2021-05-11] MEDS ORDERED: GI Cocktail Oral Solution 30 ML PO ONE (08:18)
[2021-05-11] MEDS: Pantoprazole 40 MG Tab.CR PO SCH (08:21)
[2021-05-11] MEDS: Clopidogrel 75 MG Tab PO SCH (08:21)
[2021-05-11] MEDS: Furosemide 40 MG Tab PO SCH (08:21)
[2021-05-11] MEDS: Fluticasone Propionate Nasal Spray 16 GM Bottle NASBOTH SCH (08:23)
[2021-05-11 09:28] LABS: HEMOGLOBIN A1C 6.1 % (4.3-5.7)
--- NOTE | 2021-05-11 10:50 | PCM.PN ---
- General Info Date of Service: 05/11/21 Admission Dx/Problem (Free Text): Admitted for continued workup of chest pain, bradycardia, intermittent SOB associated with bradycardia. Subjective Update: Patient feeling better. Says she is not feeling any 'fluttering' in left lower chest. She did not complain of that yesterday during ROS. Still with intermittent discomfort left lower chest/left upper abdomen border. SOB sensation resolved. Functional Status: Reports: Pain Controlled, Tolerating Diet, Ambulating, Urinating - Review of Systems General: Reports: No Symptoms HEENT: Reports: No Symptoms Pulmonary: Reports: No Symptoms Cardiovascular: Reports: Other (left lower chest discomfort at lower rib border. ) Gastrointestinal: Denies: Constipation, Decreased Appetite, Diarrhea, Difficulty Swallowing, Flatus, Hematochezia, Melena, Nausea, Vomiting Genitourinary: Reports: No Symptoms Musculoskeletal: Reports: Other (no acute changes from baseline) Skin: Reports: No Symptoms Neurological: Reports: No Symptoms Psychiatric: Reports: No Symptoms - Patient Data Vitals - Most Recent: Last Vital Signs Temp 36.3 C 05/11/21 07:58 Pulse 60 05/11/21 07:58 Resp 18 05/11/21 07:58 BP 120/76 05/11/21 07:58 Pulse Ox 99 05/11/21 07:58 Weight - Most Recent: 78.471 kg I&O - Last 24 Hours: Intake & Output 05/10/21 05/11/21 05/11/21 22:59 06:59 14:59 Intake Total 720 Output Total 350 Balance 370 Lab Results Last 24 Hours: Laboratory Results - last 24 hr 05/10/21 05/10/21 05/10/21 Range/Units 11:40 11:40 11:40 WBC 7.5 (4.0-10.2) K/uL RBC 4.51 (3.77-5.09) M/uL Hgb 14.0 (11.7-15.5) g/dL Hct 42.3 (34.0-46.0) % MCV 93.8 (84.0-98.0) fL MCH 31.0 (28.2-33.3) pg MCHC 33.1 (31.7-36.0) g/dL RDW 13.1 (11.2-14.1) % Plt Count 254 (150-350) K/uL Neut % (Auto) 43.8 L (45.0-80.0) % Lymph % (Auto) 44.9 (10.0-50.0) % Spencer % (Auto) 7.4 (2.0-14.0) % Eos % (Auto) 3.6 (0.0-5.0) % Baso % (Auto) 0.3 (0.0-2.0) % Neut # (Auto) 3.29 (1.40-7.00) K/uL Lymph # (Auto) 3.38 (0.50-3.50) K/uL Spencer # (Auto) 0.56 (0.00-1.00) K/uL Eos # (Auto) 0.27 (0.00-0.50) K/uL Baso # (Auto) 0.02 (0.00-0.20) K/uL D-Dimer, Quantitative (0-400) ng/mL Sodium 143 (136-145) mmol/L Potassium 4.3 (3.5-5.1) mmol/L Chloride 108 H (98-107) mmol/L Carbon Dioxide 25.8 (21.0-32.0) mmol/L BUN 13 (7-18) mg/dL Creatinine 0.95 (0.51-1.17) mg/dL Est Cr Clr Drug Dosing 49.62 mL/min Estimated GFR (MDRD) 59 mL/min Glucose 100 H (70-99) mg/dL Hemoglobin A1c (4.3-5.7) % Lactic Acid 1.2 (0.4-2.0) mmol/L Calcium 9.0 (8.5-10.1) mg/dL Magnesium 1.9 (1.8-2.4) mg/dL Total Bilirubin 0.5 (0.2-1.0) mg/dL AST 65 H (15-37) U/L ALT 88 H (12-78) U/L Alkaline Phosphatase 57 (46-116) IU/L Troponin I 0.000 (0.000-0.056) ng/mL NT-Pro-B Natriuret Pep 1020 H (0-125) pg/mL Total Protein 7.1 (6.4-8.2) g/dL Albumin 3.4 (3.4-5.0) g/dL TSH, Ultra Sensitive (0.358-3.740) mIU/mL Specimen Type Urine Color Urine Appearance Urine pH (5.0-9.0) Ur Specific [place] (1.005-1.030) Urine Protein (NEGATIVE) mg/dL Urine Glucose (UA) (NEGATIVE) mg/dL Urine Ketones (NEGATIVE) mg/dL Urine Occult Blood (NEGATIVE) Urine Nitrite (NEGATIVE) Urine Bilirubin (NEGATIVE) Urine Urobilinogen (0.2-1.0) E.U./dL Ur Leukocyte Esterase (NEGATIVE) Urine RBC /HPF Urine WBC /HPF Ur Epithelial Cells /LPF Urine Bacteria (NONE TO FEW) /HPF 05/10/21 05/10/21 05/10/21 Range/Units 11:40 11:40 12:05 WBC (4.0-10.2) K/uL RBC (3.77-5.09) M/uL Hgb (11.7-15.5) g/dL Hct (34.0-46.0) % MCV (84.0-98.0) fL MCH (28.2-33.3) pg MCHC (31.7-36.0) g/dL RDW (11.2-14.1) % Plt Count (150-350) K/uL Neut % (Auto) (45.0-80.0) % Lymph % (Auto) (10.0-50.0) % Spencer % (Auto) (2.0-14.0) % Eos % (Auto) (0.0-5.0) % Baso % (Auto) (0.0-2.0) % Neut # (Auto) (1.40-7.00) K/uL Lymph # (Auto) (0.50-3.50) K/uL [place] # (Auto) (0.00-1.00) K/uL Eos # (Auto) (0.00-0.50) K/uL Baso # (Auto) (0.00-0.20) K/uL D-Dimer, Quantitative 198 (0-400) ng/mL Sodium (136-145) mmol/L Potassium (3.5-5.1) mmol/L Chloride (98-107) mmol/L Carbon Dioxide (21.0-32.0) mmol/L BUN (7-18) mg/dL Creatinine (0.51-1.17) mg/dL Est Cr Clr Drug Dosing mL/min Estimated GFR (MDRD) mL/min Glucose (70-99) mg/dL Hemoglobin A1c (4.3-5.7) % Lactic Acid (0.4-2.0) mmol/L Calcium (8.5-10.1) mg/dL Magnesium (1.8-2.4) mg/dL Total Bilirubin (0.2-1.0) mg/dL AST (15-37) U/L ALT (12-78) U/L Alkaline Phosphatase (46-116) IU/L Troponin I (0.000-0.056) ng/mL NT-Pro-B Natriuret Pep (0-125) pg/mL Total Protein (6.4-8.2) g/dL Albumin (3.4-5.0) g/dL TSH, Ultra Sensitive 1.740 (0.358-3.740) mIU/mL Specimen Type Urinblad Urine Color Yellow Urine Appearance Clear Urine pH 5.5 (5.0-9.0) Ur Specific [place] 1.010 (1.005-1.030) Urine Protein Negative (NEGATIVE) mg/dL Urine Glucose (UA) Negative (NEGATIVE) mg/dL Urine Ketones Negative (NEGATIVE) mg/dL Urine Occult Blood Negative (NEGATIVE) Urine Nitrite Negative (NEGATIVE) Urine Bilirubin Negative (NEGATIVE) Urine Urobilinogen 0.2 (0.2-1.0) E.U./dL Ur Leukocyte Esterase Negative (NEGATIVE) Urine RBC Not seen /HPF Urine WBC Not seen /HPF Ur Epithelial Cells Rare /LPF Urine Bacteria Not seen (NONE TO FEW) /HPF 05/10/21 05/11/21 05/11/21 Range/Units 17:43 08:00 08:00 WBC 5.6 (4.0-10.2) K/uL RBC 4.17 (3.77-5.09) M/uL Hgb 12.9 (11.7-15.5) g/dL Hct 39.8 (34.0-46.0) % MCV 95.4 (84.0-98.0) fL MCH 30.9 (28.2-33.3) pg MCHC 32.4 (31.7-36.0) g/dL RDW 13.1 (11.2-14.1) % Plt Count 208 (150-350) K/uL Neut % (Auto) 45.7 (45.0-80.0) % Lymph % (Auto) 42.5 (10.0-50.0) % Spencer % (Auto) 8.4 (2.0-14.0) % Eos % (Auto) 3.0 (0.0-5.0) % Baso % (Auto) 0.4 (0.0-2.0) % Neut # (Auto) 2.57 (1.40-7.00) K/uL Lymph # (Auto) 2.39 (0.50-3.50) K/uL Spencer # (Auto) 0.47 (0.00-1.00) K/uL Eos # (Auto) 0.17 (0.00-0.50) K/uL Baso # (Auto) 0.02 (0.00-0.20) K/uL D-Dimer, Quantitative (0-400) ng/mL Sodium 145 (136-145) mmol/L Potassium 4.2 (3.5-5.1) mmol/L Chloride 109 H (98-107) mmol/L Carbon Dioxide 26.5 (21.0-32.0) mmol/L BUN 18 (7-18) mg/dL Creatinine 1.05 (0.51-1.17) mg/dL Est Cr Clr Drug Dosing 44.90 mL/min Estimated GFR (MDRD) 52 mL/min Glucose 113 H (70-99) mg/dL Hemoglobin A1c (4.3-5.7) % Lactic Acid (0.4-2.0) mmol/L Calcium 8.7 (8.5-10.1) mg/dL Magnesium (1.8-2.4) mg/dL Total Bilirubin 0.5 (0.2-1.0) mg/dL AST 59 H (15-37) U/L ALT 80 H (12-78) U/L Alkaline Phosphatase 48 (46-116) IU/L Troponin I 0.000 0.013 (0.000-0.056) ng/mL NT-Pro-B Natriuret Pep (0-125) pg/mL Total Protein 6.2 L (6.4-8.2) g/dL Albumin 2.9 L (3.4-5.0) g/dL TSH, Ultra Sensitive (0.358-3.740) mIU/mL Specimen Type Urine Color Urine Appearance Urine pH (5.0-9.0) Ur Specific [place] (1.005-1.030) Urine Protein (NEGATIVE) mg/dL Urine Glucose (UA) (NEGATIVE) mg/dL Urine Ketones (NEGATIVE) mg/dL Urine Occult Blood (NEGATIVE) Urine Nitrite (NEGATIVE) Urine Bilirubin (NEGATIVE) Urine Urobilinogen (0.2-1.0) E.U./dL Ur Leukocyte Esterase (NEGATIVE) Urine RBC /HPF Urine WBC /HPF Ur Epithelial Cells /LPF Urine Bacteria (NONE TO FEW) /HPF 05/11/21 Range/Units 08:00 WBC (4.0-10.2) K/uL RBC (3.77-5.09) M/uL Hgb (11.7-15.5) g/dL Hct (34.0-46.0) % MCV (84.0-98.0) fL MCH (28.2-33.3) pg MCHC (31.7-36.0) g/dL RDW (11.2-14.1) % Plt Count (150-350) K/uL Neut % (Auto) (45.0-80.0) % Lymph % (Auto) (10.0-50.0) % [place] % (Auto) (2.0-14.0) % Eos % (Auto) (0.0-5.0) % Baso % (Auto) (0.0-2.0) % Neut # (Auto) (1.40-7.00) K/uL Lymph # (Auto) (0.50-3.50) K/uL [place] # (Auto) (0.00-1.00) K/uL Eos # (Auto) (0.00-0.50) K/uL Baso # (Auto) (0.00-0.20) K/uL D-Dimer, Quantitative (0-400) ng/mL Sodium (136-145) mmol/L Potassium (3.5-5.1) mmol/L Chloride (98-107) mmol/L Carbon Dioxide (21.0-32.0) mmol/L BUN (7-18) mg/dL Creatinine (0.51-1.17) mg/dL Est Cr Clr Drug Dosing mL/min Estimated GFR (MDRD) mL/min Glucose (70-99) mg/dL Hemoglobin A1c 6.1 H (4.3-5.7) % Lactic Acid (0.4-2.0) mmol/L Calcium (8.5-10.1) mg/dL Magnesium (1.8-2.4) mg/dL Total Bilirubin (0.2-1.0) mg/dL AST (15-37) U/L ALT (12-78) U/L Alkaline Phosphatase (46-116) IU/L Troponin I (0.000-0.056) ng/mL NT-Pro-B Natriuret Pep (0-125) pg/mL Total Protein (6.4-8.2) g/dL Albumin (3.4-5.0) g/dL TSH, Ultra Sensitive (0.358-3.740) mIU/mL Specimen Type Urine Color Urine Appearance Urine pH (5.0-9.0) Ur Specific [place] (1.005-1.030) Urine Protein (NEGATIVE) mg/dL Urine Glucose (UA) (NEGATIVE) mg/dL Urine Ketones (NEGATIVE) mg/dL Urine Occult Blood (NEGATIVE) Urine Nitrite (NEGATIVE) Urine Bilirubin (NEGATIVE) Urine Urobilinogen (0.2-1.0) E.U./dL Ur Leukocyte Esterase (NEGATIVE) Urine RBC /HPF Urine WBC /HPF Ur Epithelial Cells /LPF Urine Bacteria (NONE TO FEW) /HPF Med Orders - Current: Current Medications Acetaminophen (Acetaminophen 325 Mg Tab) 650 mg PO Q4H PRN PRN Reason: Pain (Mild 1-3)/fever Atorvastatin Calcium (Atorvastatin 40 Mg Tab) 80 mg PO BEDTIME [facility] Last Admin: 05/10/21 20:11 Dose: 80 mg Documented by: Clopidogrel Bisulfate (Clopidogrel 75 Mg Tab) 75 mg PO DAILY [facility] Last Admin: 05/11/21 08:21 Dose: 75 mg Documented by: Fluticasone Propionate (Fluticasone Propionate Nasal [place] 16 Gm Bottle) 0 gm NASBOTH DAILY [facility] Last Admin: 05/11/21 08:23 Dose: 1 spray Documented by: Furosemide (Furosemide 40 Mg Tab) 20 mg PO DAILY [facility] Last Admin: 05/11/21 08:21 Dose: 20 mg Documented by: Gabapentin (Gabapentin 100 Mg Cap) 200 mg PO BID PRN PRN Reason: Pain Losartan Potassium (Losartan 50 Mg Tab) 125 mg PO BEDTIME [facility] Last Admin: 05/10/21 20:12 Dose: 125 mg Documented by: Nitroglycerin (Nitroglycerin 0.4 Mg Tab.Sl) 0.4 mg SL ASDIRECTED PRN PRN Reason: Chest Pain Oxycodone HCl (Oxycodone 5 Mg Tab) 5 mg PO Q6HR PRN PRN Reason: pain Pantoprazole Sodium (Pantoprazole 40 Mg Tab.Cr) 40 mg PO DAILY [facility] Last Admin: 05/11/21 08:21 Dose: 40 mg Documented by: Senna/Docusate Sodium (Docusate Sodium/Sennosides 50-8.6 Mg Tab) 1 tab PO DAILY PRN PRN Reason: constipation Sodium Chloride (Sodium Chloride 0.9% 10 Ml Syringe) 10 ml FLUSH ASDIRECTED PRN PRN Reason: Keep Vein Open Last Admin: 05/10/21 13:50 Dose: 10 ml Documented by: Discontinued Medications Al Hydroxide/Mg Hydroxide (Gi Cocktail Oral Solution 30 Ml) 30 ml PO ONETIME ONE Stop: 05/11/21 08:19 Last Admin: 05/11/21 08:51 Dose: 30 ml Documented by: Aspirin (Aspirin 81 Mg Tab.Chew) Confirm Administered Dose 324 mg .ROUTE .STK- MED ONE Stop: 05/10/21 11:33 Last Admin: 05/10/21 11:47 Dose: Not Given Documented by: Aspirin (Aspirin 81 Mg Tab.Chew) 324 mg PO ONETIME ONE Stop: 05/10/21 11:48 Last Admin: 05/10/21 11:52 Dose: Not Given Documented by: Ketorolac Tromethamine (Ketorolac 15 Mg/Ml Sdv) 15 mg IM ONETIME ONE Stop: 05/10/21 15:03 Last Admin: 05/10/21 19:47 Dose: Not Given Documented by: Ketorolac Tromethamine (Ketorolac 15 Mg/Ml Sdv) 15 mg IVPUSH ONETIME ONE Stop: 05/10/21 15:51 Last Admin: 05/10/21 15:51 Dose: 15 mg Documented by: Lorazepam (Lorazepam 2 Mg/Ml Sdv) 0.5 mg IVPUSH ONETIME ONE Stop: 05/10/21 16:00 Last Admin: 05/10/21 17:35 Dose: 0.5 mg Documented by: Morphine Sulfate (Morphine 2 Mg/Ml Syringe) 2 mg IVPUSH ONETIME ONE Stop: 05/10/21 13:25 Last Admin: 05/10/21 13:48 Dose: 2 mg Documented by: Nitroglycerin (Nitroglycerin 0.4 Mg Tab.Sl) Confirm Administered Dose 0.4 mg .ROUTE .STK-MED ONE Stop: 05/10/21 11:34 Last Admin: 05/10/21 11:53 Dose: Not Given Documented by: Nitroglycerin (Nitroglycerin 0.4 Mg Tab.Sl) 0.4 mg SL Q5M PRN PRN Reason: Chest Pain Last Admin: 05/10/21 12:31 Dose: 0.4 mg Documented by: Non-Formulary Medication (Losartan [Cozaar]) 25 mg PO BEDTIME ESTER Ondansetron HCl (Ondansetron 4 Mg/2 Ml Sdv) 4 mg IVPUSH ONETIME ONE Stop: 05/10/21 13:26 Last Admin: 05/10/21 13:48 Dose: 4 mg Documented by: - Exam General: Alert, Oriented, Cooperative, No Acute Distress HEENT: Pupils Equal, Pupils Reactive, EOMI, Mucous Membr. Moist/[employer] Neck: Supple Lungs: Clear to Auscultation, Normal Respiratory Effort Cardiovascular: Regular Rate, Regular Rhythm GI/Abdominal Exam: Normal Bowel Sounds, Soft, Non-Tender, No Distention, No Abnormal Bruit (Female) Exam: Deferred Back Exam: No: CVA Tenderness (L), CVA Tenderness (R), Muscle Spasm Extremities: Normal Inspection, Normal Capillary Refill Skin: Warm, Dry, Intact Neurological: No New Focal Deficit Psy/Mental Status: Alert, Normal Affect, Normal Mood #1 Interpretation EKG Date: 05/11/21 Time: 07:14 Rhythm: NSR Rate (Beats/Min): 63 [place]: Normal P-Wave: Present QRS: Normal ST-T: Normal QT: Normal Comparison: No Change - Patient Data Lab Results Last 24 hrs: Laboratory Results - last 24 hr 05/10/21 05/10/2121 Range/Units 11:40 11:40 11:40 WBC 7.5 (4.0-10.2) K/uL RBC 4.51 (3.77-5.09) M/uL Hgb 14.0 (11.7-15.5) g/dL Hct 42.3 (34.0-46.0) % MCV 93.8 (84.0-98.0) fL MCH 31.0 (28.2-33.3) pg MCHC 33.1 (31.7-36.0) g/dL RDW 13.1 (11.2-14.1) % Plt Count 254 (150-350) K/uL Neut % (Auto) 43.8 L (45.0-80.0) % Lymph % (Auto) 44.9 (10.0-50.0) % [place] % (Auto) 7.4 (2.0-14.0) % Eos % (Auto) 3.6 (0.0-5.0) % Baso % (Auto) 0.3 (0.0-2.0) % Neut # (Auto) 3.29 (1.40-7.00) K/uL Lymph # (Auto) 3.38 (0.50-3.50) K/uL [place] # (Auto) 0.56 (0.00-1.00) K/uL Eos # (Auto) 0.27 (0.00-0.50) K/uL Baso # (Auto) 0.02 (0.00-0.20) K/uL D-Dimer, Quantitative (0-400) ng/mL Sodium 143 (136-145) mmol/L Potassium 4.3 (3.5-5.1) mmol/L Chloride 108 H (98-107) mmol/L Carbon Dioxide 25.8 (21.0-32.0) mmol/L BUN 13 (7-18) mg/dL Creatinine 0.95 (0.51-1.17) mg/dL Est Cr Clr Drug Dosing 49.62 mL/min Estimated GFR (MDRD) 59 mL/min Glucose 100 H (70-99) mg/dL Hemoglobin A1c (4.3-5.7) % Lactic Acid 1.2 (0.4-2.0) mmol/L Calcium 9.0 (8.5-10.1) mg/dL Magnesium 1.9 (1.8-2.4) mg/dL Total Bilirubin 0.5 (0.2-1.0) mg/dL AST 65 H (15-37) U/L ALT 88 H (12-78) U/L Alkaline Phosphatase 57 (46-116) IU/L Troponin I 0.000 (0.000-0.056) ng/mL NT-Pro-B Natriuret Pep 1020 H (0-125) pg/mL Total Protein 7.1 (6.4-8.2) g/dL Albumin 3.4 (3.4-5.0) g/dL TSH, Ultra Sensitive (0.358-3.740) mIU/mL Specimen Type Urine Color Urine Appearance Urine pH (5.0-9.0) Ur Specific [place] (1.005-1.030) Urine Protein (NEGATIVE) mg/dL Urine Glucose (UA) (NEGATIVE) mg/dL Urine Ketones (NEGATIVE) mg/dL Urine Occult Blood (NEGATIVE) Urine Nitrite (NEGATIVE) Urine Bilirubin (NEGATIVE) Urine Urobilinogen (0.2-1.0) E.U./dL Ur Leukocyte Esterase (NEGATIVE) Urine RBC /HPF Urine WBC /HPF Ur Epithelial Cells /LPF Urine Bacteria (NONE TO FEW) /HPF 05/10/21 05/10/21 05/10/21 Range/Units 11:40 11:40 12:05 WBC (4.0-10.2) K/uL RBC (3.77-5.09) M/uL Hgb (11.7-15.5) g/dL Hct (34.0-46.0) % MCV (84.0-98.0) fL MCH (28.2-33.3) pg MCHC (31.7-36.0) g/dL RDW (11.2-14.1) % Plt Count (150-350) K/uL Neut % (Auto) (45.0-80.0) % Lymph % (Auto) (10.0-50.0) % [place] % (Auto) (2.0-14.0) % Eos % (Auto) (0.0-5.0) % Baso % (Auto) (0.0-2.0) % Neut # (Auto) (1.40-7.00) K/uL Lymph # (Auto) (0.50-3.50) K/uL [place] # (Auto) (0.00-1.00) K/uL Eos # (Auto) (0.00-0.50) K/uL Baso # (Auto) (0.00-0.20) K/uL D-Dimer, Quantitative 198 (0-400) ng/mL Sodium (136-145) mmol/L Potassium (3.5-5.1) mmol/L Chloride (98-107) mmol/L Carbon Dioxide (21.0-32.0) mmol/L BUN (7-18) mg/dL Creatinine (0.51-1.17) mg/dL Est Cr Clr Drug Dosing mL/min Estimated GFR (MDRD) mL/min Glucose (70-99) mg/dL Hemoglobin A1c (4.3-5.7) % Lactic Acid (0.4-2.0) mmol/L Calcium (8.5-10.1) mg/dL Magnesium (1.8-2.4) mg/dL Total Bilirubin (0.2-1.0) mg/dL AST (15-37) U/L ALT (12-78) U/L Alkaline Phosphatase (46-116) IU/L Troponin I (0.000-0.056) ng/mL NT-Pro-B Natriuret Pep (0-125) pg/mL Total Protein (6.4-8.2) g/dL Albumin (3.4-5.0) g/dL TSH, Ultra Sensitive 1.740 (0.358-3.740) mIU/mL Specimen Type Urinblad Urine Color Yellow Urine Appearance Clear Urine pH 5.5 (5.0-9.0) Ur Specific [place] 1.010 (1.005-1.030) Urine Protein Negative (NEGATIVE) mg/dL Urine Glucose (UA) Negative (NEGATIVE) mg/dL Urine Ketones Negative (NEGATIVE) mg/dL Urine Occult Blood Negative (NEGATIVE) Urine Nitrite Negative (NEGATIVE) Urine Bilirubin Negative (NEGATIVE) Urine Urobilinogen 0.2 (0.2-1.0) E.U./dL Ur Leukocyte Esterase Negative (NEGATIVE) Urine RBC Not seen /HPF Urine WBC Not seen /HPF Ur Epithelial Cells Rare /LPF Urine Bacteria Not seen (NONE TO FEW) /HPF 05/10/21 05/11/21 05/11/21 Range/Units 17:43 08:00 08:00 WBC 5.6 (4.0-10.2) K/uL RBC 4.17 (3.77-5.09) M/uL Hgb 12.9 (11.7-15.5) g/dL Hct 39.8 (34.0-46.0) % MCV 95.4 (84.0-98.0) fL MCH 30.9 (28.2-33.3) pg MCHC 32.4 (31.7-36.0) g/dL RDW 13.1 (11.2-14.1) % Plt Count 208 (150-350) K/uL Neut % (Auto) 45.7 (45.0-80.0) % Lymph % (Auto) 42.5 (10.0-50.0) % [place] % (Auto) 8.4 (2.0-14.0) % Eos % (Auto) 3.0 (0.0-5.0) % Baso % (Auto) 0.4 (0.0-2.0) % Neut # (Auto) 2.57 (1.40-7.00) K/uL Lymph # (Auto) 2.39 (0.50-3.50) K/uL [place] # (Auto) 0.47 (0.00-1.00) K/uL Eos # (Auto) 0.17 (0.00-0.50) K/uL Baso # (Auto) 0.02 (0.00-0.20) K/uL D-Dimer, Quantitative (0-400) ng/mL Sodium 145 (136-145) mmol/L Potassium 4.2 (3.5-5.1) mmol/L Chloride 109 H (98-107) mmol/L Carbon Dioxide 26.5 (21.0-32.0) mmol/L BUN 18 (7-18) mg/dL Creatinine 1.05 (0.51-1.17) mg/dL Est Cr Clr Drug Dosing 44.90 mL/min Estimated GFR (MDRD) 52 mL/min Glucose 113 H (70-99) mg/dL Hemoglobin A1c (4.3-5.7) % Lactic Acid (0.4-2.0) mmol/L Calcium 8.7 (8.5-10.1) mg/dL Magnesium (1.8-2.4) mg/dL Total Bilirubin 0.5 (0.2-1.0) mg/dL AST 59 H (15-37) U/L ALT 80 H (12-78) U/L Alkaline Phosphatase 48 (46-116) IU/L Troponin I 0.000 0.013 (0.000-0.056) ng/mL NT-Pro-B Natriuret Pep (0-125) pg/mL Total Protein 6.2 L (6.4-8.2) g/dL Albumin 2.9 L (3.4-5.0) g/dL TSH, Ultra Sensitive (0.358-3.740) mIU/mL Specimen Type Urine Color Urine Appearance Urine pH (5.0-9.0) Ur Specific [place] (1.005-1.030) Urine Protein (NEGATIVE) mg/dL Urine Glucose (UA) (NEGATIVE) mg/dL Urine Ketones (NEGATIVE) mg/dL Urine Occult Blood (NEGATIVE) Urine Nitrite (NEGATIVE) Urine Bilirubin (NEGATIVE) Urine Urobilinogen (0.2-1.0) E.U./dL Ur Leukocyte Esterase (NEGATIVE) Urine RBC /HPF Urine WBC /HPF Ur Epithelial Cells /LPF Urine Bacteria (NONE TO FEW) /HPF 05/11/21 Range/Units 08:00 WBC (4.0-10.2) K/uL RBC (3.77-5.09) M/uL Hgb (11.7-15.5) g/dL Hct (34.0-46.0) % MCV (84.0-98.0) fL MCH (28.2-33.3) pg MCHC (31.7-36.0) g/dL RDW (11.2-14.1) % Plt Count (150-350) K/uL Neut % (Auto) (45.0-80.0) % Lymph % (Auto) (10.0-50.0) % [place] % (Auto) (2.0-14.0) % Eos % (Auto) (0.0-5.0) % Baso % (Auto) (0.0-2.0) % Neut # (Auto) (1.40-7.00) K/uL Lymph # (Auto) (0.50-3.50) K/uL [place] # (Auto) (0.00-1.00) K/uL Eos # (Auto) (0.00-0.50) K/uL Baso # (Auto) (0.00-0.20) K/uL D-Dimer, Quantitative (0-400) ng/mL Sodium (136-145) mmol/L Potassium (3.5-5.1) mmol/L Chloride (98-107) mmol/L Carbon Dioxide (21.0-32.0) mmol/L BUN (7-18) mg/dL Creatinine (0.51-1.17) mg/dL Est Cr Clr Drug Dosing mL/min Estimated GFR (MDRD) mL/min Glucose (70-99) mg/dL Hemoglobin A1c 6.1 H (4.3-5.7) % Lactic Acid (0.4-2.0) mmol/L Calcium (8.5-10.1) mg/dL Magnesium (1.8-2.4) mg/dL Total Bilirubin (0.2-1.0) mg/dL AST (15-37) U/L ALT (12-78) U/L Alkaline Phosphatase (46-116) IU/L Troponin I (0.000-0.056) ng/mL NT-Pro-B Natriuret Pep (0-125) pg/mL Total Protein (6.4-8.2) g/dL Albumin (3.4-5.0) g/dL TSH, Ultra Sensitive (0.358-3.740) mIU/mL Specimen Type Urine Color Urine Appearance Urine pH (5.0-9.0) Ur Specific [place] (1.005-1.030) Urine Protein (NEGATIVE) mg/dL Urine Glucose (UA) (NEGATIVE) mg/dL Urine Ketones (NEGATIVE) mg/dL Urine Occult Blood (NEGATIVE) Urine Nitrite (NEGATIVE) Urine Bilirubin (NEGATIVE) Urine Urobilinogen (0.2-1.0) E.U./dL Ur Leukocyte Esterase (NEGATIVE) Urine RBC /HPF Urine WBC /HPF Ur Epithelial Cells /LPF Urine Bacteria (NONE TO FEW) /HPF Result Diagrams: 05/11/21 08:00 05/11/21 08:00 Sepsis Event Note - Evaluation Sepsis Screening Result: No Definite Risk - Focused Exam Vital Signs: Vital Signs Temp Pulse Resp BP Pulse Ox 05/11/21 07:58 36.3 C 60 18 120/76 99 05/11/21 04:00 36.4 C 50 L 14 103/60 97 05/11/21 00:00 36.1 C 67 14 96/47 L 96 - Problem List & Annotations (1) Chest pain SNOMED Code(s): 93869303 Code(s): R07.9 - CHEST PAIN, UNSPECIFIED Status: Acute Priority: High Current Visit: Yes Qualifiers: Chest pain type: unspecified Qualified Code(s): R07.9 - Chest pain, unspecified Annotation/Comment:: Was left sided with intermittent radiation down left arm. Reproduced partially with palpation left sternal border. Troponins negative. No acute changes on EKG. Today patient has intermittent discomfort left lower rib border. Other chest pain with left arm radiation resolved. It was noted that patient was more uncomfortable and complained of the SOB feeling when heart rate decreased to high 30s/mid 40s yesterday. Today's complaint may be related to patient's GERD history. Toprol XL held after disussing patient with [facility]. Rate is now 50s/60s. Will keep patient under observation today/continue telemetry. Recheck Troponin tonight and in AM. If patient cont inues to do well anticipate discharge tomorrow with close follow up by [facility]. (2) Bradycardia SNOMED Code(s): 93904922 Code(s): R00.1 - BRADYCARDIA, UNSPECIFIED Status: Acute Priority: High Current Visit: Yes Annotation/Comment:: Patient did have Toprol XL increased around a month ago. Has been having episodes of feeling SOB the last few weeks. Did not have chest pain until evening prior to presenting to ER. Reviewed patient with from [facility]. She recommended observation/holding Toprol XL. Patient on telemetry. Heart rate now noted to be in 50s/60s with only intermittent drop to high 40s. No longer dropping down to high 30s. (3) CHF (congestive heart failure) SNOMED Code(s): 99913647 Code(s): I50.9 - HEART FAILURE, UNSPECIFIED Status: Chronic Priority: Medium Current Visit: Yes Onset Date: ~11/23/19 Qualifiers: Heart failure type: unspecified Heart failure chronicity: acute Qualified Code(s): I50.9 - Heart failure, unspecified Annotation/Comment:: Has been following with [facility]. No obvious acute fluid overload noted on workup/exam. (4) Peptic reflux disease SNOMED Code(s): 088800726 Code(s): K21.9 - GASTRO-ESOPHAGEAL REFLUX DISEASE WITHOUT ESOPHAGITIS Status: Chronic Priority: Medium Current Visit: Yes Annotation/Comment:: Is complaining of some low grade discomfort in left lower chest near rib border. May be GI in nature. GI cocktail ordered. (5) Osteoarthritis SNOMED Code(s): 514063960 Code(s): M19.90 - UNSPECIFIED OSTEOARTHRITIS, UNSPECIFIED SITE Status: Chronic Priority: Medium Current Visit: No Qualifiers: Osteoarthritis location: multiple joints Osteoarthritis type: primary Annotation/Comment:: Stable by history (6) Mixed anxiety depressive disorder SNOMED Code(s): 478298189 Code(s): F41.8 - OTHER SPECIFIED ANXIETY DISORDERS Status: Chronic Priority: Medium Current Visit: No Annotation/Comment:: Stable by history. Continue to observe closely with no current medical therapy. (7) COPD (chronic obstructive pulmonary disease) SNOMED Code(s): 44415568 Code(s): J44.9 - CHRONIC OBSTRUCTIVE PULMONARY DISEASE, UNSPECIFIED Status: Chronic Priority: Medium Current Visit: No Qualifiers: COPD type: emphysema Emphysema type: panlobular Qualified Code(s): J43.1 - Panlobular emphysema Annotation/Comment:: No recent bronchitic type symptoms, fever, etc.. Note history of sarcoidosis as above with no current medical therapy required. (8) Hypertension SNOMED Code(s): 20302065 Code(s): I10 - ESSENTIAL (PRIMARY) HYPERTENSION Status: Chronic Priority: Medium Current Visit: No Qualifiers: Hypertension type: essential hypertension Qualified Code(s): I10 - Essential (primary) hypertension Annotation/Comment:: Somewhat elevated in ER. Improved after Nitro SL. Continue to observe trends. (9) Sarcoidosis SNOMED Code(s): 01863878 Code(s): D86.9 - SARCOIDOSIS, UNSPECIFIED Status: Chronic Priority: Medium Current Visit: No Annotation/Comment:: stable per history (10) CAD (coronary artery disease) SNOMED Code(s): 84047158 Code(s): I25.10 - ATHSCL HEART DISEASE OF [place] CORONARY ARTERY W/O ANG PCTRS Status: Chronic Priority: High Current Visit: No Qualifiers: Coronary Disease-Associated Artery/Lesion type: unspecified vessel or lesion type [place] vs. transplanted heart: [place] heart Associated angina: with unspecified angina Qualified Code(s): I25.119 - Atherosclerotic heart disease of [place] [place] coronary artery with unspecified angina pectoris Annotation/Comment:: Has had previous stents. No acute changes noted on EKG suggestive of obvious ischemia. Negative troponin. No change in chest pain complaint with nitro SL (11) Elevated LFTs SNOMED Code(s): 317094684 Code(s): R94.5 - ABNORMAL RESULTS OF LIVER FUNCTION STUDIES Status: Chronic Priority: High Current Visit: No Onset Date: 01/04/20 Annotation/Comment:: Possibly secondary to CHF and/or fatty liver. - Problem List Review Problem List Initiated/Reviewed/Updated: Yes - My Orders Last 24 Hours: My Active Orders 05/10/21 11:48 EKG Documentation Completion [RC] ASDIRECTED Sodium Chloride 0.9% [Saline Flush] 10 ml FLUSH ASDIRECTED PRN Saline Lock Insert [OM.PC] Routine 05/10/21 11:49 Chest 1V Frontal [CR] Stat 05/10/21 14:00 Vital Signs [RC] Q4HR 05/10/21 14:55 Patient Status [ADT] Routine Oxygen Therapy [RC] 23[address] Up [address] [place] [RC] ASDIRECTED VTE/DVT Education [RC] PER UNIT ROUTINE Acetaminophen [TylenoL] 650 mg PO Q4H PRN Resuscitation Status Routine 05/10/21 14:57 Pulse Oximetry [RC] .PRN 05/10/21 14:58 Telemetry Monitoring [Cardiac Monitoring] [RC] Q2HR Docusate Sodium/Sennosides [Senna Plus] 1 tab PO DAILY PRN Gabapentin [Neurontin] 200 mg PO BID PRN Nitroglycerin [Nitrostat] 0.4 mg SL ASDIRECTED PRN oxyCODONE 5 mg PO Q6HR PRN 05/10/21 Dinner Regular Diet [DIET] 05/10/21 20:00 Losartan [Cozaar] 125 mg PO BEDTIME atorvaSTATin [Lipitor] 80 mg PO BEDTIME 05/10/21 21:41 EKG Documentation Completion [RC] ASDIRECTED 05/11/21 08:00 Clopidogrel [Plavix] 75 mg PO DAILY Fluticasone Propionate [Flonase] 0 gm NASBOTH DAILY Furosemide [Lasix] 20 mg PO DAILY Pantoprazole [ProTONIX] 40 mg PO DAILY 05/11/21 18:00 TROPONIN I [CHEM] Timed 05/12/21 05:11 COMPREHENSIVE METABOLIC PN,CMP [CHEM] AM TROPONIN I [CHEM] AM 05/12/21 05:15 CBC WITH AUTO DIFF [HEME] AM - Assessment Assessment:: as above - Plan Plan:: as above. Continue to observe for changes. If continues to do well anticipate discharge tomorrow. Toprol XL dose will change to 50mg daily from the 100mg daily. Follow up with [facility] will be arranged.
[2021-05-11] MEDS: Losartan 50 MG Tab PO SCH (19:36)
[2021-05-11] MEDS: atorvaSTATin 40 MG Tab PO SCH (19:36)
[2021-05-12] MEDS: Furosemide 40 MG Tab PO SCH (07:18)
[2021-05-12] MEDS: Pantoprazole 40 MG Tab.CR PO SCH (07:19)
[2021-05-12] MEDS: Fluticasone Propionate Nasal Spray 16 GM Bottle NASBOTH SCH (07:19)
[2021-05-12] MEDS: Clopidogrel 75 MG Tab PO SCH (07:19)
--- NOTE | 2021-05-12 13:07 | PCM.DCSUM1 ---
Discharge Summary - Hospital Course Brief History: Patient admitted for further evaluation of chest discomfort and SOB thought to be due to bradycardia. Diagnosis: Stroke: No - Discharge Data Discharge Date: 05/12/21 Discharge Disposition: Home, Self-Care 01 Condition: Good - Referral to Home Health Primary Care Physician: Cate Ma PA-C - Discharge Diagnosis/Problem(s) (1) Chest pain SNOMED Code(s): 36353925 ICD Code: R07.9 - CHEST PAIN, UNSPECIFIED Status: Acute Priority: High Current Visit: Yes Problem Details: Pain-free since heart rate has increased. Was having left sided pain with intermittent radiation down left arm. Reproduced partially with palpation left sternal border. Troponins negative. No acute changes on EKG. It was noted that patient was more uncomfortable and complained of the SOB feeling when heart rate decreased to high 30s/mid 40s when in ER. Toprol XL held after discussing patient with [facility]/. Toprol dose upped to 100mg daily approx one month ago. Patient has been noticing the intermittent SOB for several weeks. Qualifiers: Chest pain type: unspecified Qualified Code(s): R07.9 - Chest pain, unspecified (2) Bradycardia SNOMED Code(s): 48173571 ICD Code: R00.1 - BRADYCARDIA, UNSPECIFIED Status: Acute Priority: High Current Visit: Yes Problem Details: Patient did have Toprol XL increased around a month ago. Has been having episodes of feeling SOB the last few weeks. Did not have chest pain until evening prior to presenting to ER. Reviewed patient with from [facility]. She recommended observation/holding Toprol XL. Patient's rate has slowly been improving since then and last 24 hours has been in the 60s. No longer dropping down to high 30s. (3) CHF (congestive heart failure) SNOMED Code(s): 94874925 ICD Code: I50.9 - HEART FAILURE, UNSPECIFIED Status: Chronic Priority: Medium Current Visit: Yes Onset Date: ~11/23/19 Problem Details: Has been following with [facility]. No obvious acute fluid overload noted on workup/exam. Qualifiers: Heart failure type: unspecified Heart failure chronicity: acute Qualified Code(s): I50.9 - Heart failure, unspecified (4) Peptic reflux disease SNOMED Code(s): 557399259 ICD Code: K21.9 - GASTRO-ESOPHAGEAL REFLUX DISEASE WITHOUT ESOPHAGITIS Status: Chronic Priority: Medium Current Visit: Yes Problem Details: Was complaining of some low grade discomfort in left lower chest near rib border. May be GI in nature. GI cocktail ordered. Resolved at this time (5) Osteoarthritis SNOMED Code(s): 401805833 ICD Code: M19.90 - UNSPECIFIED OSTEOARTHRITIS, UNSPECIFIED SITE Status: Chronic Priority: Medium Current Visit: No Problem Details: Stable by history Qualifiers: Osteoarthritis location: multiple joints Osteoarthritis type: primary Qualified Code(s): M89.49 - Other hypertrophic osteoarthropathy, multiple sites (6) Mixed anxiety depressive disorder SNOMED Code(s): 726329107 ICD Code: F41.8 - OTHER SPECIFIED ANXIETY DISORDERS Status: Chronic Priority: Medium Current Visit: No Problem Details: Stable by history. Continue to observe closely with no current medical therapy. (7) COPD (chronic obstructive pulmonary disease) SNOMED Code(s): 68760618 ICD Code: J44.9 - CHRONIC OBSTRUCTIVE PULMONARY DISEASE, UNSPECIFIED Status: Chronic Priority: Medium Current Visit: No Problem Details: No recent bronchitic type symptoms, fever, etc.. Note history of sarcoidosis as above with no current medical therapy required. Qualifiers: COPD type: emphysema Emphysema type: panlobular Qualified Code(s): J43.1 - Panlobular emphysema (8) Hypertension SNOMED Code(s): 73286912 ICD Code: I10 - ESSENTIAL (PRIMARY) HYPERTENSION Status: Chronic Priority: Medium Current Visit: No Problem Details: Somewhat elevated in ER. Improved after Nitro SL. Continue to observe trends. Qualifiers: Hypertension type: essential hypertension Qualified Code(s): I10 - Essential (primary) hypertension (9) Sarcoidosis SNOMED Code(s): 15335841 ICD Code: D86.9 - SARCOIDOSIS, UNSPECIFIED Status: Chronic Priority: Medium Current Visit: No Problem Details: stable per history (10) CAD (coronary artery disease) SNOMED Code(s): 30738639 ICD Code: I25.10 - ATHSCL HEART DISEASE OF [place] CORONARY ARTERY W/O ANG PCTRS Status: Chronic Priority: High Current Visit: No Problem Details: Has had previous stents. No acute changes noted on EKG suggestive of obvious ischemia. Negative troponin. No change in chest pain complaint with nitro SL Qualifiers: Coronary Disease-Associated Artery/Lesion type: unspecified vessel or lesion type [place] vs. transplanted heart: [place] heart Associated angina: with unspecified angina (11) Elevated LFTs SNOMED Code(s): 764256381 ICD Code: R94.5 - ABNORMAL RESULTS OF LIVER FUNCTION STUDIES Status: Chronic Priority: High Current Visit: No Onset Date: 01/04/20 Problem Details: Possibly secondary to CHF and/or fatty liver. (12) Elevated hemoglobin A1c SNOMED Code(s): 038012831 ICD Code: R73.09 - OTHER ABNORMAL GLUCOSE Status: Chronic Priority: Medium Current Visit: Yes Problem Details: Mild elevation. Discussed carb controlled diet/whole foods diet with patient. To follow up with PCP. (13) Adverse drug effect SNOMED Code(s): 39100217 ICD Code: T50.905A - ADVERSE EFFECT OF UNSP DRUG/MEDS/BIOL SUBST, INIT Status: Acute Priority: High Current Visit: Yes Problem Details: Bradycardia triggered by Toprol XL Qualifiers: Encounter type: initial encounter Qualified Code(s): T50.905A - Adverse effect of unspecified drugs, medicaments and biological substances, initial encounter - Patient Summary/Data Hospital Course: Patient's heart rate slowly improved over last 48 hours. Complaint of chest discomfort and SOB resolved once heart rate stopped dipping down into upper 30s and mid 40s. Troponins negative. Patient's response does suggest that presentin g complaints were linked to bradycardia induced by Toprol XL. Vital signs stable with BPs trending low. Patient says she has always had low blood pressure and feels that all of the medications she is now on for BP/cardiac function since receiving stents is making her worse. Also complains that her cholesterol med has been causing chronic muscle pain. Discussed backing off on the cholesterol medication/tapering plan. She can revisit starting another cholesterol medication when she checks in with cardiology next month. Mild elevation of A1c also noted. Patient plans to work on that via diet choices at this time. - Patient Instructions Diet: Anti-Inflammatory, Limited Carb Activity: Apply Ice Driving: May Drive Today Showering/Bathing: May Shower Other/Special Instructions: Follow up with Cardiology as scheduled. Start CoQ10 as you should be on it if you are on cholesterol medication. We will try to start to taper the Lipitor. Go to 40mg at night for one week. Then go to 20mg every night for a week. After that you can go to every other day for a week then every third day for a week/then stop if you really want to get off of it. Speak to Cardiology about trying something different to see if you can find one that does not cause muscle pain/fatigue. Keep track of your blood pressures at home. Bring up to Cardiology how dizzy you are getting/nearly passing out and bring your BP readings. This will help you work with them on trying to get doses decreased so that you have better quality of life/increased safety. We did send a prescription in to decrease your Metoprolol to 50mg daily. Remember to count carbs and target 100-125mg daily. See if that helps improve your A1C. Follow up otherwise as needed with your clinic or in ER if you have other problems/concerns. - Discharge Plan *PRESCRIPTION DRUG MONITORING PROGRAM REVIEWED*: Not Applicable *COPY OF PRESCRIPTION DRUG MONITORING REPORT IN PATIENT PANCHO: Not Applicable Prescriptions/Med Rec: Ubidecarenone [Co Q-10] 100 mg PO DAILY #90 capsule atorvaSTATin Calcium [Lipitor] 20 mg PO ASDIRECTED #40 tablet Metoprolol Succinate [Toprol Xl] 50 mg PO DAILY #30 tab.er.24h Home Medications: Home Meds Aspirin 81 mg PO DAILY 11/16/19 [History] Clopidogrel [Plavix] 75 mg PO DAILY 11/16/19 [History] Bacillus Coagulans [Probiotic] 1 tab PO DAILY 04/25/20 [History] Losartan [Cozaar] 25 mg PO BEDTIME 04/25/20 [History] Furosemide 20 mg PO DAILY 08/07/20 [History] Nitroglycerin [Nitrostat] 0.4 mg SL ASDIRECTED PRN 08/07/20 [History] Omeprazole 40 mg PO DAILY 08/07/20 [History] Alendronate Sodium [Fosamax] 70 mg PO WEEKLY 05/10/21 [History] Cholecalciferol (Vitamin D3) [Vitamin D3] 50 mcg PO DAILY 05/10/21 [History] Fluticasone Propionate [Flonase] 1 spray INH DAILY 05/10/21 [History] Gabapentin [Neurontin] 2 cap PO BID PRN 05/10/21 [History] Losartan Potassium 100 mg PO BEDTIME 05/10/21 [History] Sennosides/Docusate Sodium [Senna-Docusate Sodium Tablet] 1 each PO DAILY PRN 05/10/21 [History] oxyCODONE 5 mg PO Q6HR PRN 05/10/21 [History] Metoprolol Succinate [Toprol Xl] 50 mg PO DAILY #30 tab.er.24h 05/12/21 [Rx] Ubidecarenone [Co Q-10] 100 mg PO DAILY #90 capsule 05/12/21 [Rx] atorvaSTATin Calcium [Lipitor] 20 mg PO ASDIRECTED #40 tablet 05/12/21 [Rx] Forms: ED Department Discharge Referrals: Cate Ma PA-C [Primary Care Provider] - - Discharge Summary/Plan Comment DC Time >30 min.: No - General Info Date of Service: 05/12/21 Admission Dx/Problem (Free Text: Admitted for continued workup of chest pain, bradycardia, intermittent SOB associated with bradycardia. Subjective Update: Patient feels good. No acute complaints. Functional Status: Reports: Pain Controlled Numeric/FACES Score: 0 - Review of Systems General: Reports: No Symptoms HEENT: Reports: No Symptoms Pulmonary: Reports: No Symptoms Cardiovascular: Reports: No Symptoms Gastrointestinal: Reports: No Symptoms Genitourinary: Reports: No Symptoms Musculoskeletal: Reports: Other (no acute changes from baseline) Skin: Reports: No Symptoms Neurological: Reports: No Symptoms Psychiatric: Reports: No Symptoms - Patient Data Vitals - Most Recent: Last Vital Signs Temp 36.2 C 05/12/21 12:00 Pulse 66 05/12/21 12:00 Resp 20 05/12/21 12:00 BP 130/80 05/12/21 12:00 Pulse Ox 99 05/12/21 12:00 Weight - Most Recent: 79.968 kg I&O - Last 24 hours: Intake & Output 05/11/21 05/12/21 05/12/21 22:59 06:59 14:59 Intake Total 300 600 Balance 300 600 Lab Results - Last 24 hrs: Laboratory Results - last 24 hr 05/11/21 05/12/21 05/12/21 Range/Units 17:37 07:00 07:00 WBC 5.5 (4.0-10.2) K/uL RBC 4.09 (3.77-5.09) M/uL Hgb 12.7 (11.7-15.5) g/dL Hct 38.7 (34.0-46.0) % MCV 94.6 (84.0-98.0) fL MCH 31.1 (28.2-33.3) pg MCHC 32.8 (31.7-36.0) g/dL RDW 12.9 (11.2-14.1) % Plt Count 198 (150-350) K/uL Neut % (Auto) 40.8 L (45.0-80.0) % Lymph % (Auto) 46.1 (10.0-50.0) % [place] % (Auto) 9.3 (2.0-14.0) % Eos % (Auto) 3.3 (0.0-5.0) % Baso % (Auto) 0.5 (0.0-2.0) % Neut # (Auto) 2.25 (1.40-7.00) K/uL Lymph # (Auto) 2.54 (0.50-3.50) K/uL [place] # (Auto) 0.51 (0.00-1.00) K/uL Eos # (Auto) 0.18 (0.00-0.50) K/uL Baso # (Auto) 0.03 (0.00-0.20) K/uL Sodium 144 (136-145) mmol/L Potassium 4.4 (3.5-5.1) mmol/L Chloride 110 H (98-107) mmol/L Carbon Dioxide 26.0 (21.0-32.0) mmol/L BUN 22 H (7-18) mg/dL Creatinine 1.03 (0.51-1.17) mg/dL Est Cr Clr Drug Dosing 45.77 mL/min Estimated GFR (MDRD) 53 mL/min Glucose 121 H (70-99) mg/dL Calcium 9.0 (8.5-10.1) mg/dL Total Bilirubin 0.4 (0.2-1.0) mg/dL AST 67 H (15-37) U/L ALT 83 H (12-78) U/L Alkaline Phosphatase 46 (46-116) IU/L Troponin I 0.006 0.000 (0.000-0.056) ng/mL Total Protein 6.1 L (6.4-8.2) g/dL Albumin 2.9 L (3.4-5.0) g/dL Med Orders - Current: Current Medications Acetaminophen (Acetaminophen 325 Mg Tab) 650 mg PO Q4H PRN PRN Reason: Pain (Mild 1-3)/fever Atorvastatin Calcium (Atorvastatin 40 Mg Tab) 80 mg PO BEDTIME [facility] Last Admin: 05/11/21 19:36 Dose: 80 mg Documented by: Clopidogrel Bisulfate (Clopidogrel 75 Mg Tab) 75 mg PO DAILY [facility] Last Admin: 05/12/21 07:19 Dose: 75 mg Documented by: Fluticasone Propionate (Fluticasone Propionate Nasal [place] 16 Gm Bottle) 0 gm NASBOTH DAILY [facility] Last Admin: 05/12/21 07:19 Dose: 1 spray Documented by: Furosemide (Furosemide 40 Mg Tab) 20 mg PO DAILY [facility] Last Admin: 05/12/21 07:18 Dose: 20 mg Documented by: Gabapentin (Gabapentin 100 Mg Cap) 200 mg PO BID PRN PRN Reason: Pain Losartan Potassium (Losartan 50 Mg Tab) 125 mg PO BEDTIME [facility] Last Admin: 05/11/21 19:36 Dose: 125 mg Documented by: Nitroglycerin (Nitroglycerin 0.4 Mg Tab.Sl) 0.4 mg SL ASDIRECTED PRN PRN Reason: Chest Pain Oxycodone HCl (Oxycodone 5 Mg Tab) 5 mg PO Q6HR PRN PRN Reason: pain Pantoprazole Sodium (Pantoprazole 40 Mg Tab.Cr) 40 mg PO DAILY [facility] Last Admin: 05/12/21 07:19 Dose: 40 mg Documented by: Senna/Docusate Sodium (Docusate Sodium/Sennosides 50-8.6 Mg Tab) 1 tab PO DAILY PRN PRN Reason: constipation Sodium Chloride (Sodium Chloride 0.9% 10 Ml Syringe) 10 ml FLUSH ASDIRECTED PRN PRN Reason: Keep Vein Open Last Admin: 05/10/21 13:50 Dose: 10 ml Documented by: Discontinued Medications Al Hydroxide/Mg Hydroxide (Gi Cocktail Oral Solution 30 Ml) 30 ml PO ONETIME ONE Stop: 05/11/21 08:19 Last Admin: 05/11/21 08:51 Dose: 30 ml Documented by: Aspirin (Aspirin 81 Mg Tab.Chew) Confirm Administered Dose 324 mg .ROUTE .STK- MED ONE Stop: 05/10/21 11:33 Last Admin: 05/10/21 11:47 Dose: Not Given Documented by: Aspirin (Aspirin 81 Mg Tab.Chew) 324 mg PO ONETIME ONE Stop: 05/10/21 11:48 Last Admin: 05/10/21 11:52 Dose: Not Given Documented by: Ketorolac Tromethamine (Ketorolac 15 Mg/Ml Sdv) 15 mg IM ONETIME ONE Stop: 05/10/21 15:03 Last Admin: 05/10/21 19:47 Dose: Not Given Documented by: Ketorolac Tromethamine (Ketorolac 15 Mg/Ml Sdv) 15 mg IVPUSH ONETIME ONE Stop: 05/10/21 15:51 Last Admin: 05/10/21 15:51 Dose: 15 mg Documented by: Lorazepam (Lorazepam 2 Mg/Ml Sdv) 0.5 mg IVPUSH ONETIME ONE Stop: 05/10/21 16:00 Last Admin: 05/10/21 17:35 Dose: 0.5 mg Documented by: Morphine Sulfate (Morphine 2 Mg/Ml Syringe) 2 mg IVPUSH ONETIME ONE Stop: 05/10/21 13:25 Last Admin: 05/10/21 13:48 Dose: 2 mg Documented by: Nitroglycerin (Nitroglycerin 0.4 Mg Tab.Sl) Confirm Administered Dose 0.4 mg .ROUTE .STK-MED ONE Stop: 05/10/21 11:34 Last Admin: 05/10/21 11:53 Dose: Not Given Documented by: Nitroglycerin (Nitroglycerin 0.4 Mg Tab.Sl) 0.4 mg SL Q5M PRN PRN Reason: Chest Pain Last Admin: 05/10/21 12:31 Dose: 0.4 mg Documented by: Non-Formulary Medication (Losartan [Cozaar]) 25 mg PO BEDTIME ESTER Ondansetron HCl (Ondansetron 4 Mg/2 Ml Sdv) 4 mg IVPUSH ONETIME ONE Stop: 05/10/21 13:26 Last Admin: 05/10/21 13:48 Dose: 4 mg Documented by: - Exam General: Reports: Alert, Oriented, Cooperative, No Acute Distress HEENT: Reports: Pupils Equal, Pupils Reactive, EOMI, Mucous Membr. Moist/[place] Neck: Reports: Supple Lungs: Reports: Clear to Auscultation, Normal Respiratory Effort Cardiovascular: Reports: Regular Rate, Regular Rhythm GI/Abdominal Exam: Normal Bowel Sounds, Non-Tender, No Distention (Female) Exam: Deferred Rectal (Female) Exam: Deferred Back Exam: Reports: Normal Inspection Extremities: Normal Inspection, Normal Range of Motion, Non-Tender, Normal Capillary Refill Skin: Reports: Warm, Dry Neurological: Reports: No New Focal Deficit Psy/Mental Status: Reports: Alert, Normal Affect, Normal Mood
== END 2021-05-12 14:05 | disposition home or self-care (01) ==
LOC: LL.ED 11:28 → LL.MS 13:35
PROVIDERS: ADMIT Emergency Medicine; ATTEND Emergency Medicine
DX: R07.9 Chest pain, unspecified (principal); D86.9 Sarcoidosis, unspecified; I25.10 Atherosclerotic heart disease of native coronary artery without angina pectoris; I11.0 Hypertensive heart disease with heart failure; I50.9 Heart failure, unspecified; E78.00 Pure hypercholesterolemia, unspecified; I25.2 Old myocardial infarction; Z95.5 Presence of coronary angioplasty implant and graft; Z88.2 Allergy status to sulfonamides; Z88.8 Allergy status to other drugs, medicaments and biological substances; Z91.030 Bee allergy status; Z79.82 Long term (current) use of aspirin; Z79.899 Other long term (current) drug therapy; Z98.890 Other specified postprocedural states
CPT/HCPCS: 36415; 71045; 80053; 81001; 83036; 83605; 83735; 83880; 84443; 84484; 85025; 85379; 93005; 96374; 96375; 99217; 99220; 99225; 99285-25; A9270-GY; G0378; J1885; J2060; J2270; J2405

== ENCOUNTER 2022-03-16 15:04 | Emergency (ER) | payer MEDICARE, OTHER ==
[2022-03-16] MEDS ORDERED: Sodium Chloride 0.9% 10 ML Syringe FLUSH PRN (15:11)
[2022-03-16] MEDS: Aspirin 81 MG Tab.Chew PO ONE (15:16)
[2022-03-16] MEDS: Nitroglycerin 0.4 MG Tab.SL SL PRN (15:17)
[2022-03-16] MEDS: Lactated Ringers 1,000 ML IV SCH (15:19)
[2022-03-16 15:43] LABS: ANION GAP 9.3 meq/L (7-15); CHLORIDE,CL 101 mmol/L (98-107); SODIUM,NA 138 mmol/L (136-145)
== END 2022-03-16 19:00 | disposition home or self-care (01) ==
LOC: LL.ED 15:04
DX: R07.89 Other chest pain (principal); I11.0 Hypertensive heart disease with heart failure; I50.9 Heart failure, unspecified; I25.10 Atherosclerotic heart disease of native coronary artery without angina pectoris; E78.00 Pure hypercholesterolemia, unspecified; J44.9 Chronic obstructive pulmonary disease, unspecified; Z79.82 Long term (current) use of aspirin; Z79.899 Other long term (current) drug therapy
CPT/HCPCS: 36415; 71045; 80053; 83605; 83735; 84100; 84484; 85025; 93005; 93010; 99284; 99285; A9270; J7120

== ENCOUNTER 2022-05-28 01:11 | Observation (INO) | payer MEDICARE, OTHER ==
[2022-05-28] MEDS ORDERED: GI Cocktail Oral Solution 30 ML PO ONE (01:15)
[2022-05-28 02:03] LABS: ANION GAP 7.2 meq/L (7-15); CHLORIDE,CL 106 mmol/L (98-107); SODIUM,NA 140 mmol/L (136-145)
[2022-05-28 02:04] LABS: ESTIMATED GFR 32 mL/min (>=60)
[2022-05-28] MEDS ORDERED: Iopamidol 612 MG/ML 100 ML Bottle IVPUSH ONE (02:11)
[2022-05-28] MEDS ORDERED: Ondansetron 4 MG/2 ML SDV IVPUSH ONE (02:17)
[2022-05-28] MEDS ORDERED: fentaNYL 50 MCG/ML SDV IVPUSH ONE (02:17)
[2022-05-28] MEDS ORDERED: Sodium Chloride 0.9% 1,000 ML IV ONE (02:33)
[2022-05-28] MEDS ORDERED: oxyCODONE 5 MG Tab PO PRN (02:55)
[2022-05-28] MEDS ORDERED: Acetaminophen 325 MG Tab PO PRN (02:55)
[2022-05-28] MEDS ORDERED: HYDROmorphone 1 MG/ML Syringe IVPUSH PRN (02:55)
[2022-05-28] MEDS ORDERED: Ondansetron 4 MG/2 ML SDV IVPUSH PRN (02:55)
[2022-05-28] MEDS: Sodium Chloride 0.9% 1,000 ML IV SCH ×2 (05:34→13:33)
== END 2022-05-28 17:30 | disposition home or self-care (01) ==
LOC: LL.ED 01:11 → LL.MS 02:15
PROVIDERS: ADMIT Emergency Medicine; ATTEND Emergency Medicine
DX: R10.11 Right upper quadrant pain (principal); I25.10 Atherosclerotic heart disease of native coronary artery without angina pectoris; I50.9 Heart failure, unspecified; E78.00 Pure hypercholesterolemia, unspecified; J44.9 Chronic obstructive pulmonary disease, unspecified; F41.9 Anxiety disorder, unspecified; F32.A Depression, unspecified; E53.8 Deficiency of other specified B group vitamins; N28.9 Disorder of kidney and ureter, unspecified; I11.0 Hypertensive heart disease with heart failure; E78.5 Hyperlipidemia, unspecified; M81.0 Age-related osteoporosis without current pathological fracture; B30.9 Viral conjunctivitis, unspecified; Z88.2 Allergy status to sulfonamides; Z88.8 Allergy status to other drugs, medicaments and biological substances; Z79.82 Long term (current) use of aspirin; Z98.890 Other specified postprocedural states; Z79.899 Other long term (current) drug therapy
CPT/HCPCS: 36415; 71045; 74177; 76700; 80053; 82150; 83605; 83690; 83880; 84484; 85025; 85379; 93005; 96374; 96375; 99285; A9270-GY; G0378; J1170; J2405; J3010; J7030; Q9967

== ENCOUNTER 2022-10-02 10:24 | Emergency (ER) | payer MEDICARE, OTHER ==
[2022-10-02 12:01] LABS: ANION GAP 9.9 meq/L (7-15); CHLORIDE,CL 104 mmol/L (98-107); ESTIMATED GFR 44 mL/min (>=60); SODIUM,NA 141 mmol/L (136-145)
== END 2022-10-02 12:59 ==
LOC: LL.ED 10:24
DX: M79.662 Pain in left lower leg (principal); I25.10 Atherosclerotic heart disease of native coronary artery without angina pectoris; I11.0 Hypertensive heart disease with heart failure; E78.00 Pure hypercholesterolemia, unspecified; J44.9 Chronic obstructive pulmonary disease, unspecified; Z91.030 Bee allergy status; Z88.2 Allergy status to sulfonamides; Z88.8 Allergy status to other drugs, medicaments and biological substances; Z79.82 Long term (current) use of aspirin; Z79.02 Long term (current) use of antithrombotics/antiplatelets; Z79.899 Other long term (current) drug therapy
CPT/HCPCS: 36415; 73562-LT; 80053; 83880; 85025; 85379; 99284